=== PATIENT | female | born 1975 | race Caucasian/White ===

== ENCOUNTER 2016-07-12 11:07 | Emergency (ER) | payer OTHER ==
[~2016-07-12] VITALS: Ht 167.6 cm; Wt 132.5 kg
[~2016-07-12 11:07] MED LIST: FURO20TA3 PO; LACT20SO12 PO; PANT40TA3 PO; PROP10TA6 PO; [UNRECOGNIZED DRUG - CODE] PO
[2016-07-12 11:13] VITALS: Ht 167.6 cm; Wt 132.5 kg
[2016-07-12 12:33] LABS: HEMATOCRIT 24.6 % (37.0-47.0); HEMOGLOBIN 7.4 g/dl (12.0-16.0); MEAN CORPUSCULAR HEMOGLOBIN 20.2 pg (29.0-33.0); MEAN CORPUSCULAR HGB CONC 30.1 g/dl (32.0-37.0); MEAN CORPUSCULAR VOLUME 67.3 fl (82.0-101.0); MEAN PLATELET VOLUME 9.4 fl (7.4-10.4); PLATELET COUNT 139 10^3/UL (140-440); RED BLOOD COUNT 3.65 10^6/ul (4.20-5.40); RED CELL DISTRIBUTION WIDTH 19.7 % (11.5-14.5); UNCORRECTED WBC 3.4 10^3/ul (4.8-10.8); WHITE BLOOD COUNT 3.4 10^3/ul (4.8-10.8)
[2016-07-12 12:34] LABS: CONDITION 1; LH ANALYZER COMMENTS 1
[2016-07-12 12:47] LABS: ALBUMIN 4.4 g/dl (3.3-4.9); CHLORIDE 104 mmol/L (97-110)
[2016-07-12 12:48] LABS: POTASSIUM 4.7 mmol/L (3.5-5.1); SODIUM 143 mmol/L (135-144)
[2016-07-12 12:50] LABS: ALBUMIN/GLOBULIN RATIO 0.84; ANION GAP 19 (8-16); ASPARTATE AMINO TRANSFERASE 54 IU/L (15-46); BLOOD UREA NITROGEN 13 mg/dl (7-20); CARBON DIOXIDE 25 mmol/L (21-31); CREATININE 0.65 mg/dl (0.44-1.00); TOTAL PROTEIN 9.6 g/dl (6.1-8.1)
[2016-07-12 12:51] LABS: ALANINE AMINOTRANSFERASE 27 IU/L (13-69); ALKALINE PHOSPHATASE 128 IU/L (42-121); CALCIUM 10.2 mg/dl (8.4-10.2); GLUCOSE 86 mg/dl (70-220)
[2016-07-12 12:58] LABS: B-TYPE NATRIURETIC PEPTIDE 175 PG/ML (0-125)
[2016-07-12 13:05] LABS: INR 1.13; PROTIME 14.5 Sec (12.2-14.2); PT RATIO 1.1
[2016-07-12 13:06] LABS: PARTIAL THROMBOPLASTIN TIME 32.7 Sec (25.0-35.0)
[2016-07-12 13:08] LABS: EOSINOPHILS # 0.1 10^3/ul (0.0-0.5); MONOCYTE # 0.1 10^3/ul (0.3-0.9); NEUTROPHIL # 2.1 10^3/ul (1.6-7.5); OVALOCYTES 1+
--- NOTE | 2016-07-12 13:08 | RADRPT ---
PROCEDURE: XR Chest. CLINICAL INDICATION: Chest pain TECHNIQUE: Single portable view of the chest was obtained COMPARISON: 04/05/16 FINDINGS: The heart is enlarged. The lungs are clear. There is no pleural effusion or pneumothorax. RPTAT: AA IMPRESSION: Mild Cardiomegaly. .Jose De Jesus Topete MD, MD Date Time Electronically viewed and signed by .Jose De Jesus Topete MD, on 07/12/2016 13:08 .S/
[2016-07-12 13:09] LABS: TROPONIN-I < 0.010 ng/ml (0.00-0.12)
[2016-07-12] MEDS ORDERED: LIDOCAINE 1% (MPF) 5 ML VIAL ONE (13:57)
--- NOTE | 2016-07-12 14:16 | ERD ---
ER Documentation Chief Complaint Date/Time DATE: 07/12/16 TIME: 14:14 Chief Complaint Complains of SOB, Hx of Ascites HPI This a 41-year-old female with a history of ascites due to liver cirrhosis. She is complaining she is getting shortness of breath over the past week or 2 and sure ascites is getting worse. She said when her ascites gets bad she has a hard time breathing. She also has anemia and is wondering if her shortness of breath is because of this. She states she has a very difficult blood type to match and he can take over 24 hours at times to find blood for her. She has no chest pain no cough no fever no abdominal pain no melena ROS All systems reviewed and are negative except as per history of present illness. Medications Home Meds Active Scripts Propranolol Hcl* (Propranolol Hcl*) 10 Mg Tablet, 10 MG PO TID for 30 Days, TAB Prov:DILLAN JOHNSON NP 04/10/16 Furosemide* (Furosemide*) 20 Mg Tablet, 20 MG PO BID for 30 Days, #30 TAB Prov:DILLAN JOHNSON NP 04/10/16 Pantoprazole* (Protonix*) 40 Mg Tablet.dr, 40 MG PO BID for 30 Days, TAB Prov:DILLAN JOHNSON NP 04/10/16 Levothyroxine Sodium* (Synthroid*) 200 Mcg Tablet, 275 MCG PO BEFORE BREAKFAST, #30 TAB Prov:DILLAN JOHNSON NP 04/10/16 Lactulose* (Cephulac*) 20 Gm/30 Ml Soln, 20 GM PO Q8 for 30 Days Prov:DILLAN JOHNSON NP 04/10/16 Allergies Allergies: Coded Allergies: No Known Allergy (Unverified , 07/12/16) PMhx/Soc History of Surgery: Yes (Left ankle sx, Abdominal sx) Anesthesia Reaction: No Hx Neurological Disorder: No Hx Respiratory Disorders: No Hx Cardiac Disorders: Yes (Murmurs) Hx Psychiatric Problems: No Hx Miscellaneous Medical Probl: Yes (Autoimmune hepatitis, lupus, cirrhosis, symptomatic anemia) Hx Alcohol Use: No Hx Substance Use: No Hx Tobacco Use: No Smoking Status: Never smoker FmHx Family History: No coronary disease Physical Exam Vitals Vital Signs Date Time Temp Pulse Resp B/P Pulse Ox O2 Delivery O2 Flow Rate FiO2 07/12/16 11:13 98.2 73 20 137/62 94 Physical Exam Const: Well-developed, well-nourished Head: Atraumatic, normocephalic Eyes: Normal Conjunctiva, PERRLA, EOMI, normal sclera, no nystagmus ENT: Normal External Ears, Nose and Mouth, moist mucus membranes. Neck: Full range of motion. No meningismus, no lymphadenopathy. Resp: Clear to auscultation bilaterally, no wheezing, rhonchi, rales Cardio: Regular rate and rhythm, no murmurs, S1 S2 present Abd: Soft, non tender x 4, mild to moderate distention with ascites. Normal bowel sounds, no guarding or rebound, no pulsitile abdominal masses or bruits Skin: No petechiae or rashes, no ecchymosis , no maculopapular rash Back: No midline or flank tenderness Ext: No cyanosis, or edema, FROM x 4, normal inspection, neurovascularly intact x 4 Neur: Awake and alert, STR 5/5 x 4, sensation intact x 4, no focal findings, cerebellum intact Psych: Normal Mood and Affect Result Diagram: 07/12/16 1210 07/12/16 1210 Results 24 hrs Laboratory Tests Test 07/12/16 12:10 Activated Partial Thromboplast Time 32.7Sec Alanine Aminotransferase (ALT/SGPT) 27IU/L Albumin 4.4g/dl Albumin/Globulin Ratio 0.84 Alkaline Phosphatase 128IU/L Anion Gap 19 Aspartate Amino Transf (AST/SGOT) 54IU/L B-Type Natriuretic Peptide 175PG/ML Blood Morphology Comment Blood Urea Nitrogen 13mg/dl Calcium Level 10.2mg/dl Carbon Dioxide Level 25mmol/L Chloride Level 104mmol/L Creatinine 0.65mg/dl Direct Bilirubin 0.00mg/dl Eosinophils # 0.110^3/ul Eosinophils % 4.0% Globulin 5.20g/dl Glucose Level 86mg/dl Hematocrit 24.6% Hemoglobin 7.4g/dl INR International Normalized Ratio 1.13 Indirect Bilirubin 1.0mg/dl Lymphocytes # 1.010^3/ul Lymphocytes % 30.0% Mean Corpuscular Hemoglobin 20.2pg Mean Corpuscular Hemoglobin Concent 30.1g/dl Mean Corpuscular Volume 67.3fl Mean Platelet Volume 9.4fl Monocytes # 0.110^3/ul Monocytes % 3.0% Neutrophils # 2.110^3/ul Neutrophils % 63.0% Nucleated Red Blood Cells # 10^3/ul Ovalocytes 1+ Platelet Count 72404^3/UL Potassium Level 4.7mmol/L Prothrombin Time 14.5Sec Prothrombin Time Ratio 1.1 Red Blood Count 3.6510^6/ul Red Cell Distribution Width 19.7% Sodium Level 143mmol/L Total Bilirubin 1.0mg/dl Total Protein 9.6g/dl Troponin I < 0.010ng/ml White Blood Count 3.410^3/ul Current Medications Medications (Trade) Dose Ordered Sig/Kevin Route PRN Reason Start Time Stop Time Status Last Admin Dose Admin Lidocaine (Xylocaine 1% (Mpf)) 5 ml STK-MED ONCE .ROUTE 07/12/16 13:57 07/12/16 13:58 DC Procedures/MDM PROCEDURE: XR Chest. CLINICAL INDICATION: Chest pain TECHNIQUE: Single portable view of the chest was obtained COMPARISON: 04/05/16 FINDINGS: The heart is enlarged. The lungs are clear. There is no pleural effusion or pneumothorax. RPTAT: AA IMPRESSION: Mild Cardiomegaly. .Jose De Jesus Topete MD, MD Date Time Electronically viewed and signed by .Jose De Jesus Topete MD, MD on 07/12/2016 13: 08 .S/ CC: MANINDER WEEKS DO Patient underwent ultrasound-guided paracentesis with successful fluid removal. After procedure patient is saying that her breathing is back to normal. Told the patient her hemoglobin is 7.4 and needs to go her primary to have a type and cross because her blood type is hard to find a match so that is ready for her to get soon. She says she will do so Departure Diagnosis: Primary Impression: Ascites Ascites type: other type Qualified Code: R18.8 - Other ascites Additional Impression: Anemia Anemia type: unspecified type Qualified Code: D64.9 - Anemia, unspecified type Condition: Stable Patient Instructions: Anemia, Iron Deficiency (Adult), Ascites MANINDER WEEKS DO Jul 12, 2016 14:16
[2016-07-12 14:55] VITALS: BP 140/75; PULSE 77; RESP 18
--- NOTE | 2016-07-12 15:06 | RADRPT ---
PROCEDURE: Ultrasound guided paracentesis. CLINICAL INDICATION: Ascites and shortness of breath. COMPARISON: 04/07/2016. TECHNIQUE: The risks, benefits, and alternatives were explained to the patient, including but not limited to bl eeding, infection, pain, visceral or vascular damage, shock, and . The patient understood the risks and the alternatives and wished to proceed with the procedure. Informed written consent was o btained. A procedural time out was performed. The patient's name, date of , and procedure to b e performed were verified. Utilizing ultrasound guidance, optimal location for entry to the peritoneal cavity was ascertained. The overlying skin was prepped and draped in the usual sterile fashion. Approximately 10 ml of 1% Xylocaine was injected locally for pain control. Using ultrasound guidance, an 8 [place] catheter wa s introduced into the peritoneal cavity in the right lower quadrant without difficulty. FINDINGS: Initial images demonstrate ascites. Approximately 3.75 liters of serous fluid was aspirated and dis carded. The patient tolerated the procedure well without complication. IMPRESSION: 1. Successful ultrasound-guided paracentesis. RPTAT: QQ .Thomas Talavera MD, MD Date Time Electronically viewed and signed by .Thomas Talavera MD, on 07/12/2016 15:06 .R/
== END 2016-07-12 15:05 | disposition home or self-care (01) ==
LOC: E/R 11:07
DX: R18.8 Other ascites (principal); D64.9 Anemia, unspecified
CPT/HCPCS: 36415; 71010; 80053; 83880; 84484; 85025; 85610; 85730; Z7502; Z7610

== ENCOUNTER 2016-07-16 15:57 | Inpatient (IN) | payer OTHER ==
[~2016-07-16] VITALS: Ht 170.2 cm; Wt 131.0 kg
[2016-07-16] MEDS ORDERED: ACETAMINOPHEN 500 MG TAB PO STA (16:42)
[2016-07-16] MEDS ORDERED: ONDANSETRON 4 MG INJ IV STA (16:42)
[2016-07-16] MEDS ORDERED: SOD CHLORIDE 0.9% 1,000 ML IV STA ×2 (16:42→19:05)
[2016-07-16] MEDS ORDERED: morphine 4 MG/ML VIAL IV STA (16:42)
[2016-07-16] MEDS ORDERED: CEFOTAXIME 2 GM/50 ML (PMX) 50 ML IVPB ONE ×2 (17:00→17:06)
[2016-07-16 17:06] LABS: ADD UMIC YES; URINE BILIRUBIN (Dip) 1+ (NEGATIVE); URINE BLOOD (Dip) NEGATIVE (NEGATIVE); URINE COLOR YELLOW (YELLOW); URINE GLUCOSE (Dip) NEGATIVE (NEGATIVE); URINE KETONES (Dip) NEGATIVE (NEGATIVE); URINE LEUKOCYTE ESTERASE (Dip) TRACE (NEGATIVE); URINE NITRITE (Dip) NEGATIVE (NEGATIVE); URINE TOTAL PROTEIN (Dip) 1+ (NEGATIVE); URINE UROBILINOGEN (Dip) 1.0 E.U./dL (0.1-1.0)
--- NOTE | 2016-07-16 17:14 | RADRPT ---
PROCEDURE: XR Chest. CLINICAL INDICATION: Chest pain TECHNIQUE: Single portable view of the chest was obtained COMPARISON: 07/12/16 FINDINGS: The heart is enlarged. The lungs are clear. There is mild elevation of the right diaphragm. There is no pleural effusion or pneumothorax. RPTAT: AA IMPRESSION: Moderate Cardiomegaly. .Jose De Jesus Topete MD, MD Date Time Electronically viewed and signed by .Jose De Jesus Topete MD, on 07/16/2016 17:13 .S/
[2016-07-16 17:17] LABS: INR 1.18; PROTIME 15.1 Sec (12.2-14.2); PT RATIO 1.2
[2016-07-16 17:18] LABS: PARTIAL THROMBOPLASTIN TIME 23.7 Sec (25.0-35.0)
[2016-07-16 17:21] LABS: CHLORIDE 101 mmol/L (97-110)
[2016-07-16 17:22] LABS: ALBUMIN 4.6 g/dl (3.3-4.9); POTASSIUM 5.2 mmol/L (3.5-5.1); SODIUM 142 mmol/L (135-144)
[2016-07-16 17:24] LABS: BILIRUBIN,INDIRECT 1.5 mg/dl (0-1.1); BILIRUBIN,TOTAL 1.5 mg/dl (0.2-1.3); CREATININE 1.03 mg/dl (0.44-1.00)
[2016-07-16 17:25] LABS: ALANINE AMINOTRANSFERASE 32 IU/L (13-69); ALBUMIN/GLOBULIN RATIO 0.85; ALKALINE PHOSPHATASE 149 IU/L (42-121); ANION GAP 21 (8-16); ASPARTATE AMINO TRANSFERASE 60 IU/L (15-46); BLOOD UREA NITROGEN 18 mg/dl (7-20); CALCIUM 10.7 mg/dl (8.4-10.2); CARBON DIOXIDE 25 mmol/L (21-31); GLUCOSE 90 mg/dl (70-220)
[2016-07-16 17:29] LABS: HEMATOCRIT 25.7 % (37.0-47.0); HEMOGLOBIN 7.8 g/dl (12.0-16.0); MEAN CORPUSCULAR HEMOGLOBIN 20.1 pg (29.0-33.0); MEAN CORPUSCULAR HGB CONC 30.2 g/dl (32.0-37.0); MEAN CORPUSCULAR VOLUME 66.6 fl (82.0-101.0); MEAN PLATELET VOLUME 10.5 fl (7.4-10.4); PLATELET COUNT 142 10^3/UL (140-440); RED BLOOD COUNT 3.86 10^6/ul (4.20-5.40); UNCORRECTED WBC 10.6 10^3/ul (4.8-10.8); WHITE BLOOD COUNT 10.6 10^3/ul (4.8-10.8)
[2016-07-16 17:31] LABS: CONDITION 1; LH ANALYZER COMMENTS 1
--- NOTE | 2016-07-16 17:31 | ERA ---
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 The patient states that she had a paracentesis last Tuesday. Over the past several days the patient notes diffuse left-sided abdominal pain that is moderate to severe and cramping. She denies any associated diarrhea, nausea or vomiting. She has noted a fever today. She denies any dysuria urgency or frequency. No chest pain or cough. ROS All systems reviewed and are negative except as per history of present illness. Medications Home Meds Active Scripts Propranolol Hcl* (Propranolol Hcl*) 10 Mg Tablet, 10 MG PO TID for 30 Days, TAB Prov:DILLAN JOHNSON NP 04/10/16 Furosemide* (Furosemide*) 20 Mg Tablet, 20 MG PO BID for 30 Days, #30 TAB Prov:DILLAN JOHNSON NP 04/10/16 Pantoprazole* (Protonix*) 40 Mg Tablet.dr, 40 MG PO BID for 30 Days, TAB Prov:DILLAN JOHNSON NP 04/10/16 Levothyroxine Sodium* (Synthroid*) 200 Mcg Tablet, 275 MCG PO BEFORE BREAKFAST, #30 TAB Prov:DILLAN JOHNSON NP 04/10/16 Lactulose* (Cephulac*) 20 Gm/30 Ml Soln, 20 GM PO Q8 for 30 Days Prov:DILLAN JOHNSON NP 04/10/16 Allergies Allergies: Coded Allergies: No Known Allergy (Unverified , 07/16/16) PMhx/Soc History of Surgery: Yes (Left ankle sx, Abdominal sx) Anesthesia Reaction: No Hx Neurological Disorder: No Hx Respiratory Disorders: No Hx Cardiac Disorders: Yes (Murmurs) Hx Psychiatric Problems: No Hx Miscellaneous Medical Probl: Yes (Autoimmune hepatitis, lupus, cirrhosis, symptomatic anemia) Hx Alcohol Use: No Hx Substance Use: No Hx Tobacco Use: No FmHx Family History: No diabetes Physical Exam Vitals Vital Signs Date Time Temp Pulse Resp B/P Pulse Ox O2 Delivery O2 Flow Rate FiO2 07/16/16 22:40 98.3 75 20 111/61 97 Nasal Cannula 3.0 07/16/16 21:15 99.2 73 20 76/29 97 Nasal Cannula 3.0 07/16/16 20:32 Nasal Cannula 3 07/16/16 18:30 99.2 83 20 117/43 94 Nasal Cannula 3.0 07/16/16 18:15 100.0 78 103/39 92 Nasal Cannula 3.0 07/16/16 17:00 102.5 82 120/70 92 Room Air 07/16/16 16:04 102.9 98 20 144/63 99 Physical Exam General: Well developed, well nourished, no acute distress Head: Normocephalic, atraumatic. Eyes: Pupils equally reactive, EOM intact ENT: Moist mucous membranes Neck: Supple, no lymphadenopathy Respiratory: Lungs clear bilaterally, no distress Cardiovascular: RRR, no murmurs, rubs, or gallops Abdominal: Soft, protuberant with fluid wave, left-sided abdominal tenderness without rebound or guarding : Deferred MSK: No edema, no unilateral swelling, 5/5 strength Neurologic: Alert and oriented, moving all extremities, normal speech, no focal weakness, no cerebellar signs Skin: No rash Psych: Normal mood Result Diagram: 07/16/16 1640 07/16/16 1640 Results 24 hrs Laboratory Tests Test 07/16/16 16:40 07/16/16 17:13 07/16/16 21:30 Activated Partial Thromboplast Time 23.7Sec Alanine Aminotransferase (ALT/SGPT) 32IU/L Albumin 4.6g/dl Albumin/Globulin Ratio 0.85 Alkaline Phosphatase 149IU/L Anion Gap 21 Aspartate Amino Transf (AST/SGOT) 60IU/L Band Neutrophils % 14.0% Blood Morphology Comment Blood Urea Nitrogen 18mg/dl Calcium Level 10.7mg/dl Carbon Dioxide Level 25mmol/L Chloride Level 101mmol/L Creatinine 1.03mg/dl Direct Bilirubin 0.00mg/dl Eosinophils # 0.210^3/ul Eosinophils % 2.0% Globulin 5.40g/dl Glucose Level 90mg/dl Hematocrit 25.7% Hemoglobin 7.8g/dl INR International Normalized Ratio 1.18 Indirect Bilirubin 1.5mg/dl Lactic Acid Level 2.9mmol/L 0.8mmol/L Large Platelets OCCASIONAL Lymphocytes # 0.710^3/ul Lymphocytes % 7.0% Mean Corpuscular Hemoglobin 20.1pg Mean Corpuscular Hemoglobin Concent 30.2g/dl Mean Corpuscular Volume 66.6fl Mean Platelet Volume 10.5fl Monocytes # 0.510^3/ul Monocytes % 5.0% Neutrophils # 7.610^3/ul Neutrophils % 72.0% Nucleated Red Blood Cells % 1.0/100WBC Ovalocytes FEW Platelet Count 18172^3/UL Polychromasia OCCASIONAL Potassium Level 5.2mmol/L Prothrombin Time 15.1Sec Prothrombin Time Ratio 1.2 Red Blood Count 3.8610^6/ul Red Cell Distribution Width 20.0% Sodium Level 142mmol/L Total Bilirubin 1.5mg/dl Total Protein 10.0g/dl Troponin I < 0.012ng/ml Urine Bacteria FEW Urine Bilirubin 1+ Urine Clarity CLOUDY Urine Color YELLOW Urine Glucose NEGATIVE% Urine Hemoglobin NEGATIVE Urine Ictotest POSITIVE Urine Ketones NEGATIVE Urine Leukocyte Esterase TRACE Urine Microscopic RBC 0-2/HPF Urine Microscopic WBC 10-25/HPF Urine Nitrite NEGATIVE Urine Specific [place] 1.010 Urine Squamous Epithelial Cells MANY Urine Total Protein 1+ Urine Urobilinogen 1.0 E.U./dL Urine pH 6.5 White Blood Count 10.610^3/ul Body Fluid Appearance CLOUDY Body Fluid Color GREEN[place] YELLOW Body Fluid Lymphocytes (%) 6% Body Fluid Monocytes % 19% Body Fluid Neutrophils % 75% Body Fluid RBC 1+ Body Fluid Type ASCITES Body Fluid Volume 1100.0ml Body Fluid WBC 4762/cmm Current Medications Medications (Trade) Dose Ordered Sig/Kevin Route PRN Reason Start Time Stop Time Status Last Admin Dose Admin Sodium Chloride (NS) 1,000 ml @ 1,000 mls/hr Q1H STAT IV 07/16/16 16:42 07/16/16 17:41 DC 07/16/16 17:49 Morphine Sulfate (morphine) 4 mg ONCE STAT IV 07/16/16 16:42 07/16/16 16:46 DC 07/16/16 17:48 Ondansetron HCl 4 mg 4 mg ONCE STAT IV 07/16/16 16:42 07/16/16 16:46 DC 07/16/16 17:49 Cefotaxime Sodium/ Dextrose (Claforan 2gm/50 ml (Pmx)) 50 ml @ 100 mls/hr ONCE ONCE IVPB 07/16/16 17:00 07/16/16 17:29 Cancel Acetaminophen 1000 mg 1,000 mg ONCE STAT PO 07/16/16 16:42 07/16/16 16:46 DC 07/16/16 17:39 Cefotaxime Sodium/ Dextrose (Claforan 2gm/50 ml (Pmx)) 50 ml @ 100 mls/hr ONCE ONCE IVPB 07/16/16 17:06 07/16/16 17:29 DC 07/16/16 18:37 Lidocaine 5 ml 5 ml STK-MED ONCE .ROUTE 07/16/16 17:35 07/16/16 17:36 DC Sodium Chloride (NS) 1,000 ml @ 1,000 mls/hr Q1H STAT IV 07/16/16 19:05 07/16/16 20:04 DC 07/16/16 20:24 Sodium Chloride (NS) 2,030 ml BOLUS OVER 2 HOURS STAT IV* 07/16/16 19:06 07/16/16 19:08 DC 07/16/16 20:24 Ondansetron HCl (Zofran Inj) 4 mg ER BRIDGE PRN IV NAUSEA AND/OR VOMITING 07/16/16 20:00 07/17/16 19:59 Acetaminophen 650 mg 650 mg ER BRIDGE PRN PO MILD PAIN/FEVER 07/16/16 20:00 07/17/16 19:59 Albumin Human 50 ml @ 100 mls/hr ONCE ONCE IV 07/16/16 20:00 07/16/16 20:29 DC 07/16/16 20:26 Sodium Chloride 250 ml @ 0 mls/hr Q0M ONCE IV 07/16/16 19:52 07/16/16 19:54 DC Sodium Chloride (NS) 1,000 ml @ 75 mls/hr [id number] IV 07/16/16 20:30 IV Flush (NS 3 ml) 3 ml PER PROTOCOL IV 07/16/16 20:30 Lorazepam (Ativan) 0.5 mg Q6H PRN IV ANXIETY 07/16/16 20:30 Ondansetron HCl (Zofran Inj) 4 mg Q6H PRN IV NAUSEA AND/OR VOMITING 07/16/16 20:30 Nitroglycerin (Nitroglycerin (Sl Tab) 0.4 Mg) 1 tab Q5M PRN SL CHEST PAIN 07/16/16 20:30 Acetaminophen (Tylenol Supp) 650 mg Q6H PRN HI PAIN LEVEL 1-3 OR FEVER 07/16/16 20:30 Morphine Sulfate (morphine) 2 mg Q4H PRN IV PAIN LEVEL 7-10 07/16/16 20:30 Pantoprazole 40 mg 40 mg DAILY@06 IV 07/17/16 06:00 Ceftriaxone Sodium 50 ml @ 100 mls/hr Q24H IVPB 07/16/16 22:00 07/16/16 22:00 DC Cefepime HCl (Maxipime 1gm/50 ml (Pmx)) 50 ml @ 100 mls/hr Q12 IVPB 07/16/16 21:00 07/16/16 22:37 Vancomycin HCl VANCOMYCIN PER PHARMACY PER PROTOCOL XX 07/16/16 21:00 UNV Norepinephrine (Levophed) 250 ml @ 7.5 mls/hr ONCE STAT IV 07/16/16 22:02 07/18/16 07:21 07/16/16 22:36 Procedures/MDM EKG, MONITORS, & DIAGNOSTIC IMAGING: Ultrasound paracentesis: Radiology directed ultrasound-guided paracentesis both diagnostic and therapeutic Chest x-ray: I reviewed and interpreted a 1 view of the chest Mediastinum: No enlargement Cardiac silhouette: No cardiomegaly Airspace: Clear lung alston bilaterally without evidence of pneumothorax Bones: No evidence of fracture CT abdomen and pelvis: IMPRESSION: 1. Hepatomegaly and cirrhosis are noted, with signs of portal hypertension including massive splenomegaly, moderate gastroesophageal varices, and small to mild amount of ascites. 2. Coronary arterial and aortoiliac atherosclerotic calcifications are present. 3. Cholelithiasis is seen without evidence for cholecystitis. 4. Fat and fluid containing periumbilical ventral hernia is noted, without incarceration. 5. Sigmoid diverticulosis is noted, without diverticulitis. 6. Small nonobstructive renal calculi are seen bilaterally, without ureterolithiasis or obstructive uropathy. 7. No mass, lymphadenopathy or abscess is identified. RPTAT: PP PROCEDURE: Central Line Note: Consent: I had a discussion with the patient and family regarding the procedure and discussed risks, benefits, alternatives. They have given verbal informed consent and a document was signed and placed in the chart. Indication: Critically ill patient requiring specialized vascular access for fluid or pressor management Location: Right IJ Procedure: Sterile procedure was observed throughout insertion of the central line. The insertion site was prepped with sterile solution. Ultrasound-guided identification of the vein was performed. Insertion of a needle into the vein was obtained with return of dark, nonpulsatile blood. The wire was then threaded through the needle without complication. The wire was then identified within the vein using ultrasound. A small skin incision was made, the needle was removed intact, dilation of the vein was performed and insertion of a triple lumen catheter was completed. The catheter was then sutured to the skin. All 3 ports judit back and flushed without difficulty. A sterile dressing was applied. The patient tolerated the procedure well there were no complications. Emergency Bedside Ultrasound: The patient was verbally consented prior to procedure and understands the risks , benefits, and alternatives. The patient is agreeable to procedure and has given verbal consent. Indication: Central line Probe Type: Linear Findings: Dynamic ultrasound utilizing compressive technique with both linear and horizontal views, additional images showing wire within the venous system were obtained. The images were unable to be saved given this ultrasound does not have printer access A post-line chest x-ray was ordered as indicated. Chest x-ray: I reviewed and interpreted a 1 view of the chest Mediastinum: No enlargement Cardiac silhouette: No cardiomegaly Airspace: Clear lung alston bilaterally without evidence of pneumothorax Bones: No evidence of fracture Triple-lumen catheter in good position LAB INTERPRETATION: No significant leukocytosis, subtle elevation of potassium, ascites fluid is consistent with SBP Lactic acidosis that has improved, anemia MEDICAL DECISION MAKING: The patient presents with fever with recent paracentesis in the setting of cirrhosis. This raises the concern for spontaneous bacterial peritonitis or bacterial peritonitis secondary to procedure. Also consider pyelonephritis, diverticulitis or other acute intra-abdominal process. Laboratory testing as well as diagnostic imaging will be initiated. The patient will be given antipyretics and empiric antibiotics. Cefotaxime 2 g was provided after paracentesis and fluid collection. Blood cultures were taken prior to antibiotics. Because he would like to avoid aggressive volume overload in this cirrhotic patient the patient was started with 1 L of saline. She will be reevaluated for signs of severe sepsis. If the patient meets criteria than a full 30/kg bolus will be provided. ER COURSE: The patient's pain was improved. The patient now meets SIRS criteria with a source. The patient was given cefotaxime 2 g. The patient's blood pressure has steadily trended down after paracentesis. It is possible this is related to fluid shifts however with the patient's lactic acid elevation this is possibly consistent with severe sepsis or septic shock. The patient has been written for a total of 30 cc/kg bolus. This is over 4 L. She was also written for some albumin. The patient may benefit from a central line and had the conversation with the patient. At this time however we will attempt fluid resuscitation initially. The patient's blood pressure continued to be poor despite fluid resuscitation and albumin. The patient had received appropriate antibiotics. This is possibly related to a combination of severe sepsis, possible septic shock and fluid shifts secondary to large volume paracentesis. A triple-lumen catheter was placed and the patient was started on levo the patient also received a blood transfusion of 2 units packed red blood cells however the patient has significant antibodies and there will be a delay from a bank for administration of these units. The patient was consented and states understanding of risks, benefits, alternatives. The patient has been upgraded to the intensive care unit. I kept the patient and/or family informed of laboratory and diagnostic imaging results throughout the emergency room course. DISPOSITION PLAN: ICU CONSULTATION: Accepting care team and consultations: I discussed the current laboratory data, diagnostic imaging and emergency care provided. Admitting team: Dr. Weathers Admitting team indication: Insurance directed Sepsis Documentation: Patient's infectious symptoms have not stabilized and the patient is at risk of rapid decompensation. The patient will be admitted for careful hydration, antibiotic therapy, and infectious source control. SEVERE SEPSIS CRITERIA: Infectious source: Spontaneous bacterial peritonitis End organ damage indicated by: [Lactate > 2.0 mmol/L SEPSIS MANAGEMENT Time of recognition of severe sepsis/septic shock: 7:21 PM upon results of ascites fluid 3 HOUR BUNDLE Blood cultures x 2 before broad-spectrum antibiotics: Yes 30 ml/kg NS bolus pending completion Initial lactate 2.9 Repeat lactate less than 1 SEPTIC SHOCK ASSESSMENT: No lactic acid > 4.0 Patient eventually developed (SBP < 90 or 40 mmHg drop, MAP < 65) despite 30 mL/ kg IV fluid bolus VOLUME REASSESSMENT FOR SEPTIC SHOCK: Reevaluation Time: 10:00 PM Temperature of 98.3 heart rate is 75 respiratory rate of 20 blood pressure 111/ 61 and pulse ox 97 Heart Regular rate & rhythm Lungs No crackles Skin Warm & dry Cap Refill Less than 2 seconds Peripheral pulses Radially present PERSISTENT HYPOTENSION TREATMENT: Comfort care No Central line right IJ Vasopressor started levo I considered further perfusion assessment with CVP measurement, SCVO2, bedside ultrasound volume assessment, passive leg raise, trial of further fluid bolus. And proceeded with 30 ml/kg fluid bolus of NSS, broad spectrum antbiotics, and admission. CRITICAL CARE Critical care time 35 minutes Emergent fluid management while maintaining close respiratory support. Provision of immediate and broad-spectrum antibiotic therapy. Simultaneous assessment for possible sources in order to direct targeted therapy. Consideration for invasive and chemical support to prevent cardiopulmonary collapse. Critical care time is independent of procedures performed. Departure Diagnosis: Primary Impression: Cirrhosis Qualified Code: K74.60 - Cirrhosis of liver with ascites, unspecified hepatic cirrhosis type Additional Impressions: Severe sepsis Spontaneous bacterial peritonitis Septic shock Iron deficiency anemia Qualified Code: D50.9 - Iron deficiency anemia, unspecified iron deficiency anemia type Condition: SHARYN Lamar MD Jul 16, 2016 17:31
[2016-07-16] MEDS ORDERED: LIDOCAINE 1% (MPF) 5 ML VIAL ONE (17:35)
[2016-07-16 17:43] LABS: BACTERIA,URINE FEW; SQUAMOUS EPITHELIAL CELL,UR MANY; URINE RBCS 0-2 /HPF (0)
[2016-07-16 17:44] LABS: ICTOTEST POSITIVE (NEGATIVE)
[2016-07-16 17:51] LABS: TROPONIN-I < 0.012 ng/ml (0.00-0.12)
--- NOTE | 2016-07-16 18:03 | RADRPT ---
PROCEDURE: Ultrasound guided paracentesis. CLINICAL INDICATION: Old COMPARISON: 07/12/2016. TECHNIQUE: The risks, benefits, and alternatives were explained to the patient, including but not limited to bl eeding, infection, pain, visceral or vascular damage, shock, and . The patient understood the risks and the alternatives and wished to proceed with the procedure. Informed written consent was o btained. A procedural time out was performed. The patient's name, date of , and procedure to b e performed were verified. Utilizing ultrasound guidance, optimal location for entry to the peritoneal cavity was ascertained. The overlying skin was prepped and draped in the usual sterile fashion. Approximately 10 ml of 1% Xylocaine was injected locally for pain control. Using ultrasound guidance, an 8 Prydeinig catheter wa s introduced into the peritoneal cavity in the right lower quadrant without difficulty. FINDINGS: Initial images demonstrate ascites. Approximately 2.6 liters of serous fluid was aspirated and sent for laboratory analysis. The patient tolerated the procedure well without complication. IMPRESSION: 1. Successful ultrasound-guided paracentesis. RPTAT: QQ .Thomas Talavera MD, Date Time Electronically viewed and signed by .Thomas Talavera MD, on 07/16/2016 18:03 .R/
[2016-07-16] MEDS ORDERED: SODIUM CHLORIDE 0.9% 1L BAG IV* STA (19:06)
[2016-07-16 19:16] LABS: FLUID APPEARANCE CLOUDY; FLUID TYPE ASCITES
[2016-07-16 19:18] LABS: FLUID LYMPHOCYTES 6 %; FLUID MONOCYTES 19 %; FLUID NEUTROPHILS 75 %; FLUID RBC EST 1+; FLUID WBC'S 4762 /cmm
--- NOTE | 2016-07-16 19:42 | RADRPT ---
PROCEDURE: CT Abdomen and Pelvis without contrast. CLINICAL INDICATION: Fever and abdominal pain post paracentesis TECHNIQUE: CT of the abdomen and pelvis was performed on a multi-detector scanner without IV contr ast. Coronal and sagittal images were reformatted from the axial data set. One or more of the foll owing dose reduction techniques were used: automated exposure control, adjustment of the mA and/or kV according to patient size, use of iterative reconstruction technique. CTDI = 23.63, 23.12 mGy. D LP = 2174.69 mGy-cm. COMPARISON: None available FINDINGS: CT abdomen: There is mild bibasilar atelectasis. The heart size is normal. Small amount of pericardial fluid i s noted. Coronary arterial calcification is present. Hepatomegaly is noted (26 cm), without gross evidence of focal mass. Liver surface is nodular, suggesting cirrhosis. Cholelithiasis is noted, w ithout evidence for cholecystitis. Biliary tree and pancreas are grossly unremarkable. There is ma ssive splenomegaly, measuring 24 cm in maximal dimension. Adrenal glands are unremarkable. Small b ilateral nonobstructive renal calculi are noted, without ureterolithiasis or obstructive uropathy. The stomach is grossly unremarkable. Moderate gastroesophageal varices are noted. The aorta is of normal caliber. Aortic vascular calcifications are present. There is no retroperit nazario lymphadenopathy. The leandra hepatis region is clear. CT pelvis: No bowel obstruction, free intraperitoneal air or abscess is identified. Sigmoid diverticulosis is seen without diverticulitis. There is no appendicitis or colitis. Small to mild amount of ascites is present. Fat and fluid containing periumbilical ventral hernia is noted, without incarceration. Urinary bladder is grossly unremarkable. No pelvic mass or lymphadenopathy is identified. The surrounding osseous structures are unremarkable. No osteolytic or osteoblastic lesion is detect ed. IMPRESSION: 1. Hepatomegaly and cirrhosis are noted, with signs of portal hypertension including massive spleno megaly, moderate gastroesophageal varices, and small to mild amount of ascites. 2. Coronary arterial and aortoiliac atherosclerotic calcifications are present. 3. Cholelithiasis is seen without evidence for cholecystitis. 4. Fat and fluid containing periumbilical ventral hernia is noted, without incarceration. 5. Sigmoid diverticulosis is noted, without diverticulitis. 6. Small nonobstructive renal calculi are seen bilaterally, without ureterolithiasis or obstructive uropathy. 7. No mass, lymphadenopathy or abscess is identified. RPTAT: PP .Yfn Hardin MD, MD Date Time Electronically viewed and signed by .Ynf Hardin MD, MD on 07/16/2016 19:42 .R/
[2016-07-16] MEDS ORDERED: SOD CHLORIDE 0.9% 250 ML IV ONE (19:52)
[2016-07-16] MEDS ORDERED: ALBUMIN HUMAN 25% 50 ML IV ONE (20:00)
[2016-07-16] MEDS ORDERED: ONDANSETRON 4 MG INJ IV PRN (20:00)
[2016-07-16] MEDS ORDERED: ACETAMINOPHEN 325 MG TAB PO PRN (20:00)
[2016-07-16 20:11] LABS: EOSINOPHILS # 0.2 10^3/ul (0.0-0.5); LYMPHOCYTES # 0.7 10^3/ul (0.8-2.9); MONOCYTE # 0.5 10^3/ul (0.3-0.9); NEUTROPHIL # 7.6 10^3/ul (1.6-7.5)
[2016-07-16 20:13] LABS: OVALOCYTES FEW
[2016-07-16 20:14] LABS: POLYCHROMASIA OCCASIONAL
--- NOTE | 2016-07-16 20:20 | HP ---
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 1. Sepsis 2/2 SBP - will admit the patient to telemetry, continue with severe sepsis protocol - IVF, IV antibiotics, blood cultures, paracentesis culture, ID c/s 2. Anemia - chronic - ESLD induce/lupus - will transfuse PRBC's 3. Autoimmune hepatitis/cirrhosis - continue to hepatically dose medications, monitor for coagulopathy 4. Transaminitis with hyperbilirubinemia - 2/2 #3 5. Hypercalcemia - chronic - continue with IVF - check TSH/PTH 6. Hypothyroidism - check TSH, continue with synthroid 7. Lupus - monitor for flares 8. GI ppx - protonix IV 9. DVT ppx - hold 2/2 to active bleeding answered all of her questions. as per clinical course. 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 The patient states that the abdominal pain is diffuse in nature. she had a paracentesis completed on 07/12/2016. Since then she had worsening diffuse pain. Complains of elevated fevers, 102.6 F, shortness of breath, mild chest discomfort, headache, nausea with 2 episodes of NBNB vomitus. She came here to [facility] ER for further evaluation and treatment. Denies any loss of consciousness, sick contacts, urinary symptoms, or trauma. ED course: patient had a repeat paracentesis, IVF and IV antibiotics initiated. ROS 14 point review of systems completed, please refer to HPI for any positive findings PMH/Family/Social Past Medical History Lupus, autoimmune hepatitis, Recurrent anemia requiring multiple transfusions, carcinoid tumor s/p removal X 2 Medical History: hypothyroid Past Surgical History Exp lap to remove Carcinoid tumor, surgery ankle Past Surgical Hx: other Family History Significant Family History: other Social History Alcohol Use: none Smoking Status: Never smoker Drug Use: none Exam/Review of Systems Vital Signs Vitals Vital Signs Date Time Temp Pulse Resp B/P Pulse Ox O2 Delivery O2 Flow Rate FiO2 07/16/16 18:30 99.2 83 20 117/43 94 Nasal Cannula 3.0 Exam Exam Gen Gabrielle: mild to moderate distress 2/2 to abdominal pain, AAOx4, morbidly obese female HEENT: NC/AT, PERRLA, EOMI, no pharyngeal erythema, no tonsillar exudates, no lymphadenopathy, no JVD, no carotid bruits NECK: supple, no thyromegaly THORAX: symmetrical, no obvious deformities CV: S1S2, RRR, no M/G/R Lungs: CTAB no W/C/R/R Abd: soft, TTP diffusely/ND, +BS, no rebound, no guarding, neg HSM EXT: trace bilateral lower extremity edema, no ecchymosis, no clubbing, FROM Neuro: CN II-XII grossly intact, no focal deficits Psych: good mentation, alert and oriented, good mood and affect Skin: C/D/I Labs Result Diagram: 07/16/16 1640 07/16/16 1640 Medications Medications Current Medications Albumin Human (Albumin Human 25%) 50 ml @ 100 mls/hr ONCE ONCE IV ; Start at 20:00; Stop 07/16/16 at 20:[address] abd/pelvis IMPRESSION: 1. Hepatomegaly and cirrhosis are noted, with signs of portal hypertension including massive splenomegaly, moderate gastroesophageal varices, and small to mild amount of ascites. 2. Coronary arterial and aortoiliac atherosclerotic calcifications are present. 3. Cholelithiasis is seen without evidence for cholecystitis. 4. Fat and fluid containing periumbilical ventral hernia is noted, without incarceration. 5. Sigmoid diverticulosis is noted, without diverticulitis. 6. Small nonobstructive renal calculi are seen bilaterally, without ureterolithiasis or obstructive uropathy. 7. No mass, lymphadenopathy or abscess is identified. CXR IMPRESSION: Moderate Cardiomegaly. US guided paracentesis FINDINGS: Initial images demonstrate ascites. Approximately 2.6 liters of serous fluid was aspirated and sent for laboratory analysis. The patient tolerated the procedure well without complication. IMPRESSION: 1. Successful ultrasound-guided paracentesis. LORENA CARDONA MD Jul 16, 2016 20:19
[2016-07-16] MEDS ORDERED: ACETAMINOPHEN 650 MG SUPP PR PRN (20:30)
[2016-07-16] MEDS ORDERED: NACL 0.9% 3 ML SYG IV SCH (20:30)
[2016-07-16] MEDS ORDERED: LORAZEPAM 2 MG INJ IV PRN (20:30)
[2016-07-16] MEDS ORDERED: NITROGLYCERIN (SL) 0.4 MG TAB SL PRN (20:30)
[2016-07-16] MEDS ORDERED: VANCOMYCIN IV PER PHARMACY XX SCH (21:00)
[2016-07-16] MEDS ORDERED: CEFTRIAXONE 1 GM/50 ML (PMX) 50 ML IVPB SCH (22:00)
[2016-07-16] MEDS ORDERED: NORepinephrine 8MG/250 ML (PMX 250 ML IV STA (22:02)
--- NOTE | 2016-07-16 22:21 | RADRPT ---
PROCEDURE: XR Chest. CLINICAL INDICATION: Shortness of breath. TECHNIQUE: AP Portable chest. COMPARISON: Examination performed earlier the same day. FINDINGS: There is moderate to marked cardiomegaly. There are new perihilar opacities within the left upper c hest and right lower chest. The osseous structures are unremarkable. A right internal jugular centra l venous catheter is seen with tip in the superior vena cava. IMPRESSION: New mild perihilar opacities likely due to pulmonary edema or atelectasis. RPTAT: HIKT .Matthew Stevens MD, MD Date Time Electronically viewed and signed by .Matthew Stevens MD, MD on 07/16/2016 22:20 .T/
[2016-07-16] MEDS: CEFEPIME 1GM/50 ML (PMX) 50 ML IVPB SCH (22:37)
[2016-07-16 22:40] VITALS: TEMP 98.3
[2016-07-16 23:42] VITALS: Ht 170.2 cm; Wt 131.0 kg
[2016-07-16 23:45] VITALS: BP 112/57
[2016-07-17] VITALS (49 sets, daily range): BP systolic 97–161; BP diastolic 46–85; PULSE 66–81; RESP 15–30
[2016-07-17] MEDS ORDERED: VANCOMYCIN 2 GM in SOD CHLORIDE 0.9% 500 ML IVPB ONE ×2
[2016-07-17] MEDS: SOD CHLORIDE 0.9% 1,000 ML IV SCH ×3 (00:06→20:13)
[2016-07-17] MEDS: morphine 2 MG INJ IV PRN ×2 (00:51→19:53)
[2016-07-17 06:07] LABS: POTASSIUM 4.6 mmol/L (3.5-5.1)
[2016-07-17 06:09] LABS: CHOL/HDL RATIO 10.2 RATIO; MAGNESIUM 1.8 mg/dl (1.7-2.5)
[2016-07-17 06:10] LABS: CREATININE 0.93 mg/dl (0.44-1.00)
[2016-07-17 06:26] LABS: BASOPHILS % 0.4 % (0.0-2.0); EOSINOPHILS # 0.1 10^3/ul (0.0-0.5); EOSINOPHILS % 0.7 % (0.0-7.0); HEMATOCRIT 21.2 % (37.0-47.0); LYMPHOCYTES # 1.1 10^3/ul (0.8-2.9); LYMPHOCYTES % 12.4 % (15.0-51.0); MEAN CORPUSCULAR HEMOGLOBIN 20.9 pg (29.0-33.0); MEAN CORPUSCULAR HGB CONC 30.8 g/dl (32.0-37.0); MEAN CORPUSCULAR VOLUME 67.8 fl (82.0-101.0); MEAN PLATELET VOLUME 9.9 fl (7.4-10.4); MONOCYTE # 0.8 10^3/ul (0.3-0.9); MONOCYTES % 9.2 % (0.0-11.0); NEUTROPHIL # 6.7 10^3/ul (1.6-7.5); NEUTROPHILS % 77.3 % (39.0-77.0); PLATELET COUNT 130 10^3/UL (140-440); RED BLOOD COUNT 3.13 10^6/ul (4.20-5.40); RED CELL DISTRIBUTION WIDTH 19.6 % (11.5-14.5); UNCORRECTED WBC 8.7 10^3/ul (4.8-10.8); WHITE BLOOD COUNT 8.7 10^3/ul (4.8-10.8)
[2016-07-17 06:40] LABS: THYROID STIMULATING HORMONE 6.06 MIU/L (0.465-4.680)
[2016-07-17] MEDS: PANTOPRAZOLE 40 MG INJ IV SCH (06:47)
[2016-07-17 06:52] LABS: CONDITION 1; LH ANALYZER COMMENTS 1
[2016-07-17 06:55] LABS: HEMOGLOBIN 6.5 g/dl (12.0-16.0)
[2016-07-17] MEDS: LEVOTHYROXINE 125 MCG TAB PO SCH (08:20)
[2016-07-17] MEDS: LEVOTHYROXINE 150 MCG TAB PO SCH (08:20)
[2016-07-17] MEDS ORDERED: SOD CHLORIDE 0.9% 250 ML IV* ONE (09:26)
[2016-07-17] MEDS: CEFEPIME 1GM/50 ML (PMX) 50 ML IVPB SCH ×2 (10:52→21:23)
--- NOTE | 2016-07-17 11:01 | CONS ---
DATE OF ADMISSION: 07/16/2016 DATE OF CONSULTATION: 07/17/2016 TYPE OF CONSULTATION: Infectious Disease. REASON FOR CONSULTATION: Antibiotic management. HISTORY OF PRESENT ILLNESS: Kami Hollingsworth is a 41-year-old unfortunate female with numer ous problems who comes in with abdominal pain, worsening over the last 5 days. Her past problems i nclude: 1. Systemic lupus erythematosus (SLE). 2. Autoimmune hepatitis leading to cirrhosis. 3. Hypothyroidism. 4. Anemia of chronic disease. 5. Multiple blood transfusions. Acutely, she presents with abdominal pain, worsening over the last 5 days. It is diffuse in nature. She had a paracentesis completed on 07/12/2016 and had worsening diffuse pain. Her temperature wa s 102.6. She is short of breath. She had some mild chest pain, nausea with 2 episodes of nonbiliou s, nonbloody vomitus. She came to the emergency room. She had a repeat paracentesis. On admissio n, her white count was 10.6, H and H was 7.8 and 25.7, platelet count of 142,000. Today, her white count is 8.7, hemoglobin is still 6.5 lower and 21.2, platelet count 130,000. Her BUN and creatini ne are 18/0.93. Urine shows trace leukocyte esterase, 10 to 25 white cells per high-power field. H er ascites shows 4762 white cells, greenish yellow with 75% polys, 6 lymphs consistent with spontane ous bacterial peritonitis. Patient was started on vancomycin and cefepime. Her chest x-ray showed moderate cardiomegaly. ACT scan of the abdomen and pelvis showed hepatomegaly and cirrhosis with si gns of portal hypertension including massive splenomegaly, mild gastroesophageal varices and small t o mild amount of ascites. Coronary artery and aortoiliac atherosclerotic calcifications are present . Cholelithiasis without cholecystitis, fat and fluid containing periumbilical ventral hernia witho ut incarceration, diverticulosis, small nonobstructing renal calculi are present without ureterolith iasis or obstructive uropathy. A chest x-ray shows new mild perihilar opacities, either pulmonary e chelita or atelectasis. PAST MEDICAL HISTORY: Operations as outlined. FAMILY HISTORY: Noncontributory. SOCIAL HISTORY: She does not smoke, drink or abuse drugs. ALLERGIES: NONE TO PENICILLIN, SULFA OR FOODS. PAST SURGICAL HISTORY: She had an exploratory laparotomy to remove a carcinoid tumor and she had diaz rgery on her ankle. SOCIAL HISTORY: She does not smoke, drink or abuse drugs. ALLERGIES: NONE TO PENICILLIN, SULFA OR FOODS. MEDICATIONS: Per chart. REVIEW OF SYSTEMS: As per HPI. PHYSICAL EXAMINATION: GENERAL: The patient is a morbidly obese female who is alert, responsive, in no acute distress. VITAL SIGNS: Stable. She is afebrile. Her temperature is 99.2. SKIN: Without generalized rash. HEENT: Within normal limits. NECK: Supple. LYMPH NODES: None palpable. CHEST: Decreased breath sounds at the bases. HEART: Without murmur or gallop. ABDOMEN: Soft but diffusely tender to palpation. Bowel sounds are active, without hepatosplenomega ly or masses palpable. EXTREMITIES: Without cyanosis, clubbing, or edema. RECTAL AND GENITAL: Deferred. NEUROLOGIC: No focal neurological abnormality. IMPRESSION AND PLAN: The patient has spontaneous bacterial peritonitis. She is on vancomycin and c efepime. We will await the results. I will dictate my findings to the hospitalist. Dictated By: BHARTI MARTINEZ MD, JD/MARIO Conf#: [id number] DID#: [id number]
--- NOTE | 2016-07-17 11:15 | PN ---
DATE: 07/17/2016 SUBJECTIVE: The patient remains stable following admission to intensive care unit. She continues l ow dose vasopressors, pending transfusion of packed red blood cells. She is sitting up in chair, aw tari, alert, oriented without evidence of respiratory distress. PHYSICAL EXAMINATION: VITAL SIGNS: Temperature 98, pulse 71, blood pressure 115/55, O2 saturation 99% on 4 L nasal cannul a. NECK: Supple. No JVD or lymphadenopathy. CARDIAC: S1, S2, no added sounds or murmurs. CHEST: Diminished air entry bilaterally. ABDOMEN: Obese, soft, nontender. No guarding or rebound. EXTREMITIES: No cyanosis, clubbing, edema. NEUROLOGIC: Grossly intact. No focal deficits. LABORATORY DATA: White count 8.7, hemoglobin 6.5, platelets of 130, BUN 18, creatinine 0.93. INR 1 .18. Urinalysis was unremarkable. Ascitic fluid showed an elevated white cell count, predominantly neutrophils. IMPRESSION AND PLAN: 1. Autoimmune hepatitis with subsequent cirrhosis and recurrent ascites. 2. Likely bacterial peritonitis following recent paracentesis. 3. Anemia of chronic disease, but no evidence of active GI bleed at present following paracentesis. 4. Portal hypertension secondary to above. 5. Morbid obesity. 6. Septic shock, likely secondary to combination of bacterial peritonitis and hypovolemic shock fro m low hemoglobin RECOMMENDATIONS: 1. Continue broad-spectrum antibiotic coverage. 2. Transfusion of packed red blood cells. 3. Monitor hemoglobin and hematocrit. 4. DVT and GI prophylaxis. 5. Obtain all notes. 6. Ensure the patient has adequate followup. Currently, she states she has no primary care physici an and our rheumatologists are following her case. Dictated By: TERRI HICKMAN/MARIO Conf#: [id number] DID#: [id number]
[2016-07-17] MEDS: VANCOMYCIN 1.5 GM in SOD CHLORIDE 0.9% 250 ML IVPB SCH ×2 (12:16→23:13)
[2016-07-17] MEDS ORDERED: ACETAMINOPHEN 325 MG TAB PO PRN ×2 (18:00)
[2016-07-17 18:24] LABS: HEMATOCRIT 24.6 % (37.0-47.0); HEMOGLOBIN 7.4 g/dl (12.0-16.0)
[2016-07-17] MEDS: ONDANSETRON 4 MG INJ IV PRN (20:13)
[2016-07-18] MEDS ORDERED: traMADol 50 MG TAB PO PRN (01:00)
[2016-07-18] MEDS: LEVOTHYROXINE 125 MCG TAB PO SCH (06:11)
[2016-07-18] MEDS: LEVOTHYROXINE 150 MCG TAB PO SCH (06:11)
[2016-07-18] MEDS: PANTOPRAZOLE 40 MG INJ IV SCH (06:11)
[2016-07-18] MEDS: ONDANSETRON 4 MG INJ IV PRN ×2 (06:12→20:29)
[2016-07-18] MEDS: morphine 2 MG INJ IV PRN ×2 (06:22→20:28)
[2016-07-18 07:47] VITALS: BP 114/54; RESP 18
[2016-07-18] MEDS: CEFEPIME 1GM/50 ML (PMX) 50 ML IVPB SCH ×2 (09:42→20:28)
--- NOTE | 2016-07-18 11:24 | CONS ---
Date/Time of Note Date/Time of Note DATE: 07/18/16 TIME: 11:24 Assessment/Plan Assessment/Plan Chief Complaint/Hosp Course ID PROGRESS NOTE CURRENT ABX DAY #2 => Vanco IV + Cefepime 24H INTERVAL SUMMARY * Feeling better, OOB-Chair, no fevers, VSS, NAD * BCx 07/16/16 (+)GPC 1/2 bottles from ED = pending final ID * BLOOD CULTURE Preliminary BCULT GRAM BOTTLE 1 Gram positive cocci in clusters 1 of 2 bottles . seen on gram stain of the broth [place]: 07/16/16-1640 Rcvd: 07/16/16-1700 Source: CATHETER U Sp Descrip: Microbiology URINE CULTURE Final Organism 1 ENTEROCOCCUS SPECIES COLONY COUNT >100,000 CFU/ml ENT SPS M.I.C. RX --------- --- AMPICILLIN <=2 S CIPROFLOXACIN >=8 R LEVOFLOXACIN >=8 R NITROFURANTOIN <=16 S PENICILLIN-G 4 S VANCOMYCIN 1 S PHYSICAL EXAMINATION: GENERAL: 53 yo F A/A/O, obese, VSS, NAD SKIN: Without generalized rash HEENT: Unremarkable NECK: Full ROM CHEST: Decreased breath sounds at the bases. HEART: Pulse RRR ABDOMEN: Distended, hepatomegaly EXTREMITIES: Warm w/BLEXT edema ID ASSESSMENT 41 yo F w/PMHx obesity, lupus, autoimmune cirrhosis w/ascites/esophageal varices , portal HTN admit with: 1. Sepsis w/fevers >102.9, hypotension on admission, HR 99, 14% Bandemia due to #1 #2 * 07/16/16 BCx (+)1/2 bottles GPC ? true sepsis vs skin contaminant ? = pending final ID 2. Enterococcal UTI 3. Presumptive spontaneous bacterial peritonitis * s/p Para 07/12/16 w/progressive sxs of ABD/back pain, fevers * s/p Para 07/16/16 w/trans-exudative greenish-yellow fluid 4. 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 Hx of GIB 2n2 esophageal varices ABX ALLERGIES: KNDR CURRENT ABX: Vanco IV #2 + Cefepime #2 ID RECOMMENDATIONS 1. Continue current ABX = Vanco for Enterococcal coverage + Cefepime for PSAR coverage 2. Needs IV ABX for (+)BCx 1/ bottles GPC -> unless consistent with skin contaminant BLOOD CULTURE Preliminary BCULT GRAM BOTTLE 1 Gram positive cocci in clusters 1 of 2 bottles . seen on gram stain of the broth 2. When improves she can DC home on: * Amoxicillin 500mg po TID to complete 7 days for Enterococcal coverage * Cipro 750mg po BID to complete 7 days for SBP w/greenish fluid (suspicious for PSAR). . Problems: Consultation Date/Type/Reason Admit Date/Time Jul 16, 2016 at 19:32 Initial Consult Date Exam/Review of Systems Vital Signs Vitals Vital Signs Date Time Temp Pulse Resp B/P Pulse Ox O2 Delivery O2 Flow Rate FiO2 07/18/16 07:47 98.2 66 18 114/54 93 07/17/16 22:11 Nasal Cannula 2.0 Intake and Output 07/17/16 07/17/16 07/18/16 15:00 23:00 07:00 Intake Total 2319.993 ml 1235.007 ml 1975 ml Output Total 800 ml 400 ml 1150 ml Balance 1519.993 ml 835.007 ml 825 ml Results Result Diagram: 07/17/16 1815 07/17/16 0504 Results 24 hrs Laboratory Tests Test 07/17/16 18:15 Hematocrit 24.6 L Hemoglobin 7.4 L Medications Medications Current Medications Sodium Chloride (NS) 1,000 ml @ 75 mls/hr [id number] IV Last administered on 07/17 20:13; Admin Dose 75 MLS/HR; Start 07/16/16 at 20:30 Lorazepam (Ativan) 0.5 mg Q6H PRN IV ANXIETY; Start 07/16/16 at 20:30 Ondansetron HCl (Zofran Inj) 4 mg Q6H PRN IV NAUSEA AND/OR VOMITING Last administered on 07/18/16 06:12; Admin Dose 4 MG; Start 07/16/16 at 20:30 Nitroglycerin (Nitroglycerin (Sl Tab) 0.4 Mg) 1 tab Q5M PRN SL CHEST PAIN; Start 07/16/16 at 20:30 Morphine Sulfate (morphine) 2 mg Q4H PRN IV PAIN LEVEL 7-10 Last administered on 07/18/16 06:22; Admin Dose 2 MG; Start 07/16/16 at 20:30 Pantoprazole 40 mg 40 mg DAILY@06 IV Last administered on 07/18/16 06:11; Admin Dose 40 MG; Start 07/17/16 at 06:00 Cefepime HCl 50 ml @ 100 mls/hr Q12 IVPB Last administered on 07/18/16 09:42 ; Admin Dose 100 MLS/HR; Start 07/16/16 at 21:00 Vancomycin HCl/ Sodium Chloride (Vancocin/NS) 250 ml @ 83.333 mls/ hr Q12H IVPB Last administered on 07/17/16 23:13; Admin Dose 83.333 MLS/HR; Start at 12:00 Levothyroxine Sodium (Synthroid) 150 mcg DAILY@06 PO Last administered on 06:11; Admin Dose 150 MCG; Start 07/17/16 at 06:00 Levothyroxine Sodium (Synthroid) 125 mcg DAILY@06 PO Last administered on 06:11; Admin Dose 125 MCG; Start 07/17/16 at 06:00 Acetaminophen (Tylenol Tab) 650 mg Q6H PRN PO PAIN AND OR ELEVATED TEMP Last administered on 07/18/16 00:34; Admin Dose 650 MG; Start 07/17/16 at 18:00 Tramadol HCl (Ultram) 50 mg Q6H PRN PO MODERATE PAIN LEVEL 4-6 Last administered on 07/18/16 03:16; Admin Dose 50 MG; Start 07/18/16 at 01:00 SADAF NUNEZ NP Jul 18, 2016 11:24
[2016-07-18 11:52] LABS: BASOPHILS % 0.1 % (0.0-2.0); EOSINOPHILS # 0.1 10^3/ul (0.0-0.5); HEMATOCRIT 27.8 % (37.0-47.0); HEMOGLOBIN 8.4 g/dl (12.0-16.0); LYMPHOCYTES # 0.4 10^3/ul (0.8-2.9); LYMPHOCYTES % 8.4 % (15.0-51.0); MEAN CORPUSCULAR HEMOGLOBIN 21.5 pg (29.0-33.0); MEAN CORPUSCULAR HGB CONC 30.2 g/dl (32.0-37.0); MEAN CORPUSCULAR VOLUME 71.1 fl (82.0-101.0); MEAN PLATELET VOLUME 9.6 fl (7.4-10.4); MONOCYTE # 0.7 10^3/ul (0.3-0.9); MONOCYTES % 12.7 % (0.0-11.0); NEUTROPHILS % 76.8 % (39.0-77.0); PLATELET COUNT 121 10^3/UL (140-440); POTASSIUM 4.6 mmol/L (3.5-5.1); RED BLOOD COUNT 3.91 10^6/ul (4.20-5.40); RED CELL DISTRIBUTION WIDTH 21.1 % (11.5-14.5); UNCORRECTED WBC 5.2 10^3/ul (4.8-10.8); WHITE BLOOD COUNT 5.2 10^3/ul (4.8-10.8)
[2016-07-18 11:54] LABS: CONDITION 1; LH ANALYZER COMMENTS 1
[2016-07-18 11:55] LABS: CREATININE 0.69 mg/dl (0.44-1.00); PHOSPHORUS 2.7 mg/dl (2.5-4.9)
[2016-07-18 11:56] LABS: CALCIUM 9.9 mg/dl (8.4-10.2); MAGNESIUM 2.2 mg/dl (1.7-2.5)
[2016-07-18] MEDS ORDERED: PROCHLORPERAZINE 10 MG INJ IV PRN (12:00)
[2016-07-18 12:11] LABS: IRON 361 ug/dl (35-150)
[2016-07-18 12:21] LABS: TOTAL IRON BINDING CAPACITY 454 ug/dl (241-421)
[2016-07-18] MEDS: LACTULOSE 30ML CUP PO SCH ×2 (13:32→22:38)
[2016-07-18] MEDS: VANCOMYCIN 1.5 GM in SOD CHLORIDE 0.9% 250 ML IVPB SCH (13:32)
[2016-07-18] MEDS: PROPRANOLOL 20 MG TAB PO SCH ×2 (13:59→22:40)
--- NOTE | 2016-07-18 14:31 | PN ---
DATE: 07/18/2016 SUBJECTIVE DATA: Complains of headache. Had a few episodes of vomiting today. OBJECTIVE DATA: VITAL SIGNS: Temperature 98.2, pulse rate 66, respiratory rate 18, blood pressure 114/54, oxygen saturation 93% on room air. GENERAL: This is a morbidly obese 41-year-old female lying in bed in no apparent distress. HEENT: Cushingoid features. Normocephalic and atraumatic. Eyes: Anicteric sclerae. Conjunctivae clear. ENT: Nasal septum is midline. Oral mucosa is moist. NECK: Short and obese. RESPIRATORY: Bilaterally diminished breath sounds. No use of accessory muscles of respiration. No adventitious breath sounds. CARDIAC: S1, S2, heard. Grade II/ systolic ejection murmur. ABDOMEN: Soft and nontender. Ascites. Bowel sounds positive in all 4 quadrants. GENITOURINARY: Deferred. EXTREMITIES: No cyanosis, no clubbing. Bilateral lower extremity 2+ pitting edema. Peripheral pulses palpable. NEUROLOGIC: Cranial nerves II through XII grossly intact. The patient is awake , alert and oriented. SKIN: Normal skin turgor. No skin rashes. LABORATORY AND DIAGNOSTIC DATA: WBC 5.3, hemoglobin 8.4, hematocrit 27.8, platelet count 121. Sodium 145, potassium 4.6, chloride 106, carbon dioxide 27 , anion gap 17, BUN 90, creatinine 0.69, glucose 122, calcium 9.9, phosphorus 2.7, magnesium 2.2. ASSESSMENT AND PLAN: 1. Sepsis secondary to underlying urinary tract infection. Possible spontaneous bacterial peritonitis as per the fluid analysis. WBC on ascitic fluid is 4762. 2. Microcytic, hypochromic anemia. Status post 4 units of PRBC transfusion. Stool for occult blood pending. The patient also has a history of iron deficiency. Will obtain an iron panel. If there is evidence of iron deficiency , the patient will be started on iron supplements. 3. Autoimmune hepatitis with liver cirrhosis. The patient will be started on rifaximin, Lactulose and diuretics. 4. Hypothyroidism with myxedema. Continue Synthroid. 5. History of systemic lupus erythematosus. Outpatient followup with rheumatology. 6. Thrombocytopenia, most probably secondary to underlying liver cirrhosis. We will monitor the platelet count closely. We will monitor the patient for any bleeding. 7. Fluid, electrolytes and nutrition. Continue low cholesterol diet. 8. DVT prophylaxis with bilateral sequential compression devices. 9. Gastrointestinal prophylaxis. Proton pump inhibitors. DISPOSITION/PLAN: Continue current management, add Lactulose, rifaximin, propranolol and Lasix to the patient's drug regimen.The patient is unstable for discharge home.Continue antibiotics as per infectious diseases. Case discussed with Dr. Garcia. DILLAN GARCIA MD, AM/MARIO Conf#: [id number] DID#: [id number] MTDD
[2016-07-18] MEDS: FUROSEMIDE 20 MG INJ IV SCH (17:30)
[2016-07-18 20:26] VITALS: BP 106/50; RESP 16
[2016-07-18] MEDS: RIFAXIMIN 550 MG TAB PO SCH (22:38)
[2016-07-19] MEDS: VANCOMYCIN 1.5 GM in SOD CHLORIDE 0.9% 250 ML IVPB SCH ×2 (00:36→12:30)
[2016-07-19] MEDS: ONDANSETRON 4 MG INJ IV PRN (02:04)
[2016-07-19] MEDS: morphine 2 MG INJ IV PRN (02:04)
[2016-07-19] MEDS: LACTULOSE 30ML CUP PO SCH ×2 (05:46→14:00)
[2016-07-19] MEDS: LEVOTHYROXINE 125 MCG TAB PO SCH (05:46)
[2016-07-19] MEDS: LEVOTHYROXINE 150 MCG TAB PO SCH (05:46)
[2016-07-19] MEDS: FUROSEMIDE 20 MG INJ IV SCH (05:48)
[2016-07-19] MEDS ORDERED: PANTOPRAZOLE (EC) 40 MG TAB PO SCH (06:00)
[2016-07-19 06:03] LABS: ALBUMIN 3.7 g/dl (3.3-4.9)
[2016-07-19 06:04] LABS: POTASSIUM 4.7 mmol/L (3.5-5.1)
[2016-07-19 06:06] LABS: CREATININE 0.94 mg/dl (0.44-1.00)
[2016-07-19 06:07] LABS: ALBUMIN/GLOBULIN RATIO 0.82; BILIRUBIN,DIRECT 0.2 mg/dl (0.00-0.20); BILIRUBIN,INDIRECT 2.9 mg/dl (0-1.1); BILIRUBIN,TOTAL 3.1 mg/dl (0.2-1.3); CALCIUM 9.8 mg/dl (8.4-10.2); TOTAL PROTEIN 8.2 g/dl (6.1-8.1)
[2016-07-19 06:45] LABS: BASOPHILS % 0.2 % (0.0-2.0); EOSINOPHILS # 0.1 10^3/ul (0.0-0.5); EOSINOPHILS % 1.7 % (0.0-7.0); HEMATOCRIT 24.5 % (37.0-47.0); HEMOGLOBIN 7.6 g/dl (12.0-16.0); LYMPHOCYTES # 0.5 10^3/ul (0.8-2.9); LYMPHOCYTES % 8.3 % (15.0-51.0); MEAN CORPUSCULAR HEMOGLOBIN 21.6 pg (29.0-33.0); MEAN CORPUSCULAR HGB CONC 30.9 g/dl (32.0-37.0); MEAN CORPUSCULAR VOLUME 70.1 fl (82.0-101.0); MEAN PLATELET VOLUME 10.4 fl (7.4-10.4); MONOCYTE # 0.9 10^3/ul (0.3-0.9); MONOCYTES % 13.2 % (0.0-11.0); NEUTROPHILS % 76.6 % (39.0-77.0); PLATELET COUNT 118 10^3/UL (140-440); RED BLOOD COUNT 3.49 10^6/ul (4.20-5.40); RED CELL DISTRIBUTION WIDTH 20.8 % (11.5-14.5); UNCORRECTED WBC 6.5 10^3/ul (4.8-10.8); WHITE BLOOD COUNT 6.5 10^3/ul (4.8-10.8)
[2016-07-19 06:55] LABS: CONDITION 1; LH ANALYZER COMMENTS 1; NUCLEATED RED BLOOD CELLS # 0.1 10^3/ul (0.0-0.0); SUSPECT 1
[2016-07-19 07:45] VITALS: BP 94/44; RESP 18
[2016-07-19 08:07] LABS: INR 1.2; PROTIME 15.3 Sec (12.2-14.2); PT RATIO 1.2
[2016-07-19 08:08] LABS: PARTIAL THROMBOPLASTIN TIME 34.7 Sec (25.0-35.0)
[2016-07-19] MEDS: PROPRANOLOL 20 MG TAB PO SCH ×2 (09:00→13:00)
[2016-07-19] MEDS: RIFAXIMIN 550 MG TAB PO SCH (09:54)
[2016-07-19] MEDS: CEFEPIME 1GM/50 ML (PMX) 50 ML IVPB SCH (09:54)
--- NOTE | 2016-07-19 15:54 | PDOCDIS ---
Discharge Instructions CONDITION Patient Condition: Good HOME CARE INSTRUCTIONS: Diet Instructions: Modified Fat ACTIVITY: Activity Restrictions: No Restrictions FOLLOW UP/APPOINTMENTS Appointments F/U WITH YOUR PCP IN 1-2 WEEKS JERRI HARRIS Jul 19, 2016 15:54
[2016-07-19] MEDS ORDERED: CIPR750T3 PO (15:56)
[2016-07-19] MEDS ORDERED: AMO500 PO (15:56)
--- NOTE | 2016-07-19 16:34 | CONS ---
Date/Time of Note Date/Time of Note DATE: 07/19/16 TIME: 16:30 Assessment/Plan Assessment/Plan Chief Complaint/Hosp Course ID PROGRESS NOTE CURRENT ABX DAY #3 => Vanco IV + Cefepime 24H INTERVAL SUMMARY * DC planning in process -- Today is the first day she looks well to me, yesterday slept all day felt ill now Feeling better, OOB-Chair, no fevers, VSS, NAD * BCx 07/16/16 (+)GPC 1/2 bottles from ED =CoNS = skin contaminant likely * Thora micro (-); nevertheless (+)purulent trans-exudative greenish fluid drained concern for PSAR peritonitis [place]: 07/16/16-1640 Rcvd: 07/16/16-1700 Source: CATHETER U Sp Descrip: Microbiology URINE CULTURE Final Organism 1 ENTEROCOCCUS SPECIES COLONY COUNT >100,000 CFU/ml ENT SPS M.I.C. RX --------- --- AMPICILLIN <=2 S CIPROFLOXACIN >=8 R LEVOFLOXACIN >=8 R NITROFURANTOIN <=16 S PENICILLIN-G 4 S VANCOMYCIN 1 S PHYSICAL EXAMINATION: GENERAL: 53 yo F A/A/O, obese, VSS, NAD SKIN: Without generalized rash HEENT: Unremarkable NECK: Full ROM CHEST: Decreased breath sounds at the bases. HEART: Pulse RRR ABDOMEN: Distended, hepatomegaly EXTREMITIES: Warm w/BLEXT edema ID ASSESSMENT 41 yo F w/PMHx obesity, lupus, autoimmune cirrhosis w/ascites/esophageal varices , portal HTN admit with: 1. Sepsis w/fevers >102.9, hypotension on admission, HR 99, 14% Bandemia due to #1 #2 * 07/16/16 BCx (+)1/2 bottles GPC ? true sepsis vs skin contaminant ? = pending final ID 2. Enterococcal UTI 3. Presumptive spontaneous bacterial peritonitis * s/p Para 07/12/16 w/progressive sxs of ABD/back pain, fevers * s/p Para 07/16/16 w/trans-exudative greenish-yellow fluid 4. 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 Hx of GIB 2n2 esophageal varices ABX ALLERGIES: KNDR CURRENT ABX: Vanco IV #2 + Cefepime #2 ID RECOMMENDATIONS 1. Continue current ABX = Vanco for Enterococcal coverage + Cefepime for PSAR coverage 2. DC IV ABX -> BCx consistent with skin contaminant MAY DC HOME TODAY ON: * Amoxicillin 500mg po TID to complete 7 days for Enterococcal coverage * Cipro 750mg po BID to complete 7 days for SBP w/greenish fluid (suspicious for PSAR). * . . Problems: Consultation Date/Type/Reason Admit Date/Time Jul 16, 2016 at 19:32 Exam/Review of Systems Vital Signs Vitals Vital Signs Date Time Temp Pulse Resp B/P Pulse Ox O2 Delivery O2 Flow Rate FiO2 07/19/16 08:00 Nasal Cannula 2.0 07/19/16 07:45 98.0 64 18 94/44 95 Intake and Output 07/18/16 07/18/16 07/19/16 15:00 23:00 07:00 Intake Total 50 ml 300 ml 650 ml Output Total 700 ml 450 ml Balance 50 ml -400 ml 200 ml Results Result Diagram: 07/19/16 0455 07/19/16 0455 Results 24 hrs Laboratory Tests Test 07/19/16 04:55 07/19/16 06:39 07/19/16 11:28 Alanine Aminotransferase (ALT/SGPT) 32 Albumin 3.7 Albumin/Globulin Ratio 0.82 Alkaline Phosphatase 127 H Ammonia 77 H Anion Gap 16 Aspartate Amino Transf (AST/SGOT) 60 H Basophils # 0.0 Basophils % 0.2 Blood Morphology Comment Blood Urea Nitrogen 28 H Calcium Level 9.8 Carbon Dioxide Level 27 Chloride Level 106 Creatinine 0.94 Direct Bilirubin 0.20 Eosinophils # 0.1 Eosinophils % 1.7 Free Thyroxine 1.14 Globulin 4.50 H Glucose Level 109 Hematocrit 24.5 L Hemoglobin 7.6 L Indirect Bilirubin 2.9 H Lymphocytes # 0.5 L Lymphocytes % 8.3 L Mean Corpuscular Hemoglobin 21.6 L Mean Corpuscular Hemoglobin Concent 30.9 L Mean Corpuscular Volume 70.1 L Mean Platelet Volume 10.4 Monocytes # 0.9 Monocytes % 13.2 H Neutrophils # 5.0 Neutrophils % 76.6 Nucleated Red Blood Cells # 0.1 H Nucleated Red Blood Cells % 2.0 H Platelet Count 118 L Potassium Level 4.7 Red Blood Count 3.49 L Red Cell Distribution Width 20.8 H Sodium Level 144 Thyroid Stimulating Hormone (TSH) 4.640 Total Bilirubin 3.1 H Total Protein 8.2 H White Blood Count 6.5 # Activated Partial Thromboplast Time 34.7 INR International Normalized Ratio 1.20 Prothrombin Time 15.3 H Prothrombin Time Ratio 1.2 Stool Occult Blood NEGATIVE Medications Medications Current Medications Lorazepam (Ativan) 0.5 mg Q6H PRN IV ANXIETY; Start 07/16/16 at 20:30 Ondansetron HCl (Zofran Inj) 4 mg Q6H PRN IV NAUSEA AND/OR VOMITING Last administered on 07/19/16 02:04; Admin Dose 4 MG; Start 07/16/16 at 20:30 Nitroglycerin (Nitroglycerin (Sl Tab) 0.4 Mg) 1 tab Q5M PRN SL CHEST PAIN; Start 07/16/16 at 20:30 Morphine Sulfate 2 mg 2 mg Q4H PRN IV PAIN LEVEL 7-10 Last administered on 07/19 02:04; Admin Dose 2 MG; Start 07/16/16 at 20:30 Cefepime HCl 50 ml @ 100 mls/hr Q12 IVPB Last administered on 07/19/16 09:54 ; Admin Dose 100 MLS/HR; Start 07/16/16 at 21:00 Vancomycin HCl/ Sodium Chloride (Vancocin/NS) 250 ml @ 83.333 mls/ hr Q12H IVPB Last administered on 07/19/16 12:30; Admin Dose 83.333 MLS/HR; Start at 12:00 Levothyroxine Sodium (Synthroid) 150 mcg DAILY@06 PO Last administered on 05:46; Admin Dose 150 MCG; Start 07/17/16 at 06:00 Levothyroxine Sodium (Synthroid) 125 mcg DAILY@06 PO Last administered on 05:46; Admin Dose 125 MCG; Start 07/17/16 at 06:00 Acetaminophen (Tylenol Tab) 650 mg Q6H PRN PO PAIN AND OR ELEVATED TEMP Last administered on 07/18/16 00:34; Admin Dose 650 MG; Start 07/17/16 at 18:00 Tramadol HCl (Ultram) 50 mg Q6H PRN PO MODERATE PAIN LEVEL 4-6 Last administered on 07/18/16 03:16; Admin Dose 50 MG; Start 07/18/16 at 01:00 Rifaximin (Xifaxan) 550 mg BID PO Last administered on 07/19/16 09:54; Admin Dose 550 MG; Start 07/18/16 at 21:00 Lactulose (Enulose) 20 gm Q8 PO Last administered on 07/19/16 14:00; Admin Dose 20 GM; Start 07/18/16 at 14:00 Propranolol HCl (Inderal) 20 mg TID PO Last administered on 07/18/16 22:40; Admin Dose 20 MG; Start 07/18/16 at 13:00 Prochlorperazine (Compazine Inj) 5 mg Q4H PRN IV NAUSEA AND/OR VOMITING; Start 07/18/16 at 12:00 Pantoprazole (Protonix Tab) 40 mg DAILY@06 PO Last administered on 07/19/16 05 :47; Admin Dose 40 MG; Start 07/19/16 at 06:00 SADAF NUNEZ NP Jul 19, 2016 16:34
--- NOTE | 2016-07-20 09:32 | DS ---
DATE OF ADMISSION: 07/16/2016 DATE OF DISCHARGE: 07/19/2016 DISCHARGE DIAGNOSES: 1. Sepsis secondary to a UTI and possible SBP, discharge with p.o. antibiotics. The patient is sta tus post IV antibiotics in house. Urine culture did show enterococcus species. 2. Autoimmune hepatitis with liver cirrhosis. Continue patient's home lactulose, diuretics and rif aximin. 3. 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 4. Thrombocytopenia secondary to liver disease, stable. 5. History of SLE outpatient followup dermatology. 6. Hypothyroidism. Continue home Synthroid. HOSPITAL COURSE: The patient is a 41-year-old female with a history of lupus, autoimmune hepatitis leading to cirrhosis, hypothyroidism and anemia. The patient presented with abdominal pain. The ritchie stanley was admitted with sepsis, felt to be secondary to SBP as well as a UTI. The patient's urine c ultures grew back enterococcus species. The patient did have coagulase-negative staph in the blood within 1 of the blood cultures. Patient did have a paracentesis and the fluid was greenish in appea annabel with a high WBC count. Of note, cultures of the ascitic fluid was negative. It was still fel t that patient likely had SBP. The patient's sepsis did improve and was felt to be stable for disch arge. On the day of discharge, the patient's vitals, labs, physical exam were felt to be stable. H er main complaints improved and she had no acute complaints and questions were answered. CONDITION ON DISCHARGE: Stable. DISPOSITION: To home. MEDICATIONS: The patient is to continue her usual home medications. She was also given a prescript ion for amoxicillin 500 mg p.o. q. 8 hours for 7 days and Cipro 750 mg p.o. b.i.d. for 7 days. FOLLOWUP: The patient is to follow up with PCP in 1 to 2 weeks. Greater than 30 minutes was spent coordinating discharge of patient. Dictated By: JERRI BARRY/MARIO Conf#: [id number] DID#: [id number]
== END 2016-07-19 17:55 | disposition home or self-care (01) | DRG 871 ==
LOC: E/R 15:57 → ICU 19:32 → MS2 07-17 18:50
PROVIDERS: ADMIT Student in an Organized Health Care Education/Training Program; ATTEND Student in an Organized Health Care Education/Training Program
PROC: 05HM33Z Insertion of Infusion Device into Right Internal Jugular Vein, Percutaneous Approach (ICD-10-PCS; principal; 2016-07-16)
PROC: 0W9G3ZX Drainage of Peritoneal Cavity, Percutaneous Approach, Diagnostic (ICD-10-PCS; 2016-07-16)
PROC: B543ZZA Ultrasonography of Right Jugular Veins, Guidance (ICD-10-PCS; 2016-07-16)
PROC: 30233N1 Transfusion of Nonautologous Red Blood Cells into Peripheral Vein, Percutaneous Approach (ICD-10-PCS; 2016-07-17)
DX: A41.9 Sepsis, unspecified organism (principal); K65.2 Spontaneous bacterial peritonitis; R65.21 Severe sepsis with septic shock; I85.00 Esophageal varices without bleeding; R18.8 Other ascites; D69.59 Other secondary thrombocytopenia; K76.6 Portal hypertension; N39.0 Urinary tract infection, site not specified; Z68.42 Body mass index [BMI] 45.0-49.9, adult; K74.69 Other cirrhosis of liver; M32.9 Systemic lupus erythematosus, unspecified; B95.2 Enterococcus as the cause of diseases classified elsewhere; K75.4 Autoimmune hepatitis; E03.9 Hypothyroidism, unspecified; D50.9 Iron deficiency anemia, unspecified; R16.1 Splenomegaly, not elsewhere classified; E80.6 Other disorders of bilirubin metabolism; E83.52 Hypercalcemia; E66.01 Morbid (severe) obesity due to excess calories; I86.4 Gastric varices; D63.8 Anemia in other chronic diseases classified elsewhere
CPT/HCPCS: 36415; 36430; 71010; 74176; 76937; 80048; 80053; 80061; 80202; 81001; 81003; 82140; 82270; 82728; 83036; 83540; 83605; 83735; 84100; 84439; 84443; 84484; 85014; 85018; 85025; 85610; 85730; 86850; 86870; 86900; 86901; 86920; 87040; 87070; 87075; 87081; 87086; 87102; 87116; 89050; 93005; 96374; 96375; J1940; C9113; J0692; J0698; J2270; J2405; J3370; J7030; J7040; J7050; P9016; P9047

== ENCOUNTER 2016-07-22 15:53 | Outpatient (CLI) | payer OTHER ==
[~2016-07-22] VITALS: Ht 170.2 cm; Wt 131.8 kg
[~2016-07-22 15:53] MED LIST changes: +AMO500 PO; +CIPR750T3 PO
[2016-07-22 16:03] VITALS: Ht 170.2 cm; Wt 131.8 kg
[2016-07-22 16:04] VITALS: BP 150/74; PULSE 71; RESP 18
--- NOTE | 2016-07-22 16:23 | PN ---
Date/Time of Note Date/Time of Note DATE: 07/22/16 TIME: 15:53 Outpatient Progress Note Chief Complaint Abdominal pain/anemia/cirrhosis/gallstones/hypercalcemia hypothyroidism/lupus HPI Abdominal pain/patient was recently admitted with abdominal pain, patient abdominal pain much improved, no fever or chill, patient still has abdominal distention, patient morbidly obese, Anemia/no hematemesis melena, still feels weakness and tiredness, Cirrhosis/patient has cirrhosis of liver, no jaundice, no fever or chill, no itching, Gallstone/no nausea vomiting, no pruritus, no jaundice, no fever or chill, Hypercalcemia/no leg cramps, no confusion, Hypothyroidism/no puffiness of eyes,, no constipation, on medication, patient morbidly obese, Lupus/history of lupus, slight joint discomfort, no rash, Review of Systems Const: No Fever, no chills, no Wt. loss, no Fatigue, normal appetite, no diaphoresis. Eyes: No pain, no discharge, no redness, no visual change, no foreign body. ENT: No pain, no bleeding, no congestion, no sore throat, no dysphagia, no discharge or rhinitis. Lymph: No adenopathy, no tender nodes, no lymphedema. Resp: No SOB, no cough, no sputum, no wheezing, no chest pain. CV: No chest pain, no palpitaions, no GUILLEN, no PND, no edema. GI: Normal appetite, abdominal pain morbidly obese,, no nausea, no vomiting, no diarrhea, no blood, no constipation. : No frequency, no urgency, no dysuria, no hematuria, no flank pain, no discharge, no bleeding. Musc: No bone/joint pain, no back pain, no neck pain, no knee pain, no restricted ROM. Skin: No rash, no skin lesions, no erythema, no laceration, no bruising, no pruritus. Neuro: No GR, no dizziness, no syncope, no seizure, no focal-weakness. Endo: No polyuria, no polydypsia, no dry-skin, no temp-intolerance. Psych: No hallucinations, no depression, no anxiety, no suicidal ideation. Ext: No edema, no pain, no ulcer, no weakness. Physical Exam General Appearance: A A 41 year-old female who appears well-developed, well- nourished, in no acute distress. HEENT: Head normocephalic, atraumatic. Pupils equal, round, reactive to light and accommodate. Sclerae are no jaundice. Nasal turbinates pink without erythema or nasal discharge. Mucous membranes pink and moist without lesions. Oropharynx clear without any exudate or discharge. NECK: Supple. Trachea midline, No thyromegaly, No cervical lymphadenopathy, No mass, No carotid bruits, No JVD, Carotid pulses 2+ bilaterally. PULMONARY: Clear to auscultaion bilaterally, No retractions, Chest expansion symmetric bilaterally, no rales, no ronchi, no dulness on percussion. CARDIAC: Normal SI and S2, Regular rate and rythm, no murmur, gallop, or rub. GASTROINTESTINAL: Abdomen is soft, very minimal abdominal discomfort,, Non Rigid , No distention, Positive bowel sounds x4 quadrants, Liver normal. SKIN: Warm, dry, no rash, no bruise, no echmosis. EXTREMITIES: Bilateral lower extremities normal, no edema, no phlabitus, pulse palpable, no contracture. MUSCULOSKELETAL: Spine Normal, Non-tender, Normal range of motion, No swelling, no deformity, no clubbing, or cyanosis, the patient has no edema to bilateral lower extremities, dorsalis pedis pulses palpable bilaterally. NEUROLOGIC: The patient is awake, alert, oriented, responding to yes/no questions appropriately, moving all extremities, cranial nerve intact, normal strenght, normal power, normal coordination, normal gait. 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,/ankle surgery Social Hx No smoking or drinking no drugs, Family Hx Noncontributory, Patient History: Cardiac disorder 33 FATHER, Onset:50's - 60 GRANDMOTHER PATERNAL GRANDFATHER MATERNAL Confusion GRANDMOTHER PATERNAL Endocrine and metabolic disease 33 FATHER 32 MOTHER G8 SIBLING, Onset:30's - 40 Assessment/Plan Impression Abdominal discomfort improving/anemia/cirrhosis/gallstones/hypercalcemia/ hypothyroidism/lupus/cardiomegaly/sigmoid diverticulosis/small nonobstructive renal calculi bilateral without ureterolithiasis, no obstructive uropathy,/ coronary artery calcification, Plan Continue all medication, patient has medication, patient abdominal pain slightly better, patient feels slightly sometime neck discomfort, at the site of IV, no tenderness, will monitor closely, discussed with the patient, Patient advised to lose significant weight, patient advised to increase activity , reduce calorie, Patient advised to follow with the primary care physician, encouraged to follow regularly, CBC CMP and amylase and lipase, and slight patient advised to follow with housekeeping assistant for lupus, and autoimmune disease, as a cardiomegaly, patient advised to follow with the cardiology, I will check if the lipid panel was done in the hospital, patient because of coronary calcification she should be on Lipitor, and aspirin, discussed with the patient, to follow with the cardiology, Medications Home Meds Active Scripts Ciprofloxacin Hcl* (Ciprofloxacin Hcl*) 750 Mg Tablet, 750 MG PO BID for 7 Days , TAB Prov:JERRI HARRIS 07/19/16 Amoxicillin* (Amoxicillin*) 500 Mg Cap, 500 MG PO Q8 for 7 Days, CAP Prov:JERRI HARRIS 07/19/16 Propranolol Hcl* (Propranolol Hcl*) 10 Mg Tablet, 10 MG PO TID for 30 Days, TAB Prov:DILLAN JOHNSON NP 04/10/16 Furosemide* (Furosemide*) 20 Mg Tablet, 20 MG PO BID for 30 Days, #30 TAB Prov:DILLAN JOHNSON NP 04/10/16 Pantoprazole* (Protonix*) 40 Mg Tablet.dr, 40 MG PO BID for 30 Days, TAB Prov:DILLAN JOHNSON NP 04/10/16 Levothyroxine Sodium* (Synthroid*) 200 Mcg Tablet, 275 MCG PO BEFORE BREAKFAST, #30 TAB Prov:DILLAN JOHNSON NP 04/10/16 Lactulose* (Cephulac*) 20 Gm/30 Ml Soln, 20 GM PO Q8 for 30 Days Prov:DILLAN JOHNSON NP 04/10/16 FAVIAN WINTER MD Jul 22, 2016 16:03
== END 2016-07-22 16:47 | disposition home or self-care (01) ==
LOC: DCC 15:53
PROVIDERS: ATTEND Internal Medicine
DX: R10.9 Unspecified abdominal pain (principal); D64.9 Anemia, unspecified; K74.60 Unspecified cirrhosis of liver; K80.80 Other cholelithiasis without obstruction; E83.52 Hypercalcemia; E03.9 Hypothyroidism, unspecified; M32.9 Systemic lupus erythematosus, unspecified; I51.7 Cardiomegaly; K57.30 Diverticulosis of large intestine without perforation or abscess without bleeding; N20.0 Calculus of kidney; I25.10 Atherosclerotic heart disease of native coronary artery without angina pectoris
CPT/HCPCS: G0463

== ENCOUNTER 2016-10-07 13:20 | Inpatient (IN) | payer OTHER ==
[~2016-10-07] VITALS: Ht 170.2 cm; Wt 127.3 kg
[~2016-10-07 13:20] MED LIST changes: +SYN2 PO; -[UNRECOGNIZED DRUG - CODE] PO
[2016-10-07] MEDS ORDERED: PROP10TA6 PO (15:00)
[2016-10-07] MEDS ORDERED: FER325 PO (15:02)
[2016-10-07 15:33] LABS: ADD SCAN DIFF NO
[2016-10-07 15:34] LABS: ABNORMAL IP MESSAGE 1; BASOPHILS % 0.3 % (0.0-2.0); EOSINOPHILS # 0.1 10^3/ul (0.0-0.5); EOSINOPHILS % 3.8 % (0.0-7.0); HEMATOCRIT 27.8 % (37.0-47.0); HEMOGLOBIN 7.4 g/dl (12.0-16.0); LYMPHOCYTES # 0.7 10^3/ul (0.8-2.9); LYMPHOCYTES % 23.1 % (15.0-51.0); MEAN CORPUSCULAR HEMOGLOBIN 20.2 pg (29.0-33.0); MEAN CORPUSCULAR HGB CONC 26.6 g/dl (32.0-37.0); MEAN CORPUSCULAR VOLUME 75.7 fl (82.0-101.0); MEAN PLATELET VOLUME 10.4 fl (7.4-10.4); MONOCYTE # 0.4 10^3/ul (0.3-0.9); MONOCYTES % 11.2 % (0.0-11.0); NEUTROPHIL # 1.9 10^3/ul (1.6-7.5); NEUTROPHILS % 60.6 % (39.0-77.0); PLATELET COUNT 137 10^3/UL (140-415); RED BLOOD COUNT 3.67 10^6/ul (4.20-5.40); RED CELL DISTRIBUTION WIDTH 17.1 % (11.5-14.5); WHITE BLOOD COUNT 3.1 10^3/ul (4.8-10.8)
[2016-10-07 15:44] LABS: INR 1.15; PROTIME 14.7 Sec (12.2-14.2); PT RATIO 1.1
[2016-10-07 15:45] LABS: PARTIAL THROMBOPLASTIN TIME 34.3 Sec (25.0-35.0)
[2016-10-07 15:46] LABS: ALBUMIN 4.3 g/dl (3.3-4.9); ALBUMIN/GLOBULIN RATIO 0.95; BILIRUBIN,INDIRECT 0.9 mg/dl (0-1.1); BILIRUBIN,TOTAL 0.9 mg/dl (0.2-1.3); CALCIUM 10.1 mg/dl (8.4-10.2); CREATININE 0.66 mg/dl (0.44-1.00); TOTAL PROTEIN 8.8 g/dl (6.1-8.1)
[2016-10-07 15:58] LABS: ADD UMIC NO; URINE BILIRUBIN (Dip) NEGATIVE (NEGATIVE); URINE BLOOD (Dip) NEGATIVE (NEGATIVE); URINE COLOR LT. YELLOW (YELLOW); URINE GLUCOSE (Dip) NEGATIVE (NEGATIVE); URINE KETONES (Dip) NEGATIVE (NEGATIVE); URINE LEUKOCYTE ESTERASE (Dip) NEGATIVE (NEGATIVE); URINE NITRITE (Dip) NEGATIVE (NEGATIVE); URINE TOTAL PROTEIN (Dip) NEGATIVE (NEGATIVE); URINE UROBILINOGEN (Dip) 1.0 E.U./dL (0.1-1.0)
[2016-10-07] MEDS ORDERED: SOD CHLORIDE 0.9% 250 ML IV ONE (16:13)
[2016-10-07] MEDS ORDERED: LIDOCAINE 1% (MPF) 5 ML VIAL ONE (16:31)
--- NOTE | 2016-10-07 17:34 | RADRPT ---
PROCEDURE: Ultrasound guided paracentesis. CLINICAL INDICATION: Ascites and shortness of breath. COMPARISON: 07/16/2016. TECHNIQUE: The risks, benefits, and alternatives were explained to the patient and/or the patient's family, inc luding but not limited to bleeding, infection, pain, visceral or vascular damage, shock, and . The patient and/or the patient's family understood the risks and the alternatives and wished to pro ceed with the procedure. Informed written consent was obtained. A procedural time out was performed . The patient's name, date of , and procedure to be performed were verified. Utilizing ultrasound guidance, optimal location for entry to the peritoneal cavity was ascertained. The overlying skin was prepped and draped in the usual sterile fashion. Approximately 10 ml of 1% Xylocaine was injected locally for pain control. Using ultrasound guidance, an 8 [place] catheter wa s introduced into the peritoneal cavity in the right upper quadrant without difficulty. FINDINGS: Initial images demonstrate ascites. Approximately 5.3 liters of serous fluid was aspirated and disc arded. The patient tolerated the procedure well without complication. IMPRESSION: 1. Successful ultrasound-guided paracentesis. RPTAT: QQ .Thomas Talavera MD, Date Time Electronically viewed and signed by .Thomas Talavera MD, on 10/07/2016 17:33 .R/
--- NOTE | 2016-10-07 17:50 | ERA ---
ER Documentation Chief Complaint Date/Time DATE: 10/07/16 TIME: 17:47 Chief Complaint POSSIBLE NEED FOR PARACENTESIS HPI Patient is a 41-year-old female with lupus, cirrhosis, and anemia who presents saying that she is short of breath. She also says "I need a paracentesis". She said her last paracentesis was 1.5 months ago. She has had shortness of breath for 1 week as well as abdominal pain. The symptoms are getting worse. She has shortness of breath with minimal exertion. She denies bleeding. She has been admitted to the panel team in the past upon review of old medical records. ROS All systems reviewed and are negative except as per history of present illness. Medications Home Meds Active Scripts Furosemide* (Furosemide*) 20 Mg Tablet, 20 MG PO BID for 30 Days, #30 TAB Prov:DILLAN JOHNSON NP 04/10/16 Levothyroxine Sodium* (Synthroid*) 200 Mcg Tablet, 275 MCG PO BEFORE BREAKFAST, #30 TAB Prov:DILLAN JOHNSON NP 04/10/16 Reported Medications Ferrous Sulfate* (Ferrous Sulfate*) 325 Mg Tabec, 325 MG PO BID, TAB 10/07/16 Propranolol Hcl* (Propranolol Hcl*) 10 Mg Tablet, 10 MG PO BID, TAB 10/07/16 Discontinued Scripts Ciprofloxacin Hcl* (Ciprofloxacin Hcl*) 750 Mg Tablet, 750 MG PO BID for 7 Days , TAB Prov:JERRI HARRIS 07/19/16 Amoxicillin* (Amoxicillin*) 500 Mg Cap, 500 MG PO Q8 for 7 Days, CAP Prov:JERRI HARRIS 07/19/16 Propranolol Hcl* (Propranolol Hcl*) 10 Mg Tablet, 10 MG PO TID for 30 Days, TAB Prov:DILLAN JOHNSON NP 04/10/16 Pantoprazole* (Protonix*) 40 Mg Tablet.dr, 40 MG PO BID for 30 Days, TAB Prov:DILLAN JOHNSON NP 04/10/16 Lactulose* (Cephulac*) 20 Gm/30 Ml Soln, 20 GM PO Q8 for 30 Days Prov:DILLAN JOHNSON NP 04/10/16 Allergies Allergies: Coded Allergies: No Known Allergy (Unverified , 10/07/16) PMhx/Soc History of Surgery: Yes (LEFT ANKLE; EX LAP, APPENDECTOMY) Anesthesia Reaction: No Hx Neurological Disorder: No Hx Respiratory Disorders: No Hx Cardiac Disorders: Yes (MURMUR; ANEMIA) Hx Psychiatric Problems: No Hx Miscellaneous Medical Probl: No (LUPUS, HYPERTHYROID, AUTOIMMUNE HEP/ CERROHSIS) Hx Alcohol Use: No Hx Substance Use: No Hx Tobacco Use: No Smoking Status: Never smoker FmHx Family History: diabetes Physical Exam Vitals Vital Signs Date Time Temp Pulse Resp B/P Pulse Ox O2 Delivery O2 Flow Rate FiO2 10/07/16 15:59 98.2 66 20 117/56 96 Room Air 10/07/16 13:22 98.0 85 22 136/63 99 Physical Exam Const: Mild distress Head: Atraumatic Eyes: Pale conjunctiva ENT: Normal External Ears, Nose and Mouth. Neck: Full range of motion..~ No meningismus. Resp: Clear to auscultation bilaterally Cardio: Regular rate and rhythm, no murmurs Abd: Soft, distended abdomen with positive fluid wave Skin: Pale Back: No midline or flank tenderness Ext: No cyanosis, or edema Neur: Awake and alert Psych: Normal Mood and Affect Result Diagram: 10/07/16 1520 10/07/16 1520 Results 24 hrs Laboratory Tests Test 10/07/16 15:20 White Blood Count 3.110^3/ul Red Blood Count 3.6710^6/ul Hemoglobin 7.4g/dl Hematocrit 27.8% Mean Corpuscular Volume 75.7fl Mean Corpuscular Hemoglobin 20.2pg Mean Corpuscular Hemoglobin Concent 26.6g/dl Red Cell Distribution Width 17.1% Platelet Count 13150^3/UL Mean Platelet Volume 10.4fl Neutrophils % 60.6% Lymphocytes % 23.1% Monocytes % 11.2% Eosinophils % 3.8% Basophils % 0.3% Nucleated Red Blood Cells % 0.0/100WBC Neutrophils # 1.910^3/ul Lymphocytes # 0.710^3/ul Monocytes # 0.410^3/ul Eosinophils # 0.110^3/ul Basophils # 0.010^3/ul Nucleated Red Blood Cells # 0.010^3/ul Prothrombin Time 14.7Sec Prothrombin Time Ratio 1.1 INR International Normalized Ratio 1.15 Activated Partial Thromboplast Time 34.3Sec Urine Color LT. YELLOW Urine Clarity CLEAR Urine pH 6.0 Urine Specific Mobile 1.015 Urine Ketones NEGATIVE Urine Nitrite NEGATIVE Urine Bilirubin NEGATIVE Urine Urobilinogen 1.0 E.U./dL Urine Leukocyte Esterase NEGATIVE Urine Hemoglobin NEGATIVE Urine Glucose NEGATIVE% Urine Total Protein NEGATIVE Sodium Level 139mmol/L Potassium Level 4.0mmol/L Chloride Level 105mmol/L Carbon Dioxide Level 27mmol/L Anion Gap 11 Blood Urea Nitrogen 12mg/dl Creatinine 0.66mg/dl Glucose Level 86mg/dl Calcium Level 10.1mg/dl Total Bilirubin 0.9mg/dl Direct Bilirubin 0.00mg/dl Indirect Bilirubin 0.9mg/dl Aspartate Amino Transf (AST/SGOT) 47IU/L Alanine Aminotransferase (ALT/SGPT) 27IU/L Alkaline Phosphatase 129IU/L Total Protein 8.8g/dl Albumin 4.3g/dl Globulin 4.50g/dl Albumin/Globulin Ratio 0.95 Lipase 69U/L Current Medications Medications (Trade) Dose Ordered Sig/Kevin Route PRN Reason Start Time Stop Time Status Last Admin Dose Admin Sodium Chloride (NS) 250 ml @ 0 mls/hr Q0M ONCE IV 10/07/16 16:13 10/07/16 16:30 DC 10/07/16 16:13 Lidocaine (Xylocaine 1% (Mpf)) 5 ml STK-MED ONCE .ROUTE 10/07/16 16:31 10/07/16 16:32 DC 10/07/16 16:36 Ondansetron HCl (Zofran Inj) 4 mg BRIDGE ORDER PRN IV NAUSEA AND/OR VOMITING 10/07/16 18:00 10/08/16 17:59 Acetaminophen (Tylenol Tab) 650 mg ER BRIDGE PRN PO MILD PAIN/FEVER 10/07/16 18:00 10/08/16 17:59 Procedures/MDM Ultrasound-guided paracentesis done by radiology. Patient is a 41-year-old female who presents with what appears to be acute symptomatic anemia. Her hemoglobin is 7.4 and she will be transfused 2 units of packed red blood cells. I believe her anemia is likely related to her cirrhosis. This is also why she has ascites. I doubt spontaneous bacterial peritonitis. The patient will be admitted to the panel team as she has been admitted to the panel team in the past and melena gave authorization to admit. The patient will will be admitted to a medical surgical bed. Critical Care: Time: 35 minutes excluding all billable procedures. Treatments/Evaluations: Close monitoring and treatment of unstable vital signs, cardiorespiratory, and neurologic status, while maintaining tight balance of fluid, respiratory, and cardiac interventions. Departure Diagnosis: Primary Impression: Shortness of breath Additional Impressions: Symptomatic anemia Ascites Qualified Code: R18.8 - Other ascites Condition: KIMBERLY Presley MD Oct 07, 2016 17:50
[2016-10-07] MEDS ORDERED: ONDANSETRON 4 MG INJ IV PRN ×2 (18:00→18:30)
[2016-10-07] MEDS ORDERED: ACETAMINOPHEN 325 MG TAB PO PRN ×2 (18:00→18:30)
[2016-10-07] MEDS ORDERED: NACL 0.9% 3 ML SYG IV SCH (18:30)
[2016-10-07] MEDS ORDERED: MAGNESIUM HYDROXIDE 30ML CUP PO PRN (18:30)
[2016-10-07] MEDS ORDERED: HYDROCODONE/APAP (5/325) TAB PO PRN (18:30)
[2016-10-07 19:14] LABS: IRON 33 ug/dl (35-150)
--- NOTE | 2016-10-07 19:20 | HP ---
DATE OF ADMISSION: 10/07/2016 TIME OF EVALUATION: 1815 hours. REASON FOR ADMISSION: Dyspnea, Ascites. HISTORY OF PRESENT ILLNESS: This is a 41-year-old female with past medical history of autoimmune liver cirrhosis, hypothyroidism, lupus, and iron deficiency anemia, who came to the emergency room with chief complaint of shortness of breath, as well as increasing abdominal distention. The patient has a known history of autoimmune liver cirrhosis and requires frequent paracenteses. The patient verbalized that her last paracentesis was approximately 1-1/2 months ago. The patient verbalized that she was having shortness of breath for the past 1 week. The patient denied any cough. She denied any chest pain. She denied any abdominal pain, nausea, vomiting, diarrhea, hematochezia, or melena. She denied any dysuria or hematuria. The patient denied any fevers or chills. In the emergency room, the patient was noticed to have a hemoglobin and hematocrit of 7.4 and 27.8 respectively, with a platelet count of 137. The patient underwent a paracentesis in the emergency room with drainage of 5.3 liters of serous fluid. The patient needs a blood transfusion for her underlying anemia. Hence, the patient will be admitted to inpatient setting since the patient's blood has some antibodies that require further evaluation and may prolong her stay in the ER. PAST MEDICAL HISTORY: Lupus, hypothyroidism, autoimmune hepatitis, anemia, cirrhosis. PAST SURGICAL HISTORY: Exploratory laparotomy, left ankle surgery, appendectomy. HOME MEDICATIONS: 1. Ferrous sulfate 325 mg p.o. b.i.d. 2. Propranolol 10 mg p.o. b.i.d. 3. Lasix 20 mg p.o. b.i.d. 4. Synthroid 275 mcg p.o. before breakfast. ALLERGIES: NO KNOWN DRUG ALLERGIES. SOCIAL HISTORY: The patient lives at home. Denies any history of tobacco, alcohol, or illicit drug use. REVIEW OF SYSTEMS: A 12-point review of systems was negative other than what is mentioned in the history of present illness. PHYSICAL EXAMINATION: VITAL SIGNS: Temperature 98.2, pulse is 66, respiratory rate 20, blood pressure 117/56, oxygen saturation 96% on room air. GENERAL: This is a morbidly-obese female lying in bed, in no apparent distress. HEENT: Head normocephalic and atraumatic. Eyes: Anicteric sclerae. Conjunctivae clear. ENT: Nasal septum is midline. Sethi face. NECK: Short and obese. I am unable to visualize any neck veins. RESPIRATORY: Bilaterally diminished breath sounds. No adventitious breath sounds heard. No use of accessory muscles of respiration. CARDIAC: Regular rate and rhythm with a grade II/ systolic ejection murmur heard at the left sternal border. ABDOMEN: Ascites. Soft. Nontender. Bowel sounds hypoactive in all 4 quadrants. GENITOURINARY: Deferred. EXTREMITIES: No cyanosis, no clubbing. Bilateral lower extremity 1-2+ pitting edema. Peripheral pulses palpable. NEUROLOGIC: The patient is awake, alert, and oriented. Cranial nerves are grossly intact. LABORATORY AND DIAGNOSTIC DATA: WBC 3.1, hemoglobin 7.5, hematocrit 27.8, platelet count 137. Sodium 139, potassium 4, chloride 105, carbon dioxide 20, anion gap 11, BUN 12, creatinine 0.66, glucose 86, calcium 10.1. AST 47, ALT 27 , alkaline phosphatase 129, lipase 69. PT 14.7, INR 1.15, PTT 34.3. Urinalysis: Urine nitrite negative, leukocyte esterase negative, and glucose negative. Ultrasound-guided paracentesis with drainage of 5.3 liters of serous fluid. IMPRESSION: This is a 41-year-old female with past medical history of hypothyroidism, autoimmune hepatitis with underlying cirrhosis, lupus, hypothyroidism, and anemia, who came to the emergency room with chief complaint of dyspnea, and was found to have evidence of anemia, who will be admitted here for further treatment and evaluation. ASSESSMENT AND PLAN: 1. Microcytic hypochromic anemia, symptomatic. Most probably secondary to underlying iron deficiency and underlying liver cirrhosis. The patient will be transfused with 2 units of PRBCs. The patient will be continued on iron supplements. The patient's iron panel will be rechecked. 2. Autoimmune liver cirrhosis with underlying ascites. The patient is status post paracentesis. The patient will be continued on propranolol and Lasix. 3. Hypothyroidism. The patient will be continued on Synthroid. The patient's thyroid function panel will be obtained. 4. Iron deficiency. The patient will be maintained on iron supplements. An iron panel will be obtained. 5. History of lupus. Currently stable. Outpatient followup recommended. Plan. The patient will be admitted to inpatient medical/surgical floor. The patient will be started on a regular diet. The patient will be started on DVT prophylaxis and gastrointestinal prophylaxis. The patient will remain a FULL CODE. Activities will be as tolerated. The rest of the patient's management will be based on the clinical course and the results of diagnostic studies. Based on the patient's clinical presentation, she most probably requires at least 1 midnight's stay for further management and evaluation of her clinical presentation. The case and management of this patient was fully discussed with Dr. Garcia. DILLAN GARCIA MD, AM/MARIO Conf#: [id number] DID#: [id number] MTDD
[2016-10-07 19:24] LABS: TOTAL IRON BINDING CAPACITY 481 ug/dl (241-421)
[2016-10-07 19:46] LABS: THYROID STIMULATING HORMONE 7.83 MIU/L (0.465-4.680)
[2016-10-07 19:50] LABS: FERRITIN 6.7 ng/ml (6.2-137.0)
[2016-10-07] MEDS: FAMOTIDINE 20 MG INJ IV SCH (20:43)
[2016-10-07] MEDS: FUROSEMIDE 20 MG TAB PO SCH (20:49)
[2016-10-07] MEDS: FERROUS SULFATE (EC) 325 MG TAB PO SCH (20:50)
[2016-10-07] MEDS: PROPRANOLOL 10 MG TAB PO SCH (20:52)
[2016-10-07] MEDS ORDERED: DIPHENHYDRAMINE 50 MG CAP PO ONE (22:30)
[2016-10-08 00:33] VITALS: RESP 18; TEMP 98.6
[2016-10-08 02:51] VITALS: Ht 170.2 cm; Wt 127.3 kg
[2016-10-08] MEDS ORDERED: LEVOTHYROXINE 137 MCG TAB PO SCH (07:00)
[2016-10-08] MEDS: FERROUS SULFATE (EC) 325 MG TAB PO SCH (08:40)
[2016-10-08] MEDS: FAMOTIDINE 20 MG INJ IV SCH (08:40)
[2016-10-08] MEDS: FUROSEMIDE 20 MG TAB PO SCH (08:41)
[2016-10-08 08:47] VITALS: BP 139/64; PULSE 60
[2016-10-08] MEDS: PROPRANOLOL 10 MG TAB PO SCH (10:00)
[2016-10-08 10:35] LABS: ADD SCAN DIFF NO
[2016-10-08 10:49] LABS: ABNORMAL IP MESSAGE 1; BASOPHILS % 0.6 % (0.0-2.0); EOSINOPHILS # 0.1 10^3/ul (0.0-0.5); EOSINOPHILS % 3.4 % (0.0-7.0); HEMATOCRIT 32.2 % (37.0-47.0); HEMOGLOBIN 8.7 g/dl (12.0-16.0); LYMPHOCYTES # 0.5 10^3/ul (0.8-2.9); LYMPHOCYTES % 13.5 % (15.0-51.0); MEAN CORPUSCULAR HEMOGLOBIN 20.8 pg (29.0-33.0); MEAN CORPUSCULAR VOLUME 76.8 fl (82.0-101.0); MEAN PLATELET VOLUME 11.2 fl (7.4-10.4); MONOCYTE # 0.4 10^3/ul (0.3-0.9); MONOCYTES % 12.1 % (0.0-11.0); NEUTROPHIL # 2.5 10^3/ul (1.6-7.5); PLATELET COUNT 132 10^3/UL (140-415); RED BLOOD COUNT 4.19 10^6/ul (4.20-5.40); RED CELL DISTRIBUTION WIDTH 17.8 % (11.5-14.5); WHITE BLOOD COUNT 3.6 10^3/ul (4.8-10.8)
[2016-10-08 10:53] LABS: ALBUMIN 4.5 g/dl (3.3-4.9)
[2016-10-08 10:56] LABS: ALBUMIN/GLOBULIN RATIO 0.93; BILIRUBIN,INDIRECT 3.2 mg/dl (0-1.1); BILIRUBIN,TOTAL 3.2 mg/dl (0.2-1.3); CREATININE 0.73 mg/dl (0.44-1.00); TOTAL PROTEIN 9.3 g/dl (6.1-8.1)
[2016-10-08 10:57] LABS: CALCIUM 10.3 mg/dl (8.4-10.2)
[2016-10-08 10:58] LABS: CHOL/HDL RATIO 11.9 RATIO; PHOSPHORUS 3.8 mg/dl (2.5-4.9)
[2016-10-08 11:37] LABS: INR 1.21; PROTIME 15.4 Sec (12.2-14.2); PT RATIO 1.2
[2016-10-08 11:38] LABS: PARTIAL THROMBOPLASTIN TIME 35.6 Sec (25.0-35.0)
--- NOTE | 2016-10-08 12:32 | PDOCDIS ---
Discharge Instructions DIAGNOSIS Discharge Diagnosis: Ascites. Anemia. CONDITION Patient Condition: Stable HOME CARE INSTRUCTIONS: Diet Instructions: Low Fat /Cholesterol FOLLOW UP/APPOINTMENTS Appointments Rasta Simmons MD Specialty: Internal Medicine Office Address: [address] [place], [place] [id number] Office OTHER ORDERS: Other Orders: 1. Take a regular, preferably low-cholesterol diet. 2. Resume home medications. 3. Resume activities as tolerated. 4. Follow-up with your primary care physician as scheduled. If you do not have a primary care physician, please call Dr. Rasta Simmons's office. DILLAN JOHNSON NP Oct 08, 2016 12:32
[2016-10-08] MEDS ORDERED: LACT20SO2 PO (14:47)
--- NOTE | 2016-10-09 08:49 | DS ---
DATE OF ADMISSION: 10/07/2016 DATE OF DISCHARGE: 10/08/2016 FINAL DIAGNOSES: 1. Microcytic hypochromic anemia. Symptomatic. Status post blood transfusion. 2. Autoimmune liver cirrhosis with underlying ascites. Status post paracentesis. 3. Hypothyroidism. 4. Iron deficiency. 5. History of lupus. 6. Morbid obesity. 7. Dyslipidemia. HOSPITAL COURSE: This is a 41-year-old female with past medical history of autoimmune liver cirrhosis, hypothyroidism, lupus, and iron deficiency anemia who came to the emergency room with chief complaint of shortness of breath as well as increasing abdominal distention. The patient has known history of autoimmune liver cirrhosis and she gets frequent paracentesis. The patient verbalized that her last paracentesis was approximately 1-1/2 months ago. The patient verbalized that she was having shortness of breath for 1 week. The patient denied any cough, chest pain, abdominal pain, nausea, vomiting, diarrhea , hematochezia, or melena. In the emergency room, the patient was noticed to have anemia with a hemoglobin and hematocrit of 7.4 and 27.8 respectively. Provided the patient's history of present illness and the diagnostic findings, a clinical decision was made to admit the patient to inpatient setting to have her further evaluated. The patient was admitted to medical/surgical floor. Paracentesis was ordered. The patient underwent an ultrasound-guided paracentesis by interventional radiology that drained out 5.3 liters of serous fluid. The patient had no evidence of any spontaneous bacterial peritonitis. The patient received 2 units of PRBC with improvement in the patient's H&H. The patient has underlying autoimmune liver cirrhosis. The patient was maintained on her routine medications including Propranolol, Lasix and lactulose. The patient was maintained on iron supplements for underlying iron deficiency. The patient's repeat iron panel showed evidence of iron deficiency. The patient has history of lupus. The patient is currently stable. The patient has underlying hypothyroidism. She was maintained on Synthroid for the same. The patient's thyroid panel showed satisfactory TSH and free T4. The patient had a stable hospital course. The patient is stable to be discharged home. DISCHARGE DISPOSITION/PLAN: The patient will be discharged home today. The patient was instructed to take a regular, preferably low-cholesterol diet. She was to resume her home medications. The patient was instructed to resume activities as tolerated. The patient was instructed to follow up with her primary care physician as scheduled and if she does not have a primary care physician to please call Dr. Rasta Simmons's office. The patient verbalized understanding of her discharge instructions. CONDITION AT DISCHARGE: Stable. DISCHARGE MEDICATIONS: 1. Ferrous sulfate 325 mg p.o. b.i.d. 2. Lasix 20 mg p.o. b.i.d. 3. Synthroid 275 mcg p.o. before breakfast. 4. Propranolol 10 mg p.o. b.i.d. 5. Lactulose 20 mg p.o. q.8h. PERTINENT LABORATORY AND DIAGNOSTIC DATA: 1. Paracentesis with successful drainage of 5.3 liters of serous fluid. 2. Latest CBC: WBC 3.6, hemoglobin 8.7, hematocrit 32.2, platelet count 132. 3. Latest BMP: Sodium 143, potassium 4.0, chloride 100, carbon dioxide 25, anion gap 19, BUN 14, creatinine 0.6, glucose 106, calcium 10.3, phosphorus 3.8 , magnesium 2.0. 4. Hemoglobin A1c 5.0. 5. Ammonia 32. 6. Fasting lipid panel: Triglycerides 273, total cholesterol 160, LDL 98, HDL 14. 7. Iron panel. Iron 33, TIBC 481, iron saturation 7, ferritin 6.7. The case and management of this patient was fully discussed with Dr. Garcia. Approximately 35 minutes was spent on coordinating the discharge on this patient. DILLAN GARCIA MD, AM/MARIO Conf#: [id number] DID#: [id number] MTDD
== END 2016-10-08 14:00 | disposition home or self-care (01) | DRG 433 ==
LOC: E/R 13:20 → PP2 17:41
PROVIDERS: ADMIT Family Medicine; ATTEND Family Medicine
PROC: 0W9G3ZZ Drainage of Peritoneal Cavity, Percutaneous Approach (ICD-10-PCS; principal; 2016-10-07)
PROC: 30233N1 Transfusion of Nonautologous Red Blood Cells into Peripheral Vein, Percutaneous Approach (ICD-10-PCS; 2016-10-07)
DX: K74.69 Other cirrhosis of liver (principal); R18.8 Other ascites; M32.9 Systemic lupus erythematosus, unspecified; Z68.41 Body mass index [BMI] 40.0-44.9, adult; E66.01 Morbid (severe) obesity due to excess calories; D50.9 Iron deficiency anemia, unspecified; E03.9 Hypothyroidism, unspecified; E78.5 Hyperlipidemia, unspecified
CPT/HCPCS: 36415; 36430; 80053; 80061; 81003; 82140; 82728; 83036; 83540; 83690; 83735; 84100; 84439; 84443; 85025; 85610; 85730; 86850; 86870; 86900; 86901; 86920; 96374; J7040; P9016

== ENCOUNTER 2016-12-13 14:21 | Inpatient (IN) | payer OTHER ==
[~2016-12-13] VITALS: Ht 167.6 cm; Wt 131.0 kg
[~2016-12-13 14:21] MED LIST changes: -AMO500 PO; -CIPR750T3 PO; +FER325 PO; -LACT20SO12 PO; +LACT20SO2 PO; -PANT40TA3 PO
[2016-12-13 15:55] LABS: ADD SCAN DIFF NO
[2016-12-13 15:58] LABS: ABNORMAL IP MESSAGE 1; HEMATOCRIT 29.1 % (37.0-47.0); HEMOGLOBIN 7.7 g/dl (12.0-16.0); MEAN CORPUSCULAR HEMOGLOBIN 19.9 pg (29.0-33.0); MEAN CORPUSCULAR HGB CONC 26.5 g/dl (32.0-37.0); MEAN CORPUSCULAR VOLUME 75.2 fl (82.0-101.0); MEAN PLATELET VOLUME 10.9 fl (7.4-10.4); PLATELET COUNT 136 10^3/UL (140-415); RED BLOOD COUNT 3.87 10^6/ul (4.20-5.40); RED CELL DISTRIBUTION WIDTH 18.8 % (11.5-14.5); WHITE BLOOD COUNT 2.8 10^3/ul (4.8-10.8)
[2016-12-13 16:16] LABS: INR 1.14; PROTIME 14.6 Sec (12.2-14.2); PT RATIO 1.1
[2016-12-13 16:17] LABS: PARTIAL THROMBOPLASTIN TIME 34.9 Sec (25.0-35.0)
[2016-12-13 16:18] LABS: ALBUMIN 4.9 g/dl (3.3-4.9); ALBUMIN/GLOBULIN RATIO 1.16; BILIRUBIN,INDIRECT 0.7 mg/dl (0-1.1); BILIRUBIN,TOTAL 0.7 mg/dl (0.2-1.3); CALCIUM 10.8 mg/dl (8.4-10.2); CREATININE 0.84 mg/dl (0.44-1.00); POTASSIUM 4.2 mmol/L (3.5-5.1); TOTAL PROTEIN 9.1 g/dl (6.1-8.1)
[2016-12-13 16:29] LABS: EOSINOPHILS # 0.1 10^3/ul (0.0-0.5); LYMPHOCYTES # 0.8 10^3/ul (0.8-2.9); MONOCYTE # 0.2 10^3/ul (0.3-0.9); NEUTROPHIL # 1.7 10^3/ul (1.6-7.5)
[2016-12-13 16:30] LABS: HYPOCHROMASIA 1+; MICROCYTOSIS 1+
[2016-12-13] MEDS ORDERED: LIDOCAINE 1% (MPF) 5 ML VIAL ONE (17:51)
[2016-12-13] MEDS ORDERED: SOD CHLORIDE 0.9% 250 ML IV ONE (18:10)
--- NOTE | 2016-12-13 18:30 | RADRPT ---
PROCEDURE: Ultrasound guided paracentesis. CLINICAL INDICATION: Ascites and shortness of breath. COMPARISON: 10/07/2016. TECHNIQUE: The risks, benefits, and alternatives were explained to the patient and/or the patient's family, inc luding but not limited to bleeding, infection, pain, visceral or vascular damage, shock, and . The patient and/or the patient's family understood the risks and the alternatives and wished to pro ceed with the procedure. Informed written consent was obtained. A procedural time out was performed . The patient's name, date of , and procedure to be performed were verified. Utilizing ultrasound guidance, optimal location for entry to the peritoneal cavity was ascertained. The overlying skin was prepped and draped in the usual sterile fashion. Approximately 10 ml of 1% Xylocaine was injected locally for pain control. Using ultrasound guidance, an 8 Mal[place]ian catheter wa s introduced into the peritoneal cavity in the right lower quadrant without difficulty. FINDINGS: Initial images demonstrate ascites. Approximately 7.8 liters of serous fluid was aspirated and disc arded. The patient tolerated the procedure well without complication. IMPRESSION: 1. Successful ultrasound-guided paracentesis. RPTAT: QQ .Thomas Talavera MD, Date Time Electronically viewed and signed by .Thomas Talavera MD, on 12/13/2016 18:30 .R/
[2016-12-13 18:56] VITALS: PULSE 70
[2016-12-13] MEDS ORDERED: PANT40TA4 PO (19:51)
[2016-12-13] MEDS ORDERED: ONDANSETRON 4 MG INJ IV PRN ×2 (20:30→23:00)
[2016-12-13] MEDS ORDERED: ACETAMINOPHEN 325 MG TAB PO PRN (20:30)
--- NOTE | 2016-12-13 21:37 | ERA ---
ER Documentation Chief Complaint Date/Time DATE: 12/13/16 TIME: 21:35 Chief Complaint here for paracenthesis, hx cirrhosis HPI This 41-year-old female comes emergency for increasing intra-abdominal ascites. States that she is little more tired than usual and has some generalized weakness but denies fevers chills or significant abdominal pain. She has an appointment to see a jawbone puller next month but has not had anything arrange for clinic follow-up for paracentesis yet. Denies any blood in her stool or dark bowel movements. She has no nausea or vomiting. ROS All systems reviewed and are negative except as per history of present illness. Medications Home Meds Active Scripts Furosemide* (Furosemide*) 20 Mg Tablet, 20 MG PO BID for 30 Days, #30 TAB Prov:DILLAN JOHNSON MANUSCRIPT READER 04/10/16 Levothyroxine Sodium* (Synthroid*) 200 Mcg Tablet, 275 MCG PO BEFORE BREAKFAST, #30 TAB Prov:DILLAN JOHNSON MANUSCRIPT READER 04/10/16 Reported Medications Pantoprazole* (Pantoprazole*) 40 Mg Tablet.dr, 40 MG PO DAILY, TAB 12/13/16 Propranolol Hcl* (Propranolol Hcl*) 10 Mg Tablet, 10 MG PO BID, TAB 10/07/16 Discontinued Reported Medications Ferrous Sulfate* (Ferrous Sulfate*) 325 Mg Tabec, 325 MG PO BID, TAB 10/07/16 Discontinued Scripts Lactulose* (Lactulose*) 20 Gm/30 Ml Solution, 20 GM PO TID for 30 Days, ML Prov:DILLAN JOHNSON MANUSCRIPT READER 10/08/16 Allergies Allergies: Coded Allergies: No Known Allergy (Unverified , 12/13/16) PMhx/Soc History of Surgery: Yes (left ankle repair;explore lap;appendectomy) Anesthesia Reaction: No Hx Neurological Disorder: No Hx Respiratory Disorders: No Hx Cardiac Disorders: Yes (heart murmur) Hx Psychiatric Problems: No Hx Miscellaneous Medical Probl: Yes (chronic anemia, hypothiroidism, lupus, liver chirrosis.) Hx Alcohol Use: No Hx Substance Use: No Hx Tobacco Use: No Smoking Status: Never smoker Physical Exam Vitals Vital Signs Date Time Temp Pulse Resp B/P Pulse Ox O2 Delivery O2 Flow Rate FiO2 12/13/16 18:56 70 16 113/53 97 Room Air 12/13/16 14:27 98.1 78 18 183/75 99 Physical Exam Const: [] Head: Atraumatic Eyes: Normal Conjunctiva ENT: Normal External Ears, Nose and Mouth. Neck: Full range of motion..~ No meningismus. Resp: Clear to auscultation bilaterally Cardio: Regular rate and rhythm, no murmurs Abd: Soft, non tender, non distended. Normal bowel sounds Skin: No petechiae or rashes Back: No midline or flank tenderness Ext: No cyanosis, or edema Neur: Awake and alert Psych: Normal Mood and Affect Result Diagram: 12/13/16 1545 12/13/16 1545 Results 24 hrs Laboratory Tests Test 12/13/16 15:45 White Blood Count 2.810^3/ul Red Blood Count 3.8710^6/ul Hemoglobin 7.7g/dl Hematocrit 29.1% Mean Corpuscular Volume 75.2fl Mean Corpuscular Hemoglobin 19.9pg Mean Corpuscular Hemoglobin Concent 26.5g/dl Red Cell Distribution Width 18.8% Platelet Count 32245^3/UL Mean Platelet Volume 10.9fl Neutrophils % 62.0% Lymphocytes % 29.0% Monocytes % 6.0% Eosinophils % 3.0% Neutrophils # 1.710^3/ul Lymphocytes # 0.810^3/ul Monocytes # 0.210^3/ul Eosinophils # 0.110^3/ul Hypochromasia 1+ Microcytosis 1+ Prothrombin Time 14.6Sec Prothrombin Time Ratio 1.1 INR International Normalized Ratio 1.14 Activated Partial Thromboplast Time 34.9Sec Sodium Level 144mmol/L Potassium Level 4.2mmol/L Chloride Level 108mmol/L Carbon Dioxide Level 27mmol/L Anion Gap 13 Blood Urea Nitrogen 12mg/dl Creatinine 0.84mg/dl Glucose Level 99mg/dl Calcium Level 10.8mg/dl Total Bilirubin 0.7mg/dl Direct Bilirubin 0.00mg/dl Indirect Bilirubin 0.7mg/dl Aspartate Amino Transf (AST/SGOT) 46IU/L Alanine Aminotransferase (ALT/SGPT) 37IU/L Alkaline Phosphatase 108IU/L Total Protein 9.1g/dl Albumin 4.9g/dl Globulin 4.20g/dl Albumin/Globulin Ratio 1.16 Current Medications Medications (Trade) Dose Ordered Sig/Kevin Route PRN Reason Start Time Stop Time Status Last Admin Dose Admin Lidocaine 5 ml 5 ml STK-MED ONCE .ROUTE 12/13/16 17:51 12/13/16 17:52 DC Sodium Chloride (NS) 250 ml @ 0 mls/hr Q0M ONCE IV 12/13/16 18:10 12/13/16 18:11 DC Procedures/MDM Symptomatic anemia and ascites and patient with chronic liver failure. Very low suspicion for spontaneous bacterial peritonitis. Hemoglobin of 7.7 without fluid hydration. Previously had hemoglobin of 7.4 the patient was transfused. She states that she continuously goes low until she is transfused. Because she is symptomatic she would like to be transfused before he gets worse. I agree with this plan of action so I would not want her oxygen carrying capacity decrease further. She is transfused 2 units of packed red blood cells beginning in the emergency room. She is going to be admitted to Dr. Polanco for monitoring and further management. Ultrasound-guided paracentesis note: Significant intra-abdominal ascites with cirrhosis. Departure Diagnosis: Primary Impression: Symptomatic anemia Additional Impression: Ascites Condition: Stable KAMALA COELLO DO Dec 13, 2016 21:37
[2016-12-13 21:45] VITALS: Ht 167.6 cm; Wt 131.0 kg
[2016-12-13] MEDS ORDERED: DOCUSATE SODIUM 100 MG CAP PO PRN (23:00)
[2016-12-13] MEDS ORDERED: BISACODYL (EC) 5 MG TAB PO PRN (23:00)
[2016-12-13] MEDS ORDERED: NACL 0.9% 3 ML SYG IV SCH (23:00)
[2016-12-14 00:35] VITALS: BP 123/59; RESP 18
[2016-12-14] MEDS: PROPRANOLOL 10 MG TAB PO SCH ×2 (00:36→08:33)
[2016-12-14] MEDS: FAMOTIDINE 20 MG TAB PO SCH ×2 (00:36→08:45)
--- NOTE | 2016-12-14 00:57 | HP ---
Date/Time of Note Date/Time of Note DATE: 12/14/16 TIME: 00:57 Assessment/Plan VTE Prophylaxis VTE Prophylaxis Intervention: SCD's Assessment/Plan Chief Complaint/Hosp Course This is a 41-year-old female being admitted to the telemetry floor for: 1. Symptomatic anemia: Most probably secondary to underlying iron deficiency and underlying liver cirrhosis. Patient will be typed and crossed the patient will be transfused with 2 units of PRBCs. Check iron levels, patient currently not on iron supplements. 2. Autoimmune liver cirrhosis with underlying ascites. The patient is status post paracentesis of approximately 7.8 liters. The patient will be continued on propranolol and Lasix. 3. Hypothyroidism. The patient will be continued on Synthroid. Check TSH 4. Iron deficiency. Will check iron levels. 5. History of lupus. Currently stable. Outpatient followup recommended. 6. DVT and GI prophylaxis: SCDs, Protonix Problems: HPI/ROS Admit Date/Time Admit Date/Time Dec 13, 2016 at 20:11 Hx of Present Illness Chief complaint: Abdominal distention and shortness of breath This 41-year-old female comes emergency for increasing intra-abdominal ascites. States that she is little more tired than usual and has some generalized weakness but denies fevers chills or significant abdominal pain. She has an appointment to see a fast food crew member next month but has not had anything arranged for clinic follow-up for paracentesis yet. Denies any blood in her stool or dark bowel movements. She has no nausea or vomiting. She has been to the ER previously for therapeutic paracentesis. Last time she was here she had 5.3 L approximately drained. She also previously had a blood transfusion secondary to her anemia. She did receive a paracentesis today in the ED which resulted in extraction of 7.8 L of fluid. Allergies: NKDA Medications: See SEP ROS Const: As per HPI Eyes : No pain discharge or redness or change in visual acuity ENT: No pain, sore throat, congestion, congestion, dysphagia or discharge Respiratory: As per HPI Cardiovascular: No chest pain, palpitation, PND, or edema GI : As per HPI Genitourinary: No dysuria, hematuria, flank pain , discharge or CVA tenderness Musculoskeletal: No joint pain, back pain, neck pain, restricted range of motion in neck or joints Skin: No rash, bruising or hives Neuro: No headache, dizziness, syncope, seizure, focal weakness Endocrine: No polyuria, polydipsia, temperature intolerance Psych: No hallucination, depression, anxiety or suicidal ideation PMH/Family/Social Past Medical History Lupus, hypothyroidism, autoimmune hepatitis, anemia, cirrhosis. Past Surgical History Exploratory laparotomy, left ankle surgery, appendectomy. Past Surgical Hx: other Family History Significant Family History: cancer (liver ca: grandpa, aunt: breast ca, mom: ovarian cancer) Social History Alcohol Use: none Smoking Status: Never smoker Drug Use: none Exam/Review of Systems Vital Signs Vitals Vital Signs Date Time Temp Pulse Resp B/P Pulse Ox O2 Delivery O2 Flow Rate FiO2 12/14/16 00:35 98.2 68 18 123/59 96 12/13/16 18:56 Room Air Exam Exam General: Patient is well-developed well-nourished The patient is alert oriented -3 lying comfortably in bed. HEENT: Atraumatic, normocephalic. The pupils are equal, round and reactive. Extraocular motor are intact Neck: Supple with full range of motion. No rigidity or meningismus Chest: Nontender Lungs: Clear to auscultation bilaterally no crackles rales or wheezing Heart: Normal S1-S2, Regular rhythm and rate. No murmur, S3, or S4 Abdomen: Soft, nontender, no distinct fluid wave noted, right dressing clean dry and intact over the paracentesis site. Extremities: Normal to inspection, no edema no cyanosis Neurologic: Normal mental status, speech normal, cranial nerves II through XII are intact, motor and sensory are intact, no focal weakness Additional Comments PROCEDURE: Ultrasound guided paracentesis. CLINICAL INDICATION: Ascites and shortness of breath. COMPARISON: 10/07/2016. TECHNIQUE: The risks, benefits, and alternatives were explained to the patient and/or the patient's family, including but not limited to bleeding, infection, pain, visceral or vascular damage, shock, and . The patient and/or the patient' s family understood the risks and the alternatives and wished to proceed with the procedure. Informed written consent was obtained. A procedural time out was performed. The patient's name, date of , and procedure to be performed were verified. Utilizing ultrasound guidance, optimal location for entry to the peritoneal cavity was ascertained. The overlying skin was prepped and draped in the usual sterile fashion. Approximately 10 ml of 1% Xylocaine was injected locally for pain control. Using ultrasound guidance, an 8 [place]bourgish catheter was introduced into the peritoneal cavity in the right lower quadrant without difficulty. FINDINGS: Initial images demonstrate ascites. Approximately 7.8 liters of serous fluid was aspirated and discarded. The patient tolerated the procedure well without complication. IMPRESSION: 1. Successful ultrasound-guided paracentesis. Labs Result Diagram: 12/13/16 1545 12/13/16 1545 Medications Medications Current Medications Acetaminophen (Tylenol Tab) 650 mg Q4H PRN PO PAIN; Start 12/13/16 at 22:30 Diphenhydramine HCl (Benadryl) 50 mg Q6H PRN PO ITCHING; Start 12/13/16 at 22: 30 Ondansetron HCl (Zofran Inj) 4 mg Q6H PRN IV NAUSEA AND/OR VOMITING; Start 06/19 at 23:00 Docusate Sodium (Colace) 100 mg Q12H PRN PO CONSTIPATION; Start 12/13/16 at 23: 00 Bisacodyl (Dulcolax) 5 mg DAILY PRN PO CONSTIPATION; Start 12/13/16 at 23:00 Famotidine (Pepcid) 20 mg Q12 PO Last administered on 12/14/16 00:36; Admin Dose 20 MG; Start 12/13/16 at 23:00 Pantoprazole (Protonix Tab) 40 mg DAILY@06 PO ; Start 12/14/16 at 06:00 Propranolol HCl (Inderal) 10 mg BID PO Last administered on 12/14/16 00:36; Admin Dose 10 MG; Start 12/13/16 at 23:00 Lactulose (Enulose) 20 gm BID PO ; Start 12/14/16 at 09:00; Status JOHN NDIAYE Dec 14, 2016 00:57
[2016-12-14] MEDS ORDERED: LACT20SO2 PO (00:58)
[2016-12-14] MEDS: DIPHENHYDRAMINE 50 MG CAP PO PRN ×2 (02:32→08:45)
[2016-12-14] MEDS: ACETAMINOPHEN 325 MG TAB PO PRN ×2 (02:32→08:19)
[2016-12-14] MEDS ORDERED: PANTOPRAZOLE (EC) 40 MG TAB PO SCH (06:00)
[2016-12-14] MEDS ORDERED: FUROSEMIDE 20 MG TAB PO SCH (06:00)
[2016-12-14] MEDS ORDERED: LEVOTHYROXINE 100 MCG TAB PO SCH ×2 (07:00→07:30)
[2016-12-14] MEDS ORDERED: LEVOTHYROXINE 75 MCG TAB PO SCH (07:30)
[2016-12-14 08:19] VITALS: BP 97/51; RESP 18
[2016-12-14] MEDS ORDERED: LACTULOSE 30ML CUP PO SCH ×3 (09:00)
--- NOTE | 2016-12-14 12:43 | PDOCDIS ---
Discharge Instructions DIAGNOSIS Discharge Diagnosis: Anemia. Ascites. CONDITION Patient Condition: Stable HOME CARE INSTRUCTIONS: Special Diet: low NA OTHER ORDERS: Other Orders: 1. Take a regular and low-sodium, preferably a low-cholesterol diet. 2. Resume home medications. 3. Resume activities as tolerated. 4. Follow-up with your primary care physician as scheduled. If you do not have a primary care physician, please call Dr. Rasta Simmons's office. DILLAN JOHNSON NP Dec 14, 2016 12:43
[2016-12-14] MEDS ORDERED: FER325 PO (12:44)
[2016-12-14 14:24] LABS: ADD SCAN DIFF NO
[2016-12-14 14:29] LABS: ABNORMAL IP MESSAGE 1; BASOPHILS % 0.9 % (0.0-2.0); EOSINOPHILS # 0.1 10^3/ul (0.0-0.5); EOSINOPHILS % 4.1 % (0.0-7.0); HEMATOCRIT 35.3 % (37.0-47.0); HEMOGLOBIN 9.5 g/dl (12.0-16.0); LYMPHOCYTES # 0.5 10^3/ul (0.8-2.9); LYMPHOCYTES % 14.5 % (15.0-51.0); MEAN CORPUSCULAR HEMOGLOBIN 20.6 pg (29.0-33.0); MEAN CORPUSCULAR HGB CONC 26.9 g/dl (32.0-37.0); MEAN CORPUSCULAR VOLUME 76.6 fl (82.0-101.0); MEAN PLATELET VOLUME 10.2 fl (7.4-10.4); MONOCYTE # 0.4 10^3/ul (0.3-0.9); MONOCYTES % 11.5 % (0.0-11.0); NEUTROPHIL # 2.3 10^3/ul (1.6-7.5); NEUTROPHILS % 68.4 % (39.0-77.0); PLATELET COUNT 153 10^3/UL (140-415); RED BLOOD COUNT 4.61 10^6/ul (4.20-5.40); RED CELL DISTRIBUTION WIDTH 19.2 % (11.5-14.5); WHITE BLOOD COUNT 3.4 10^3/ul (4.8-10.8)
[2016-12-14 14:47] LABS: IRON 102 ug/dl (35-150)
[2016-12-14 14:49] LABS: ALBUMIN 4.8 g/dl (3.3-4.9); ALBUMIN/GLOBULIN RATIO 1.04; CALCIUM 10.9 mg/dl (8.4-10.2); CREATININE 0.85 mg/dl (0.44-1.00); POTASSIUM 4.5 mmol/L (3.5-5.1); TOTAL PROTEIN 9.4 g/dl (6.1-8.1)
[2016-12-14 14:57] LABS: TOTAL IRON BINDING CAPACITY 437 ug/dl (241-421)
--- NOTE | 2016-12-14 16:43 | DS ---
DATE OF ADMISSION: 12/13/2016 DATE OF DISCHARGE: 12/14/2016 FINAL DIAGNOSES: 1. Microcytic hypochromic anemia, symptomatic. Status post blood transfusion. 2. Autoimmune liver cirrhosis with underlying ascites. Status post paracentesis. 3. Hypothyroidism. 4. Iron deficiency. 5. History of lupus. 6. Morbid obesity. 7. Dyslipidemia. HOSPITAL COURSE: This is a 41-year-old female with multiple comorbidities who came to the emergency room with chief complaint of abdominal distention and shortness of breath. The patient verbalized malaise. The patient denied any chills or significant abdominal pain. She had an appointment to see blueprinting machine operator next month, but has not had a clinic follow up for paracentesis. There was no reported melena or hematochezia. There was no reported nausea or vomiting. The patient underwent a paracentesis in the emergency room with drainage of 7.8 liters of fluid. The patient was noticed to have anemia. Provided the patient's history of present illness and her comorbidities, a clinical decision was made to admit the patient to inpatient setting to have her further evaluated. The patient was admitted to inpatient medical/surgical floor. The patient was provided with 2 units of PRBCs with improvement in the patient's H and H. The patient also had an ultrasound-guided paracentesis for her underlying ascites secondary to autoimmune liver cirrhosis. The patient was maintained on Synthroid for her hypothyroidism. The patient has underlying iron deficiency. The patient was maintained on iron supplements. The patient has underlying history of lupus. The patient remained stable. The patient has underlying morbid obesity. The patient was advised on weight reduction. She also has underlying dyslipidemia. Hence, the patient was given a low cholesterol diet. The patient's symptoms improved. The patient denied any more shortness breath or abdominal distention. The patient is medically stable to be discharged home. DISCHARGE DISPOSITION AND PLAN: The patient will be discharged home today. The patient was instructed to resume her home medications. The patient was instructed in activity as tolerated. The patient was instructed to follow up with her primary care physician in 1 week. If she does not have a primary care physician to please call Dr. Rasta Simmons's office. The patient verbalized understanding of her discharge instructions. CONDITION AT DISCHARGE: Stable. DISCHARGE MEDICATIONS: 1. Ferrous sulfate 325 mg p.o. b.i.d. 2. Lasix 20 mg p.o. daily. 3. Lactulose 20 grams p.o. b.i.d. 5. Synthroid 125 mcg p.o. before breakfast. 6. Pantoprazole 40 mg p.o. daily. PERTINENT LABORATORY AND DIAGNOSTIC DATA: 1. The patient will get a paracentesis on 12/13/2016. Successful ultrasound- guided paracentesis with drainage of 7.8 liters of serous fluid. 2. Latest CBC: WBC 3.4, hemoglobin 9.5, hematocrit 35.3, platelet count 153. 3. Latest BMP: Sodium 141, potassium 4.5, chloride 106, carbon dioxide 25, anion gap 16, BUN 12, creatinine 0.7, glucose 90, calcium 10.9, magnesium 20.0, iron 102, TIBC 435, iron saturation 23. 4. Free TSH 20.6. The case and management of this patient was fully discussed with Dr. Perez. Approximately 35 minutes was spent on coordinating discharge on this patient. DILLAN PEREZ MD, AM/MARIO Conf#: [id number] DID#: [id number] MTDD
== END 2016-12-14 18:28 | disposition home or self-care (01) | DRG 433 ==
LOC: E/R 14:21 → PP2 20:11
PROVIDERS: ADMIT Family Medicine; ATTEND Family Medicine
PROC: 0W9G3ZZ Drainage of Peritoneal Cavity, Percutaneous Approach (ICD-10-PCS; principal; 2016-12-13)
PROC: 30233N1 Transfusion of Nonautologous Red Blood Cells into Peripheral Vein, Percutaneous Approach (ICD-10-PCS; 2016-12-14)
DX: K74.69 Other cirrhosis of liver (principal); Z68.42 Body mass index [BMI] 45.0-49.9, adult; M32.9 Systemic lupus erythematosus, unspecified; E03.9 Hypothyroidism, unspecified; D50.9 Iron deficiency anemia, unspecified; E66.01 Morbid (severe) obesity due to excess calories; E78.5 Hyperlipidemia, unspecified
CPT/HCPCS: 36415; 36430; 80053; 82728; 83540; 83735; 84443; 84466; 85025; 85610; 85730; 86850; 86870; 86900; 86901; 86920; J7040; P9016

== ENCOUNTER 2017-02-08 12:46 | Emergency (ER) | payer OTHER ==
[~2017-02-08] VITALS: Ht 162.6 cm; Wt 138.5 kg
[~2017-02-08 12:46] MED LIST changes: +PANT40TA4 PO
[2017-02-08 12:47] VITALS: Ht 162.6 cm; Wt 138.5 kg
[2017-02-08] MEDS ORDERED: FURO20TA3 PO (14:10)
[2017-02-08] MEDS ORDERED: LEVO200T6 PO (14:10)
--- NOTE | 2017-02-08 14:25 | ERA ---
ER Documentation Chief Complaint Date/Time DATE: 02/08/17 TIME: 14:19 Chief Complaint CP with sob x last night HPI This is a 41-year-old female with a past medical history of hypothyroidism, lupus, autoimmune hepatitis and cirrhosis with ascites requiring frequent paracenteses who is now presenting with chest discomfort with deep inspiration, shortness of breath and feeling of significant fullness in her abdomen with distention. The patient's last paracentesis was 1.5 months ago. She says that she gets paracenteses every 1-2 months. She feels that her symptoms are related to her abdominal distention. Patient denies feeling sick recently. She has had no fever or chills. She does endorse some mild generalized headache. She has had no vision changes. She does not feel lightheaded or dizzy. She has not been diaphoretic. She has not had any constant chest pains. She does not feel like someone is sitting on her chest. She denies any significant abdominal pain, but she does feel significantly distended. She has had normal bowel movements urination. She has not noticed any black or bloody or tarry stools. ROS All systems reviewed and are negative except as per history of present illness. Medications Home Meds Active Scripts Oxycodone Hcl* (IR) (Oxycodone Hcl*) 5 Mg Capsule, 5 MG PO Q6 Y for PAIN, #3 TAB 0 Refills Prov:AZ CHOUDHURY MD 02/08/17 Ferrous Sulfate* (Ferrous Sulfate*) 325 Mg Tabec, 325 MG PO BID for 30 Days, TAB Prov:DILLAN JOHNSON NP 12/14/16 Reported Medications Furosemide* (Furosemide*) 20 Mg Tablet, 20 MG PO BID, #30 TAB 02/08/17 Levothyroxine Sodium* (Levothyroxine Sodium*) 200 Mcg Tablet, 275 MCG PO BEFORE BREAKFAST, #30 TAB 02/08/17 Lactulose* (Lactulose*) 20 Gm/30 Ml Solution, 20 GM PO BID, ML 12/14/16 Pantoprazole* (Pantoprazole*) 40 Mg Tablet.dr, 40 MG PO DAILY, TAB 12/13/16 Propranolol Hcl* (Propranolol Hcl*) 10 Mg Tablet, 10 MG PO BID, TAB 10/07/16 Discontinued Scripts Furosemide* (Furosemide*) 20 Mg Tablet, 20 MG PO BID for 30 Days, #30 TAB Prov:DILLAN JOHNSON EX ASSISTANT/PROGRAM DIRECTOR 04/10/16 Levothyroxine Sodium* (Synthroid*) 200 Mcg Tablet, 275 MCG PO BEFORE BREAKFAST, #30 TAB Prov:DILLAN JOHNSON EX ASSISTANT/PROGRAM DIRECTOR 04/10/16 Allergies Allergies: Coded Allergies: No Known Allergy (Unverified , 02/08/17) PMhx/Soc History of Surgery: Yes (left ankle with plate and screw,appendectomy,explor lap) Anesthesia Reaction: No Hx Neurological Disorder: No Hx Respiratory Disorders: No Hx Cardiac Disorders: Yes (heart murmur) Hx Psychiatric Problems: No Hx Miscellaneous Medical Probl: Yes (chr anemia, lupus, AUTOIMMUNE HEPATITIS, CIRRHOSIS, HYPOTHYROIDISM) Hx Alcohol Use: No Hx Substance Use: No Hx Tobacco Use: No Smoking Status: Never smoker FmHx Family History: coronary disease (Father), diabetes (Mother) Physical Exam Vitals Vital Signs Date Time Temp Pulse Resp B/P Pulse Ox O2 Delivery O2 Flow Rate FiO2 02/08/17 16:05 62 14 114/52 100 Room Air 02/08/17 12:47 97.5 83 20 142/65 94 Physical Exam Const: [] Head: Atraumatic Eyes: Normal Conjunctiva ENT: Normal External Ears, Nose and Mouth. Neck: Full range of motion..~ No meningismus. Resp: Clear to auscultation bilaterally Cardio: Regular rate and rhythm, no murmurs Abd: Soft, non tender, non distended. Normal bowel sounds Skin: No petechiae or rashes Back: No midline or flank tenderness Ext: No cyanosis, or edema Neur: Awake and alert Psych: Normal Mood and Affect Result Diagram: 02/08/17 1408 02/08/17 1408 Results 24 hrs Laboratory Tests Test 02/08/17 14:08 02/08/17 17:00 White Blood Count 3.610^3/ul Red Blood Count 4.0710^6/ul Hemoglobin 8.0g/dl Hematocrit 30.5% Mean Corpuscular Volume 74.9fl Mean Corpuscular Hemoglobin 19.7pg Mean Corpuscular Hemoglobin Concent 26.2g/dl Red Cell Distribution Width 18.6% Platelet Count 17359^3/UL Mean Platelet Volume 10.6fl Neutrophils % 63.9% Lymphocytes % 20.4% Monocytes % 10.9% Eosinophils % 3.4% Basophils % 1.1% Nucleated Red Blood Cells % 0.0/100WBC Neutrophils # 2.310^3/ul Lymphocytes # 0.710^3/ul Monocytes # 0.410^3/ul Eosinophils # 0.110^3/ul Basophils # 0.010^3/ul Nucleated Red Blood Cells # 0.010^3/ul Prothrombin Time 15.0Sec Prothrombin Time Ratio 1.2 INR International Normalized Ratio 1.17 Activated Partial Thromboplast Time 39.3Sec Sodium Level 146mmol/L Potassium Level 4.1mmol/L Chloride Level 103mmol/L Carbon Dioxide Level 28mmol/L Anion Gap 19 Blood Urea Nitrogen 12mg/dl Creatinine 0.88mg/dl Glucose Level 87mg/dl Calcium Level 10.3mg/dl Total Bilirubin 1.1mg/dl Direct Bilirubin 0.00mg/dl Indirect Bilirubin 1.1mg/dl Aspartate Amino Transf (AST/SGOT) 37IU/L Alanine Aminotransferase (ALT/SGPT) 30IU/L Alkaline Phosphatase 125IU/L Troponin I < 0.012ng/ml Total Protein 9.2g/dl Albumin 4.4g/dl Globulin 4.80g/dl Albumin/Globulin Ratio 0.91 Lipase 65U/L Urine Color YELLOW Urine Clarity SLIGHTLY CLOUDY Urine pH 5.0 Urine Specific [place] 1.017 Urine Ketones NEGATIVEmg/dL Urine Nitrite NEGATIVEmg/dL Urine Bilirubin NEGATIVEmg/dL Urine Urobilinogen 1+mg/dL Urine Leukocyte Esterase TRACELeu/ul Urine Microscopic RBC 0/HPF Urine Microscopic WBC 10/HPF Urine Squamous Epithelial Cells FEW/HPF Urine Mucus FEW/HPF Urine Hemoglobin NEGATIVEmg/dL Urine Glucose NEGATIVEmg/dL Urine Total Protein NEGATIVEmg/dl Current Medications Medications (Trade) Dose Ordered Sig/Kevin Route PRN Reason Start Time Stop Time Status Last Admin Dose Admin Albumin Human (Albumin Human 25%) 50 ml @ 100 mls/hr ONCE ONCE IV 02/08/17 15:30 02/08/17 15:59 DC 02/08/17 17:05 Lidocaine (Xylocaine 1% (Mpf)) 5 ml STK-MED ONCE .ROUTE 02/08/17 16:01 02/08/17 16:02 DC Procedures/MDM The patient's presenting with abdominal ascites. She has a known history of cirrhosis and requires paracenteses approximately every 1-2 months. Her last paracentesis was 1-1/2 months ago. She does require frequent admissions related to her symptoms and blood work, including shortness of breath related to her abdominal ascites and symptomatic anemia for her last 2 admissions. The patient does appear to require paracentesis today. A cardiac and abdominal workup will be performed as the patient is also describing chest pain with deep breaths. I do suspect that her chest discomfort is associated with her ascites , but a cardiac workup will still be performed. Patient's blood work was obtained and reviewed. She was anemic with hemoglobin of 8.0, but she does not have findings consistent with the symptomatic anemia. She has chronic anemia which is likely associated with anemia of chronic disease. This may be followed up as an outpatient. The patient does not have a leukocytosis or left shift. Her CMP was unremarkable. EKG read by me: Rate/Rhythm: Regular rate and rhythm at a rate of 80 bpm. Intervals: Normal [place]: Normal Poor R-wave progression with nonspecific repolarization abnormalities, Q waves in leads III and aVF concerning for a possible old inferior infarct Impression: No evidence of ischemia or arrhythmia The patient's previous EKG from July of this year was similar to today. Patient's troponin was also negative. The patient has chest discomfort only on deep breaths, and I believe this to be related to his significant abdominal distention. My suspicion for an acute coronary syndrome is low. The patient was ordered a paracentesis at this time. 10 L were taken off. She was given albumin in the emergency department. The patient felt well after the paracentesis. Her chest discomfort and shortness of breath resolved after the procedure. She was ambulatory without any signs of orthostasis. At this time, the patient was stable for discharge. She will follow-up with her primary care physician as well as her home health attendant. She is given precautions with which to return to the emergency department. Departure Diagnosis: Primary Impression: Ascites of liver Additional Impressions: Abdominal distension Shortness of breath Condition: Stable AZ CHOUDHURY MD Feb 08, 2017 14:25
[2017-02-08 14:30] LABS: ABNORMAL IP MESSAGE 1; BASOPHILS % 1.1 % (0.0-2.0); EOSINOPHILS # 0.1 10^3/ul (0.0-0.5); EOSINOPHILS % 3.4 % (0.0-7.0); HEMATOCRIT 30.5 % (37.0-47.0); LYMPHOCYTES # 0.7 10^3/ul (0.8-2.9); LYMPHOCYTES % 20.4 % (15.0-51.0); MEAN CORPUSCULAR HEMOGLOBIN 19.7 pg (29.0-33.0); MEAN CORPUSCULAR HGB CONC 26.2 g/dl (32.0-37.0); MEAN CORPUSCULAR VOLUME 74.9 fl (82.0-101.0); MEAN PLATELET VOLUME 10.6 fl (7.4-10.4); MONOCYTE # 0.4 10^3/ul (0.3-0.9); MONOCYTES % 10.9 % (0.0-11.0); NEUTROPHIL # 2.3 10^3/ul (1.6-7.5); NEUTROPHILS % 63.9 % (39.0-77.0); PLATELET COUNT 140 10^3/UL (140-415); RED BLOOD COUNT 4.07 10^6/ul (4.20-5.40); RED CELL DISTRIBUTION WIDTH 18.6 % (11.5-14.5); WHITE BLOOD COUNT 3.6 10^3/ul (4.8-10.8)
[2017-02-08 14:35] LABS: POSITIVE DIFF @See below
[2017-02-08 14:55] LABS: INR 1.17; PARTIAL THROMBOPLASTIN TIME 39.3 Sec (25.0-35.0); PT RATIO 1.2
[2017-02-08 15:05] LABS: ALANINE AMINOTRANSFERASE 30 IU/L (13-69); ALBUMIN 4.4 g/dl (3.3-4.9); ALBUMIN/GLOBULIN RATIO 0.91; ALKALINE PHOSPHATASE 125 IU/L (42-121); ANION GAP 19 (8-16); ASPARTATE AMINO TRANSFERASE 37 IU/L (15-46); BILIRUBIN,INDIRECT 1.1 mg/dl (0-1.1); BILIRUBIN,TOTAL 1.1 mg/dl (0.2-1.3); BLOOD UREA NITROGEN 12 mg/dl (7-20); CALCIUM 10.3 mg/dl (8.4-10.2); CARBON DIOXIDE 28 mmol/L (21-31); CHLORIDE 103 mmol/L (97-110); CREATININE 0.88 mg/dl (0.44-1.00); GLUCOSE 87 mg/dl (70-220); POTASSIUM 4.1 mmol/L (3.5-5.1); SODIUM 146 mmol/L (135-144); TOTAL PROTEIN 9.2 g/dl (6.1-8.1)
[2017-02-08 15:21] LABS: TROPONIN-I < 0.012 ng/ml (0.00-0.12)
[2017-02-08] MEDS ORDERED: ALBUMIN HUMAN 25% 50 ML IV ONE (15:30)
[2017-02-08] MEDS ORDERED: LIDOCAINE 1% (MPF) 5 ML VIAL ONE (16:01)
[2017-02-08 16:05] VITALS: BP 114/52; PULSE 62; RESP 14
--- NOTE | 2017-02-08 16:07 | RADRPT ---
PROCEDURE: Ultrasound guided paracentesis. CLINICAL INDICATION: Ascites and shortness of breath. COMPARISON: 12/13/2016. TECHNIQUE: The risks, benefits, and alternatives were explained to the patient and/or the patient's family, inc luding but not limited to bleeding, infection, pain, visceral or vascular damage, shock, and . The patient and/or the patient's family understood the risks and the alternatives and wished to pro ceed with the procedure. Informed written consent was obtained. A procedural time out was performed . The patient's name, date of , and procedure to be performed were verified. Utilizing ultrasound guidance, optimal location for entry to the peritoneal cavity was ascertained. The overlying skin was prepped and draped in the usual sterile fashion. Approximately 10 ml of 1% Xylocaine was injected locally for pain control. Using ultrasound guidance, an 8 Stateless catheter wa s introduced into the peritoneal cavity in the right lower quadrant without difficulty. FINDINGS: Initial images demonstrate ascites. Approximately 10.0 liters of serous fluid was aspirated and dis carded. The patient tolerated the procedure well without complication. IMPRESSION: 1. Successful ultrasound-guided paracentesis. RPTAT: QQ .Thomas Talavera MD, Date Time Electronically viewed and signed by .Thomas Talavera MD, on 02/08/2017 16:07 .R/
[2017-02-08] MEDS ORDERED: OXYC5CAP17 PO (17:33)
[2017-02-08 17:39] LABS: ADD UMIC YES; UR ASCORBIC ACID NEGATIVE (NEGATIVE); UR BILIRUBIN (Dip) NEGATIVE (NEGATIVE); UR BLOOD (Dip) NEGATIVE (NEGATIVE); UR CLARITY SLIGHTLY CLOUDY (CLEAR); UR COLOR YELLOW (YELLOW); UR GLUCOSE (Dip) NEGATIVE (NEGATIVE); UR KETONES (Dip) NEGATIVE (NEGATIVE); UR LEUKOCYTE ESTERASE (Dip) TRACE Leu/ul (NEGATIVE); UR MUCUS FEW /HPF (NONE SEEN); UR NITRITE (Dip) NEGATIVE (NEGATIVE); UR RBC 0 /HPF (0-5); UR SPECIFIC GRAVITY (Dip) 1.017 (1.003-1.030); UR SQUAMOUS EPITHELIAL CELL FEW /HPF (FEW); UR TOTAL PROTEIN (Dip) NEGATIVE (NEGATIVE); UR UROBILINOGEN (Dip) 1+ mg/dL (NEGATIVE)
== END 2017-02-08 17:58 | disposition home or self-care (01) ==
LOC: E/R 12:46
DX: K70.31 Alcoholic cirrhosis of liver with ascites (principal); R06.02 Shortness of breath; R14.0 Abdominal distension (gaseous); E03.9 Hypothyroidism, unspecified
CPT/HCPCS: 36415; 80053; 81001; 83690; 84484; 85025; 85610; 85730; 86850; 86870; 86900; 86901; 93005; P9047; Z7502; Z7610

== ENCOUNTER 2017-04-08 08:56 | Emergency (ER) | payer OTHER ==
[~2017-04-08] VITALS: Wt 141.0 kg
[~2017-04-08 08:56] MED LIST changes: +LEVO200T6 PO; +OXYC5CAP17 PO; -SYN2 PO
[2017-04-08 10:00] LABS: INR 1.23; PROTIME 15.6 Sec (12.2-14.2); PT RATIO 1.2
[2017-04-08 10:01] LABS: PARTIAL THROMBOPLASTIN TIME 37.8 Sec (25.0-35.0)
[2017-04-08] MEDS ORDERED: LIDOCAINE 1% (MPF) 5 ML VIAL ONE (12:15)
--- NOTE | 2017-04-08 12:57 | ERD ---
ER Documentation Chief Complaint Date/Time DATE: 04/08/17 TIME: 12:56 Chief Complaint PT HERE FOR PARACENTESIS HPI 41-year-old female presents for paracentesis. She has ascites from autoimmune hepatitis and gets her abdomen drained about once a month. She has an appointment for a delivery table operator next month we will set up outpatient clinic paracenteses. She has no fevers chills or abdominal pain other than stretching generalized pain from her ascites. She has no other complaints that she would like a refill for her Synthroid. ROS All systems reviewed and are negative except as per history of present illness. Medications Home Meds Active Scripts Oxycodone Hcl* (IR) (Oxycodone Hcl*) 5 Mg Capsule, 5 MG PO Q6 Y for PAIN, #3 TAB 0 Refills Prov:AZ CHOUDHURY MD 02/08/17 Ferrous Sulfate* (Ferrous Sulfate*) 325 Mg Tabec, 325 MG PO BID for 30 Days, TAB Prov:DILLAN JOHNSON NP 12/14/16 Reported Medications Furosemide* (Furosemide*) 20 Mg Tablet, 20 MG PO BID, #30 TAB 02/08/17 Levothyroxine Sodium* (Levothyroxine Sodium*) 200 Mcg Tablet, 275 MCG PO BEFORE BREAKFAST, #30 TAB 02/08/17 Lactulose* (Lactulose*) 20 Gm/30 Ml Solution, 20 GM PO BID, ML 12/14/16 Pantoprazole* (Pantoprazole*) 40 Mg Tablet.dr, 40 MG PO DAILY, TAB 12/13/16 Propranolol Hcl* (Propranolol Hcl*) 10 Mg Tablet, 10 MG PO BID, TAB 10/07/16 Allergies Allergies: Coded Allergies: No Known Allergy (Unverified , 02/08/17) PMhx/Soc History of Surgery: Yes (left ankle with plate and screw,appendectomy,explor lap) Anesthesia Reaction: No Hx Neurological Disorder: No Hx Respiratory Disorders: No Hx Cardiac Disorders: Yes (heart murmur) Hx Psychiatric Problems: No Hx Miscellaneous Medical Probl: Yes (chr anemia, lupus, AUTOIMMUNE HEPATITIS, CIRRHOSIS, HYPOTHYROIDISM) Hx Alcohol Use: No Hx Substance Use: No Hx Tobacco Use: No Physical Exam Vitals Vital Signs Date Time Temp Pulse Resp B/P Pulse Ox O2 Delivery O2 Flow Rate FiO2 04/08/17 08:58 98.7 72 19 170/79 95 Physical Exam Const: [] No distress Head: Atraumatic Eyes: Normal Conjunctiva ENT: Normal External Ears, Nose and Mouth. Neck: Full range of motion..~ No meningismus. Resp: Clear to auscultation bilaterally Cardio: Regular rate and rhythm, no murmurs Abd: Soft, non tender, moderate to severe distention with dull to percussion and positive fluid wave,. Normal bowel sounds Skin: No petechiae or rashes Back: No midline or flank tenderness Ext: No cyanosis, or edema Neur: Awake and alert oriented 3, no focal deficits Psych: Normal Mood and Affect Results 24 hrs Laboratory Tests Test 04/08/17 09:28 Prothrombin Time 15.6Sec Prothrombin Time Ratio 1.2 INR International Normalized Ratio 1.23 Activated Partial Thromboplast Time 37.8Sec Current Medications Medications (Trade) Dose Ordered Sig/Kevin Route PRN Reason Start Time Stop Time Status Last Admin Dose Admin Lidocaine (Xylocaine 1% (Mpf)) 5 ml STK-MED ONCE .ROUTE 04/08/17 12:15 04/08/17 12:16 DC 04/08/17 12:21 Departure Diagnosis: Primary Impression: Ascites Additional Impression: Autoimmune hepatitis KAMALA COELLO DO Apr 08, 2017 12:57
[2017-04-08 13:39] VITALS: BP 132/77; PULSE 76; RESP 20; TEMP 98.3
--- NOTE | 2017-04-08 13:41 | RADRPT ---
PROCEDURE: Ultrasound guided paracentesis. CLINICAL INDICATION: Ascites and shortness of breath. COMPARISON: 02/08/2017. TECHNIQUE: The risks, benefits, and alternatives were explained to the patient and/or the patient's family, inc luding but not limited to bleeding, infection, pain, visceral or vascular damage, shock, and . The patient and/or the patient's family understood the risks and the alternatives and wished to pro ceed with the procedure. Informed written consent was obtained. A procedural time out was performed . The patient's name, date of , and procedure to be performed were verified. Utilizing ultrasound guidance, optimal location for entry to the peritoneal cavity was ascertained. The overlying skin was prepped and draped in the usual sterile fashion. Approximately 10 ml of 1% Xylocaine was injected locally for pain control. Using ultrasound guidance, an 8 [place] catheter wa s introduced into the peritoneal cavity in the left lower quadrant without difficulty. FINDINGS: Initial images demonstrate ascites. Approximately 10.0 liters of serous fluid was aspirated and dis carded. The patient tolerated the procedure well without complication. IMPRESSION: 1. Successful ultrasound-guided paracentesis. RPTAT: QQ .Thomas Talavera MD, Date Time Electronically viewed and signed by .Thomas Talavera MD, on 04/08/2017 13:41 .R/
== END 2017-04-08 13:40 | disposition home or self-care (01) ==
LOC: E/R 08:56
DX: R18.8 Other ascites (principal); R40.2252 Coma scale, best verbal response, oriented, at arrival to emergency department; K75.4 Autoimmune hepatitis; E03.9 Hypothyroidism, unspecified; R40.2142 Coma scale, eyes open, spontaneous, at arrival to emergency department; R40.2362 Coma scale, best motor response, obeys commands, at arrival to emergency department
CPT/HCPCS: 36415; 85049; 85610; 85730; Z7502; Z7610

== ENCOUNTER 2017-04-27 12:12 | Emergency (ER) | payer OTHER ==
[~2017-04-27] VITALS: Ht 167.6 cm; Wt 140.0 kg
[2017-04-27 12:13] VITALS: Ht 167.6 cm; Wt 140.0 kg
[2017-04-27] MEDS ORDERED: KETOROLAC 15 MG INJ IV STA (16:35)
[2017-04-27] MEDS ORDERED: LIDOCAINE 1% (MPF) 5 ML VIAL ONE (17:31)
--- NOTE | 2017-04-27 17:34 | RADRPT ---
PROCEDURE: Ultrasound guided paracentesis. CLINICAL INDICATION: Ascites and shortness of breath. COMPARISON: 04/08/2017. TECHNIQUE: The risks, benefits, and alternatives were explained to the patient and/or the patient's family, inc luding but not limited to bleeding, infection, pain, visceral or vascular damage, shock, and . The patient and/or the patient's family understood the risks and the alternatives and wished to pro ceed with the procedure. Informed written consent was obtained. A procedural time out was performed . The patient's name, date of , and procedure to be performed were verified. Utilizing ultrasound guidance, optimal location for entry to the peritoneal cavity was ascertained. The overlying skin was prepped and draped in the usual sterile fashion. Approximately 10 ml of 1% Xylocaine was injected locally for pain control. Using ultrasound guidance, an 8 [place] catheter wa s introduced into the peritoneal cavity in the the lower quadrant with difficulty due to thick abdom inal wall soft tissues. FINDINGS: Initial images demonstrate ascites. Approximately 0.200 liters of serous fluid was aspirated and di scarded. The patient tolerated the procedure well without complication. A small amount of free fluid remains in the abdomen following the paracentesis. IMPRESSION: 1. Ultrasound -guided paracentesis. 2. A small amount of free fluid remains in the abdomen following the paracentesis. RPTAT: QQ .Thomas Talavera MD, Date Time Electronically viewed and signed by .Thomas Talavera MD, on 04/27/2017 17:33 .R/
[2017-04-27] MEDS ORDERED: KETOROLAC 30 MG INJ IM STA (17:52)
[2017-04-27 18:15] VITALS: BP 122/70; PULSE 88; RESP 18; TEMP 98
--- NOTE | 2017-04-27 23:54 | ERD ---
ER Documentation Chief Complaint Chief Complaint LT SIDE ABD PAIN WITH FLUID RETENTION, DIZZINESS, SOB HPI 41-year-old woman has complaints of abdominal pain and ascites, she usually undergoes paracentesis about once per month and last time was about 3 weeks ago. She states she also has an abdominal hernia for the last 10 years which has been hurting her. Also states she has a history of anemia and previous transfusions with recent complaints of dizziness but no loss of consciousness or near syncopal episodes. She denies dysuria, no fevers or chills, no chest pain or shortness of breath, no headache or blurry vision ROS All systems reviewed and are negative except as per history of present illness. Medications Home Meds Active Scripts Oxycodone Hcl* (IR) (Oxycodone Hcl*) 5 Mg Capsule, 5 MG PO Q6 Y for PAIN, #3 TAB 0 Refills Prov:AZ CHOUDHURY MD 02/08/17 Ferrous Sulfate* (Ferrous Sulfate*) 325 Mg Tabec, 325 MG PO BID for 30 Days, TAB Prov:DILLAN JOHNSON NP 12/14/16 Reported Medications Furosemide* (Furosemide*) 20 Mg Tablet, 20 MG PO BID, #30 TAB 02/08/17 Levothyroxine Sodium* (Levothyroxine Sodium*) 200 Mcg Tablet, 275 MCG PO BEFORE BREAKFAST, #30 TAB 02/08/17 Lactulose* (Lactulose*) 20 Gm/30 Ml Solution, 20 GM PO BID, ML 12/14/16 Pantoprazole* (Pantoprazole*) 40 Mg Tablet.dr, 40 MG PO DAILY, TAB 12/13/16 Propranolol Hcl* (Propranolol Hcl*) 10 Mg Tablet, 10 MG PO BID, TAB 10/07/16 Allergies Allergies: Coded Allergies: No Known Allergy (Unverified , 02/08/17) PMhx/Soc Obesity, anemia, gastritis, abdominal hernia, cirrhosis, hypothyroidism, ascites , hypertension History of Surgery: Yes (left ankle with plate and screw,appendectomy,explor lap) Anesthesia Reaction: No Hx Neurological Disorder: No Hx Respiratory Disorders: No Hx Cardiac Disorders: Yes (heart murmur) Hx Psychiatric Problems: No Hx Miscellaneous Medical Probl: Yes (chr anemia, lupus, AUTOIMMUNE HEPATITIS, CIRRHOSIS, HYPOTHYROIDISM) Hx Alcohol Use: No Hx Substance Use: No Hx Tobacco Use: No Smoking Status: Never smoker FmHx Family History: No diabetes Physical Exam Vitals Vital Signs Date Time Temp Pulse Resp B/P Pulse Ox O2 Delivery O2 Flow Rate FiO2 04/27/17 18:15 98.0 88 18 122/70 95 Room Air 04/27/17 16:30 98.3 82 18 138/68 94 Room Air 04/27/17 12:13 98.3 72 20 140/65 93 Physical Exam GENERAL: Well-developed, well-nourished, well-hydrated, in no apparent distress , looks nontoxic in appearance HEENT: Moist mucous membranes, pink conjunctiva, no cervical spine tenderness or step-off deformities, no goiter, no jaundice or icterus, extraocular movements intact without pain. No submandibular induration, and no pharyngeal erythema NEURO: Alert and oriented 3, cranial nerves II through XII intact bilaterally, pupils equal round reactive to light, no focal deficits or facial asymmetry, sensation intact distally Strength 5/5 in upper and lower extremities bilaterally CARDIAC: Regular rate and rhythm, no murmurs rubs or gallops LUNGS: Clear bilaterally no wheezing crackles or stridor ABDOMEN: Grossly distended abdomen, protuberant, soft, no rigidity or rebound, no skin ecchymosis noted SKIN: Warm and dry to touch, no abrasions, contusions, or hematomas, no lacerations, no ecchymosis, no target lesions, and without ulcers EXTREMITIES: No clubbing cyanosis or edema, calves are bilaterally symmetrical, no Homans sign, no popliteal cord sign. Distal pulses equal and bilateral PSYCH: Normal affect without agitation or irritability Results 24 hrs Current Medications Medications (Trade) Dose Ordered Sig/Kevin Route PRN Reason Start Time Stop Time Status Last Admin Dose Admin Ketorolac Tromethamine (Toradol) 15 mg ONCE STAT IV 04/27/17 16:35 04/27/17 16:36 DC Lidocaine (Xylocaine 1% (Mpf)) 5 ml STK-MED ONCE .ROUTE 04/27/17 17:31 04/27/17 17:32 DC Ketorolac Tromethamine (Toradol) 30 mg ONCE STAT IM 04/27/17 17:52 04/27/17 17:53 DC Procedures/MDM Patient underwent paracentesis but only 200 mL's of fluid was removed. Her abdominal examination is unremarkable and she has had hernia and hernia pain for over 10 years. She has not yet spoken or been evaluated by a surgeon so I recommended outpatient surgical consultation. For complaints of pain I administered Toradol 15 mg IM 1. The patient has pink mucous membranes and has normal vital signs and I recommended she follow-up with her PMD for regular CBC checks to rule out severe anemia. Differential diagnoses considered, included but not limited to acute coronary syndrome, pulmonary embolism, aortic dissection, abdominal aortic aneurysm, sepsis, stroke, meningitis, encephalitis, pneumonia, appendicitis, cholecystitis , bowel obstruction, pyelonephritis, nephrolithiasis, cystitis, as well as metabolic, hematologic, and electrolyte abnormalities. As well as abscess, cellulitis, fractures, and dislocations. Patient feels much better at this time, and vital signs are normal, symptoms have improved. I did give strict instructions to return to the ED if symptoms continue or worsen, patient will otherwise follow-up with primary care physician. Patient understood instructions and agreed to plan. Disclaimer: Inadvertent spelling and grammatical errors are likely due to EHR/ dictation software use and do not reflect on the overall quality of patient care. Also, please note that the electronic time recorded on this note does not necessarily reflect the actual time of the patient encounter. Departure Diagnosis: Primary Impression: Ascites Ascites type: due to alcoholic cirrhosis Qualified Code: K70.31 - Ascites due to alcoholic cirrhosis Additional Impressions: Anemia Anemia type: unspecified type Qualified Code: D64.9 - Anemia, unspecified type Abdominal hernia Hernia type: unspecified Obstruction and gangrene presence: without obstruction or gangrene Recurrence: recurrent Qualified Code: K45.8 - Recurrent abdominal hernia without obstruction or gangrene, unspecified hernia type Condition: Good Patient Instructions: Ascites, Hernia (Inguinal, Ventral, Umbilical) Referrals: JOSH JAIME MD, KAMBIZ M.D. RENNER, ANDREW I MD ZOHRABIAN, DAVID MD Apr 27, 2017 23:54
== END 2017-04-27 19:08 | disposition home or self-care (01) ==
LOC: E/R 12:12
DX: K70.31 Alcoholic cirrhosis of liver with ascites (principal); D64.9 Anemia, unspecified; K45.8 Other specified abdominal hernia without obstruction or gangrene; E66.9 Obesity, unspecified; I10 Essential (primary) hypertension; E03.9 Hypothyroidism, unspecified; Z68.42 Body mass index [BMI] 45.0-49.9, adult
CPT/HCPCS: J1885; Z7502; Z7610

== ENCOUNTER 2017-05-03 11:50 | Emergency (ER) | payer OTHER ==
[~2017-05-03] VITALS: Wt 142.7 kg
--- NOTE | 2017-05-03 13:06 | ERD ---
ER Documentation Chief Complaint Chief Complaint PT HERE FOR PARACENTESIS, ALSO RIGHT WRIST/KNEE PAIN S/P GLF 1 WEEK AGO HPI This is a 41-year-old female with a past medical history of lupus, hypothyroidism, autoimmune hepatitis, chronic recurrent ascites requiring frequent paracenteses, last paracentesis earlier and the month of April 2017, now presenting with 1 week of progressive worsening abdominal distention, discomfort and mild shortness of breath. The patient notes that she starts to feel short of breath when her abdominal ascites becomes moderate to severe. She describes her shortness of breath as mild at this time. The patient notes that she actually came to the emergency department on April 27 with the hopes of obtaining a paracentesis, but unfortunately they were unable to do so at that time. The patient does not endorse feeling sick. She has had no fever or chills. She has had no nausea or vomiting. She denies any chest pain. She does report that she has a long-standing abdominal hernia that is uncomfortable , but she does not endorse any abdominal pain today. She does not endorse any changes to bowel movements or urination. The patient has a secondary complaint of right extremity soreness and aching since a fall approximately 1 week ago as well. She states that she was walking when her knee excellently buckled and she fell on her right side landing on her right wrist and right knee. She also notes that she rolled her ankle. She has had pain and discomfort to these joints over the last week and would like them to be evaluated. He has been ambulatory since the incident. She is able to range these joints fully without limitation. She denies any focal deficits. She has had no weakness or numbness or tingling to the face or extremities. ROS All systems reviewed and are negative except as per history of present illness. Medications Home Meds Active Scripts Ferrous Sulfate* (Ferrous Sulfate*) 325 Mg Tabec, 325 MG PO BID for 30 Days, TAB Prov:DILLAN JOHNSON [employer] 12/14/16 Reported Medications Spironolactone* (Aldactone*) 25 Mg Tablet, 25 MG PO DAILY, #30 TAB 05/03/17 Furosemide* (Furosemide*) 20 Mg Tablet, 20 MG PO BID, #30 TAB 02/08/17 Levothyroxine Sodium* (Levothyroxine Sodium*) 200 Mcg Tablet, 275 MCG PO BEFORE BREAKFAST, #30 TAB 02/08/17 Lactulose* (Lactulose*) 20 Gm/30 Ml Solution, 20 GM PO BID, ML 12/14/16 Pantoprazole* (Pantoprazole*) 40 Mg Tablet.dr, 40 MG PO DAILY, TAB 12/13/16 Propranolol Hcl* (Propranolol Hcl*) 10 Mg Tablet, 10 MG PO BID, TAB 10/07/16 Discontinued Reported Medications Spironolactone* (Spironolactone*) 100 Mg Tablet, 100 MG PO DAILY, TAB 05/03/17 Discontinued Scripts Oxycodone Hcl* (IR) (Oxycodone Hcl*) 5 Mg Capsule, 5 MG PO Q6 Y for PAIN, #3 TAB 0 Refills Prov:AZ CHOUDHURY MD 02/08/17 Allergies Allergies: Coded Allergies: No Known Allergy (Unverified , 02/08/17) PMhx/Soc History of Surgery: Yes (left ankle with plate and screw,appendectomy,explor lap) Anesthesia Reaction: No Hx Neurological Disorder: No Hx Respiratory Disorders: No Hx Cardiac Disorders: Yes (heart murmur) Hx Psychiatric Problems: No Hx Miscellaneous Medical Probl: Yes (chr anemia, lupus, AUTOIMMUNE HEPATITIS, CIRRHOSIS, HYPOTHYROIDISM) Hx Alcohol Use: No Hx Substance Use: No Hx Tobacco Use: No Smoking Status: Never smoker FmHx Family History: No diabetes Physical Exam Vitals Vital Signs Date Time Temp Pulse Resp B/P Pulse Ox O2 Delivery O2 Flow Rate FiO2 05/03/17 15:59 98.3 70 18 103/55 100 Room Air 05/03/17 14:44 60 18 106/60 100 Room Air 05/03/17 11:56 97.3 61 18 171/93 98 Physical Exam Const: No apparent distress, well-developed, well-nourished Head: Atraumatic Eyes: Normal Conjunctiva. Extraocular movements intact. ENT: Normal External Ears, Nose and Mouth. Neck: Full range of motion. ~ No meningismus. Resp: Clear to auscultation bilaterally Cardio: Regular rate and rhythm, no murmurs Abd: Morbid obesity, distended, positive fluid shift indicating ascites, nontender reducible midline abdominal hernia. Normal bowel sounds Skin: No petechiae or rashes Back: No midline or flank tenderness Ext: No cyanosis, or edema. Full range of motion to all extremity joints. Radial and DP pulses are strong bilaterally. Tenderness to the right wrist, right lateral knee and right anterior lateral ankle. Patient is ambulatory with an antalgic gait. Neur: Awake and alert, oriented 4. Cranial nerves intact. No facial droop. Normal strength and sensation in all extremities. Psych: Normal Mood and Affect Result Diagram: 05/03/17 1255 05/03/17 1255 Results 24 hrs Laboratory Tests Test 05/03/17 12:55 05/03/17 13:25 White Blood Count 3.410^3/ul Red Blood Count 4.1610^6/ul Hemoglobin 7.9g/dl Hematocrit 31.7% Mean Corpuscular Volume 76.2fl Mean Corpuscular Hemoglobin 19.0pg Mean Corpuscular Hemoglobin Concent 24.9g/dl Red Cell Distribution Width 19.8% Platelet Count 35155^3/UL Mean Platelet Volume 10.8fl Neutrophils % 64.0% Lymphocytes % 20.8% Monocytes % 9.5% Eosinophils % 3.9% Basophils % 0.9% Nucleated Red Blood Cells % 0.0/100WBC Neutrophils # 2.210^3/ul Lymphocytes # 0.710^3/ul Monocytes # 0.310^3/ul Eosinophils # 0.110^3/ul Basophils # 0.010^3/ul Nucleated Red Blood Cells # 0.010^3/ul Sodium Level 142mmol/L Potassium Level 4.7mmol/L Chloride Level 105mmol/L Carbon Dioxide Level 24mmol/L Anion Gap 18 Blood Urea Nitrogen 11mg/dl Creatinine 0.83mg/dl Glucose Level 77mg/dl Calcium Level 9.8mg/dl Total Bilirubin 1.1mg/dl Direct Bilirubin 0.00mg/dl Indirect Bilirubin 1.1mg/dl Aspartate Amino Transf (AST/SGOT) 51IU/L Alanine Aminotransferase (ALT/SGPT) 27IU/L Alkaline Phosphatase 105IU/L Total Protein 8.2g/dl Albumin 4.4g/dl Globulin 3.80g/dl Albumin/Globulin Ratio 1.15 Prothrombin Time 14.7Sec Prothrombin Time Ratio 1.1 INR International Normalized Ratio 1.15 Activated Partial Thromboplast Time 37.1Sec Current Medications Medications (Trade) Dose Ordered Sig/Kevin Route PRN Reason Start Time Stop Time Status Last Admin Dose Admin Lidocaine (Xylocaine 1% (Mpf)) 5 ml STK-MED ONCE .ROUTE 05/03/17 15:31 05/03/17 15:32 DC 05/03/17 15:33 Procedures/[facility] The patient's presentation warrants further investigation. Patient presents with concerns of increasing ascites requiring a paracentesis. The patient will be evaluated for stability for paracentesis. If deemed stable, paracentesis will be attempted under ultrasound guidance with interventional radiology. The patient has a secondary complaint of right-sided wrist, knee and ankle pain after a fall a week ago. X-rays will be performed for evaluation of this, but I have lower suspicion for fracture dislocation. LABS The patient's blood work was obtained and reviewed. The patient's CBC shows leukopenia without shift. This is the patient's baseline. The patient is afebrile and does not appear systemically ill. I do not suspect a systemic infection. The patient does have a microcytic anemia, which is also chronic for her. Her hemoglobin is 7.9, which does not require emergent treatment. The patient needs to follow-up with her doctor regarding anemia of chronic disease versus iron deficient anemia. The patient does not have active bleeding , and I do not suspect an acute blood loss anemia. The patient's CMP shows no signs of emergent metabolic or electrolyte abnormality. The patient has unremarkable renal and hepatic function testing. The patient's PT, PTT and INR are also unremarkable. IMAGING XR Right Ankle FINDINGS: Mild deformity of the distal fibula is identified and may reflect old , healed trauma. The osseous structures appear intact. No destructive bony lesions are observed. Interosseous spaces appear normal. Small plantar calcaneal heel spur is seen. Potential soft tissue swelling is seen surrounding the ankle. IMPRESSION: Soft tissue swelling surrounding the ankle. Ligamentous and tendinous injury is not excluded. If characterization of the ligaments and tendons is needed MRI is recommended. Mild deformity of the distal fibula that may be related to old, healed trauma. Plantar calcaneal heel spur. If there is high clinical suspicion for acute bony traumatic injury, further evaluation with CT should be considered. Electronically viewed and signed by .Chilo Santa MD, on 05/03/2017 13:50 XR Right Knee FINDINGS: The osseous structures are intact. No destructive bony lesions are observed. Mild to moderate narrowing of the lateral joint compartment of the knee is seen. Small suprapatellar joint effusion is identified. IMPRESSION: Small suprapatellar joint effusion. Ligamentous and tendinous injury is not excluded. If characterization of the ligaments and tendons is needed MRI is recommended. 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 If there is high clinical suspicion for bony traumatic injury, further evaluation with CT should be considered. Electronically viewed and signed by .Chilo Santa MD, MD on 05/03/2017 13:49 XR Right Wrist FINDINGS: The osseous structures are intact. No destructive bony lesions are identified. Interosseous spaces are normal. Soft tissues surrounding the wrist are unremarkable. IMPRESSION: No visualized traumatic injury. If there is high clinical suspicion for traumatic injury, further evaluation with CT should be considered. Electronically viewed and signed by .Chilo Santa MD, MD on 05/03/2017 13:48 TREATMENT/DISPOSITION The patient was cleared for paracentesis and one was attempted an IR under ultrasound guidance. This was done successfully without complication. The patient remained stable during observation after the procedure in the emergency department. The patient did not have tibial or fibular tenderness to her right ankle. Her tenderness is isolated to the anterior soft tissues of the foot. I do suspect possible ligamentous injury, however, the patient is ambulatory without significant pain. I have low suspicion for a fracture dislocation. The patient will be given an Leonel wrap, and she may use crutches if desired. However , the patient may ambulate as able. The patient does have swelling to the right knee as well and an Leonel bandage was also provided here as well for comfort. The patient may follow-up with orthopedics as an outpatient if her symptoms continue. She should follow-up with her primary care physician first. I do not see any obvious joint instability. The patient's wrist x-ray was unremarkable. The patient has a hepatology appointment coming up. She understands the need to discuss the possibility of scheduled paracentesis given the frequency of her need for the procedure. At this time, I feel that the patient stable for discharge. He will need follow -up with his primary care physician in 2-3 days. He will be given strict precautions with which to return to the emergency department. Departure Diagnosis: Primary Impression: Ascites Ascites type: other type Qualified Code: R18.8 - Other ascites Additional Impressions: Right wrist sprain Encounter type: subsequent encounter Qualified Code: S63.501D - Sprain of right wrist, subsequent encounter Right knee sprain Encounter type: subsequent encounter Involved ligament of knee: unspecified ligament Qualified Code: S83.91XD - Sprain of right knee, unspecified ligament , subsequent encounter Right ankle sprain Encounter type: subsequent encounter Involved ligament of ankle: unspecified ligament Qualified Code: S93.401D - Sprain of right ankle, unspecified ligament, subsequent encounter Condition: AZ Salter MD May 03, 2017 13:05
[2017-05-03 13:08] LABS: ABNORMAL IP MESSAGE 1; BASOPHILS % 0.9 % (0.0-2.0); EOSINOPHILS # 0.1 10^3/ul (0.0-0.5); EOSINOPHILS % 3.9 % (0.0-7.0); HEMATOCRIT 31.7 % (37.0-47.0); HEMOGLOBIN 7.9 g/dl (12.0-16.0); LYMPHOCYTES # 0.7 10^3/ul (0.8-2.9); LYMPHOCYTES % 20.8 % (15.0-51.0); MEAN CORPUSCULAR HGB CONC 24.9 g/dl (32.0-37.0); MEAN CORPUSCULAR VOLUME 76.2 fl (82.0-101.0); MEAN PLATELET VOLUME 10.8 fl (7.4-10.4); MONOCYTE # 0.3 10^3/ul (0.3-0.9); MONOCYTES % 9.5 % (0.0-11.0); NEUTROPHIL # 2.2 10^3/ul (1.6-7.5); PLATELET COUNT 129 10^3/UL (140-415); POSITIVE DIFF @See below; RED BLOOD COUNT 4.16 10^6/ul (4.20-5.40); RED CELL DISTRIBUTION WIDTH 19.8 % (11.5-14.5); WHITE BLOOD COUNT 3.4 10^3/ul (4.8-10.8)
[2017-05-03 13:29] LABS: ALBUMIN 4.4 g/dl (3.3-4.9); ALBUMIN/GLOBULIN RATIO 1.15; BILIRUBIN,INDIRECT 1.1 mg/dl (0-1.1); BILIRUBIN,TOTAL 1.1 mg/dl (0.2-1.3); CALCIUM 9.8 mg/dl (8.4-10.2); CREATININE 0.83 mg/dl (0.44-1.00); POTASSIUM 4.7 mmol/L (3.5-5.1); TOTAL PROTEIN 8.2 g/dl (6.1-8.1)
[2017-05-03] MEDS ORDERED: SPIR100T31 PO (13:38)
[2017-05-03] MEDS ORDERED: SPIR25TA PO (13:39)
--- NOTE | 2017-05-03 13:48 | RADRPT ---
PROCEDURE: XR Wrist. CLINICAL INDICATION: Right wrist pain and trauma. TECHNIQUE: AP, oblique, scaphoid and lateral views of the right wrist were performed. COMPARISON: No prior studies are available for comparison. FINDINGS: The osseous structures are intact. No destructive bony lesions are identified. Interosseous spaces are normal. Soft tissues surrounding the wrist are unremarkable. IMPRESSION: No visualized traumatic injury. If there is high clinical suspicion for traumatic injury, further evaluation with CT should be consi dered. RPTAT: AA .Chilo Santa MD, Date Time Electronically viewed and signed by .Chilo Santa MD, on 05/03/2017 13:48 .P/
--- NOTE | 2017-05-03 13:49 | RADRPT ---
PROCEDURE: XR Knee 3 Views. CLINICAL INDICATION: Right knee pain and trauma. TECHNIQUE: AP, lateral and tunnel view of the right knee were obtained. The images reviewed on a PACS workstation. COMPARISON: None. FINDINGS: The osseous structures are intact. No destructive bony lesions are observed. Mild to moderate narr owing of the lateral joint compartment of the knee is seen. Small suprapatellar joint effusion is i dentified. IMPRESSION: Small suprapatellar joint effusion. Ligamentous and tendinous injury is not excluded. If characteri zation of the ligaments and tendons is needed MRI is recommended. 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 If there is high clinical suspicion for bony traumatic injury, further evaluation with CT should be considered. RPTAT: AA .Chilo Santa MD, Date Time Electronically viewed and signed by .Chilo Santa MD, MD on 05/03/2017 13:49 .P/
--- NOTE | 2017-05-03 13:50 | RADRPT ---
PROCEDURE: XR Right Ankle 3 Views. CLINICAL INDICATION: Right ankle pain and trauma. TECHNIQUE: AP, oblique and lateral views of the right ankle was performed. COMPARISON: None. FINDINGS: Mild deformity of the distal fibula is identified and may reflect old, healed trauma. The osseous st ructures appear intact. No destructive bony lesions are observed. Interosseous spaces appear marie l. Small plantar calcaneal heel spur is seen. Potential soft tissue swelling is seen surrounding the ankle. IMPRESSION: Soft tissue swelling surrounding the ankle. Ligamentous and tendinous injury is not excluded. If ch aracterization of the ligaments and tendons is needed MRI is recommended. Mild deformity of the distal fibula that may be related to old, healed trauma. Plantar calcaneal heel spur. If there is high clinical suspicion for acute bony traumatic injury, further evaluation with CT shou ld be considered. RPTAT: AA .Chilo Santa MD, Date Time Electronically viewed and signed by .Chilo Santa MD, on 05/03/2017 13:50 .P/
[2017-05-03 13:56] LABS: INR 1.15; PROTIME 14.7 Sec (12.2-14.2); PT RATIO 1.1
[2017-05-03 13:57] LABS: PARTIAL THROMBOPLASTIN TIME 37.1 Sec (25.0-35.0)
[2017-05-03] MEDS ORDERED: LIDOCAINE 1% (MPF) 5 ML VIAL ONE (15:31)
[2017-05-03 15:59] VITALS: BP 103/55; PULSE 70; RESP 18; TEMP 98.3
--- NOTE | 2017-05-03 16:18 | RADRPT ---
PROCEDURE: Ultrasound guided paracentesis. CLINICAL INDICATION: Ascites and shortness of breath. COMPARISON: 04/27/2017. TECHNIQUE: The risks, benefits, and alternatives were explained to the patient and/or the patient's family, inc luding but not limited to bleeding, infection, pain, visceral or vascular damage, shock, and . The patient and/or the patient's family understood the risks and the alternatives and wished to pro ceed with the procedure. Informed written consent was obtained. A procedural time out was performed . The patient's name, date of , and procedure to be performed were verified. Utilizing ultrasound guidance, optimal location for entry to the peritoneal cavity was ascertained. The overlying skin was prepped and draped in the usual sterile fashion. Approximately 10 ml of 1% Xylocaine was injected locally for pain control. Using ultrasound guidance, an 8 Chinese catheter wa s introduced into the peritoneal cavity in the left lower quadrant without difficulty. FINDINGS: Initial images demonstrate ascites. Approximately 10.0 liters of serous fluid was aspirated and dis carded. The patient tolerated the procedure well without complication. IMPRESSION: 1. Successful ultrasound-guided paracentesis. RPTAT: QQ .Thomas Talavera MD, Date Time Electronically viewed and signed by .Thomas Talavera MD, on 05/03/2017 16:18 .R/
== END 2017-05-03 16:00 | disposition home or self-care (01) ==
LOC: E/R 11:50
DX: R18.8 Other ascites (principal); S63.501D Unspecified sprain of right wrist, subsequent encounter; S83.91XD Sprain of unspecified site of right knee, subsequent encounter; S93.401D Sprain of unspecified ligament of right ankle, subsequent encounter; E03.9 Hypothyroidism, unspecified; R10.9 Unspecified abdominal pain; W18.39XD Other fall on same level, subsequent encounter
CPT/HCPCS: 73110; 73562; 73610; 80053; 85025; 85610; 85730; Z7502; Z7610

== ENCOUNTER 2017-05-25 12:20 | Emergency (ER) | payer OTHER ==
[~2017-05-25] VITALS: Wt 140.6 kg
[~2017-05-25 12:20] MED LIST changes: -OXYC5CAP17 PO; +SPIR25TA PO
[2017-05-25 14:01] LABS: ABNORMAL IP MESSAGE 1; BASOPHILS % 0.6 % (0.0-2.0); EOSINOPHILS # 0.1 10^3/ul (0.0-0.5); HEMATOCRIT 31.3 % (37.0-47.0); LYMPHOCYTES # 0.7 10^3/ul (0.8-2.9); LYMPHOCYTES % 22.8 % (15.0-51.0); MEAN CORPUSCULAR HEMOGLOBIN 18.9 pg (29.0-33.0); MEAN CORPUSCULAR HGB CONC 25.6 g/dl (32.0-37.0); MEAN PLATELET VOLUME 9.7 fl (7.4-10.4); MONOCYTE # 0.3 10^3/ul (0.3-0.9); MONOCYTES % 10.2 % (0.0-11.0); NEUTROPHILS % 61.5 % (39.0-77.0); PLATELET COUNT 152 10^3/UL (140-415); RED BLOOD COUNT 4.23 10^6/ul (4.20-5.40); RED CELL DISTRIBUTION WIDTH 19.2 % (11.5-14.5); WHITE BLOOD COUNT 3.3 10^3/ul (4.8-10.8)
[2017-05-25 14:06] LABS: POSITIVE DIFF @See below
[2017-05-25 14:16] LABS: INR 1.23; PROTIME 15.6 Sec (12.2-14.2); PT RATIO 1.2
[2017-05-25 14:17] LABS: PARTIAL THROMBOPLASTIN TIME 36.5 Sec (25.0-35.0)
[2017-05-25 14:22] LABS: IRON 23 ug/dl (35-150)
[2017-05-25 14:23] LABS: ALBUMIN 4.3 g/dl (3.3-4.9); CALCIUM 10.4 mg/dl (8.4-10.2); CREATININE 0.78 mg/dl (0.44-1.00); POTASSIUM 4.3 mmol/L (3.5-5.1); TOTAL PROTEIN 8.6 g/dl (6.1-8.1)
[2017-05-25 14:31] LABS: TOTAL IRON BINDING CAPACITY 433 ug/dl (241-421)
[2017-05-25] MEDS ORDERED: LIDOCAINE 1% (MPF) 5 ML VIAL ONE (17:57)
[2017-05-25 18:02] VITALS: BP 117/60; PULSE 68; RESP 20; TEMP 98.5
--- NOTE | 2017-05-25 18:23 | ERD ---
ER Documentation Chief Complaint Chief Complaint per pt has gained ~20lbs since the last paracentesis 3wks ago; req. paracen HPI Patient is a 41-year-old female with cirrhosis and ascites who presents with ascites. The patient went to her liver doctor yesterday who sent to the ER to get a paracentesis and have labs done. The patient has had a paracentesis every 3 weeks for the last few months. She said that she started swelling 3 weeks ago after her last paracentesis. She denies abdominal pain and denies fevers. Upon review of old medical records the patient has multiple visits to ER with ascites. ROS All systems reviewed and are negative except as per history of present illness. Medications Home Meds Active Scripts Ferrous Sulfate* (Ferrous Sulfate*) 325 Mg Tabec, 325 MG PO BID for 30 Days, TAB Prov:DILLAN JOHNSON EDGE DYER 12/14/16 Reported Medications Spironolactone* (Aldactone*) 25 Mg Tablet, 25 MG PO DAILY, #30 TAB 05/03/17 Furosemide* (Furosemide*) 20 Mg Tablet, 20 MG PO BID, #30 TAB 02/08/17 Levothyroxine Sodium* (Levothyroxine Sodium*) 200 Mcg Tablet, 275 MCG PO BEFORE BREAKFAST, #30 TAB 02/08/17 Lactulose* (Lactulose*) 20 Gm/30 Ml Solution, 20 GM PO BID, ML 12/14/16 Pantoprazole* (Pantoprazole*) 40 Mg Tablet.dr, 40 MG PO DAILY, TAB 12/13/16 Propranolol Hcl* (Propranolol Hcl*) 10 Mg Tablet, 10 MG PO BID, TAB 10/07/16 Allergies Allergies: Coded Allergies: No Known Allergy (Unverified , 02/08/17) PMhx/Soc History of Surgery: Yes (left ankle with plate and screw,appendectomy,explor lap) Anesthesia Reaction: No Hx Neurological Disorder: No Hx Respiratory Disorders: No Hx Cardiac Disorders: Yes (heart murmur) Hx Psychiatric Problems: No Hx Miscellaneous Medical Probl: Yes (chr anemia, lupus, AUTOIMMUNE HEPATITIS, CIRRHOSIS, HYPOTHYROIDISM) Hx Alcohol Use: No Hx Substance Use: No Hx Tobacco Use: No Smoking Status: Never smoker FmHx Family History: diabetes Physical Exam Vitals Vital Signs Date Time Temp Pulse Resp B/P Pulse Ox O2 Delivery O2 Flow Rate FiO2 05/25/17 18:02 98.5 68 20 117/60 98 Room Air 05/25/17 12:25 98.5 71 20 132/74 94 Physical Exam Const: No acute distress Head: Atraumatic Eyes: Normal Conjunctiva ENT: Normal External Ears, Nose and Mouth. Neck: Full range of motion..~ No meningismus. Resp: Clear to auscultation bilaterally Cardio: Regular rate and rhythm, no murmurs Abd: Distended abdomen with positive fluid wave Skin: No petechiae or rashes Back: No midline or flank tenderness Ext: No cyanosis, or edema Neur: Awake and alert Psych: Normal Mood and Affect Result Diagram: 05/25/17 1350 05/25/17 1350 Results 24 hrs Laboratory Tests Test 05/25/17 13:50 White Blood Count 3.310^3/ul Red Blood Count 4.2310^6/ul Hemoglobin 8.0g/dl Hematocrit 31.3% Mean Corpuscular Volume 74.0fl Mean Corpuscular Hemoglobin 18.9pg Mean Corpuscular Hemoglobin Concent 25.6g/dl Red Cell Distribution Width 19.2% Platelet Count 46768^3/UL Mean Platelet Volume 9.7fl Neutrophils % 61.5% Lymphocytes % 22.8% Monocytes % 10.2% Eosinophils % 4.0% Basophils % 0.6% Nucleated Red Blood Cells % 0.0/100WBC Neutrophils # 2.010^3/ul Lymphocytes # 0.710^3/ul Monocytes # 0.310^3/ul Eosinophils # 0.110^3/ul Basophils # 0.010^3/ul Nucleated Red Blood Cells # 0.010^3/ul Prothrombin Time 15.6Sec Prothrombin Time Ratio 1.2 INR International Normalized Ratio 1.23 Activated Partial Thromboplast Time 36.5Sec Sodium Level 142mmol/L Potassium Level 4.3mmol/L Chloride Level 103mmol/L Carbon Dioxide Level 29mmol/L Anion Gap 14 Blood Urea Nitrogen 12mg/dl Creatinine 0.78mg/dl Glucose Level 87mg/dl Calcium Level 10.4mg/dl Iron Level 23ug/dl Total Iron Binding Capacity 433ug/dl Percent Iron Saturation 5% SAT Total Bilirubin 1.0mg/dl Direct Bilirubin 0.00mg/dl Indirect Bilirubin 1.0mg/dl Aspartate Amino Transf (AST/SGOT) 46IU/L Alanine Aminotransferase (ALT/SGPT) 31IU/L Alkaline Phosphatase 127IU/L Total Protein 8.6g/dl Albumin 4.3g/dl Globulin 4.30g/dl Albumin/Globulin Ratio 1.00 Lipase 77U/L Alpha Fetoprotein 2.36IU/L Current Medications Medications (Trade) Dose Ordered Sig/Kevin Route PRN Reason Start Time Stop Time Status Last Admin Dose Admin Lidocaine (Xylocaine 1% (Mpf)) 5 ml STK-MED ONCE .ROUTE 05/25/17 17:57 05/25/17 17:58 DC 05/25/17 18:07 Procedures/MDM Ultrasound-guided paracentesis done by radiology. Patient is a 41-year-old female with ascites and cirrhosis who presents with abdominal pain with distention. She had a paracentesis done. I doubt spontaneous bacterial peritonitis. The patient had laboratory studies of the liver doctor asked for in the blood and ascites fluid sent for study. The patient was given a copy of the laboratory studies. The patient will be discharged and can follow-up with her liver doctor within 24-48 hours. She can return sooner for any worsening symptoms. Departure Diagnosis: Primary Impression: Ascites Ascites type: other type Qualified Code: R18.8 - Other ascites Additional Impression: Anemia Anemia type: unspecified type Qualified Code: D64.9 - Anemia, unspecified type Condition: Fair Patient Instructions: Anemia, Ascites Referrals: VIVEK CHAVEZ Additional Instructions: SPECIALIST: YOU HAVE A MEDICAL CONDITION WHICH REQUIRES YOU TO SEE A SPECIALIST WITHIN THE NEXT 1-2 DAYS. PLEASE FOLLOW UP WITH YOUR PRIMARY PHYSICIAN FOR REFFERAL.IF YOU DO NOT HAVE A PRIMARY CARE PHYSICIAN AND/OR YOU CAN NOT AFFORD TO SEE A PHYSICIAN THE FOLLOWING RESOURCES HAVE BEEN SUPPLIED TO YOU. IT IS YOUR RESPONSIBILITY TO BE SEEN BY THE SPECIALIST KIMBERLY VELÁSQUEZ MD May 25, 2017 18:23
[2017-05-25 19:16] LABS: FLD CLARITY HAZY
[2017-05-25 19:20] LABS: FLD COLOR YELLOW
[2017-05-25 19:22] LABS: FLD TYPE PARACENTHESIS
[2017-05-25 19:34] LABS: FLUID AMYLASE < 30 U/L
[2017-05-25 19:35] LABS: FLUID TOTAL PROTEIN 4.4 g/dl; FLUID TYPE PARACENTESIS FLUID
[2017-05-25 19:50] LABS: FLD MN% 86.8 %; FLD PMN% 13.2 %; FLD RBC 0 /uL; FLD WBC 281 /cmm
--- NOTE | 2017-05-26 09:52 | RADRPT ---
PROCEDURE: Ultrasound guided paracentesis. CLINICAL INDICATION: Ascites and shortness of breath. COMPARISON: 05/03/2017. TECHNIQUE: The risks, benefits, and alternatives were explained to the patient and/or the patient's family, inc luding but not limited to bleeding, infection, pain, visceral or vascular damage, shock, and . The patient and/or the patient's family understood the risks and the alternatives and wished to pro ceed with the procedure. Informed written consent was obtained. A procedural time out was performed . The patient's name, date of , and procedure to be performed were verified. Utilizing ultrasound guidance, optimal location for entry to the peritoneal cavity was ascertained. The overlying skin was prepped and draped in the usual sterile fashion. Approximately 10 ml of 1% Xylocaine was injected locally for pain control. Using ultrasound guidance, an 8 [place] catheter wa s introduced into the peritoneal cavity in the right lower quadrant without difficulty. FINDINGS: Initial images demonstrate ascites. Approximately 10.0 liters of serous fluid was aspirated and sen t for laboratory analysis. The patient tolerated the procedure well without complication. IMPRESSION: 1. Successful ultrasound-guided paracentesis. RPTAT: QQ .Thomas Talavera MD, Date Time Electronically viewed and signed by .hTomas Talavera MD, on 05/26/2017 09:52 .R/
== END 2017-05-25 18:15 | disposition home or self-care (01) ==
LOC: E/R 12:20
DX: R18.8 Other ascites (principal); D64.9 Anemia, unspecified; E03.9 Hypothyroidism, unspecified; R07.9 Chest pain, unspecified
CPT/HCPCS: 80053; 82105; 82150; 83540; 83690; 84157; 85025; 85610; 85730; 87070; 87102; 87116; 89051; Z7502; Z7610

== ENCOUNTER 2017-05-28 13:12 | Emergency (ER) | payer OTHER ==
[~2017-05-28] VITALS: Ht 167.6 cm; Wt 132.9 kg
[2017-05-28 13:14] VITALS: Ht 167.6 cm; Wt 132.9 kg
--- NOTE | 2017-05-28 15:53 | RADRPT ---
PROCEDURE: Ultrasound of the right abdominal wall soft tissues was performed. CLINICAL INDICATION: Right-sided abdominal pain after paracentesis. TECHNIQUE: Lynn scale and color doppler ultrasound of the soft tissues was performed. COMPARISON: None. FINDINGS: Solid masses:None Cystic lesions: None Lymph nodes: Normal Soft tissues: Subcutaneous edema present. No focal collection visualized. IMPRESSION: 1. Subcutaneous edema around the site of prior paracentesis. No focal collection identified. RPTAT: [facility] Physician Glenda Date Time Electronically viewed and signed by Physician Glenda on 05/28/2017 15:53 /
[2017-05-28] MEDS ORDERED: CEPH-443 PO (16:04)
[2017-05-28] MEDS ORDERED: TRAM50TA2 PO (16:04)
--- NOTE | 2017-05-28 16:08 | ERD ---
ER Documentation Chief Complaint Chief Complaint brusing/swelling/pain at paracentesis site x 3 days, denies fever HPI Patient is a 41-year-old morbidly obese female who was seen here on the had paracentesis secondary to liver cirrhosis and ascites. She is here she is here because she has bruising and pain around the site. She is not sure if it is infected. No fever. No nausea vomiting or diarrhea. She has had paracentesis 2 other times and states this one hurts more than the others. ROS All systems reviewed and are negative except as per history of present illness. Medications Home Meds Active Scripts Tramadol HCl (Tramadol HCl) 50 Mg Tablet, 50 MG PO Q4 Y for PAIN, #20 TAB Prov:SIDNEY MORROW PA-C 05/28/17 Cephalexin* (Keflex*) 500 Mg Capsule, 500 MG PO QID for 7 Days, CAP Prov:SIDNEY MORROW PA-C 05/28/17 Ferrous Sulfate* (Ferrous Sulfate*) 325 Mg Tabec, 325 MG PO BID for 30 Days, TAB Prov:DILLAN JOHNSON [employer]IXER 12/14/16 Reported Medications Spironolactone* (Aldactone*) 25 Mg Tablet, 25 MG PO DAILY, #30 TAB 05/03/17 Furosemide* (Furosemide*) 20 Mg Tablet, 20 MG PO BID, #30 TAB 02/08/17 Levothyroxine Sodium* (Levothyroxine Sodium*) 200 Mcg Tablet, 275 MCG PO BEFORE BREAKFAST, #30 TAB 02/08/17 Lactulose* (Lactulose*) 20 Gm/30 Ml Solution, 20 GM PO BID, ML 12/14/16 Pantoprazole* (Pantoprazole*) 40 Mg Tablet.dr, 40 MG PO DAILY, TAB 12/13/16 Propranolol Hcl* (Propranolol Hcl*) 10 Mg Tablet, 10 MG PO BID, TAB 10/07/16 Allergies Allergies: Coded Allergies: No Known Allergy (Unverified , 05/28/17) PMhx/Soc History of Surgery: Yes (left ankle with plate and screw,appendectomy,explor lap) Anesthesia Reaction: No Hx Neurological Disorder: No Hx Respiratory Disorders: No Hx Cardiac Disorders: Yes (heart murmur) Hx Psychiatric Problems: No Hx Miscellaneous Medical Probl: Yes (chr anemia, lupus, AUTOIMMUNE HEPATITIS, CIRRHOSIS, HYPOTHYROIDISM) Hx Alcohol Use: No Hx Substance Use: No Hx Tobacco Use: No FmHx Family History: No diabetes Physical Exam Vitals Vital Signs Date Time Temp Pulse Resp B/P Pulse Ox O2 Delivery O2 Flow Rate FiO2 05/28/17 13:14 98.2 80 19 130/61 96 Physical Exam Const: [] Morbidly obese Head: Atraumatic Eyes: Normal Conjunctiva ENT: Normal External Ears, Nose and Mouth. Neck: Full range of motion..~ No meningismus. Resp: Clear to auscultation bilaterally Cardio: Regular rate and rhythm, no murmurs Abd: Soft, non tender, non distended. Normal bowel sounds, negative Mullins sign negative McBurney's point tenderness, negative CVA tenderness Skin: Right side abdomen has a small incision hole without any surrounding erythema, no edema, no palpable masses Procedures/MDM Patient here for wound check. Appears to be healing appropriately. Vitals are normal. Ultrasound shows no collection of fluid or abscess. Patient was given a prescription for tramadol for the pain and she was put prophylactically on Keflex. Patient counseled regarding my diagnostic impression and care plan. Prior to discharge all questions answered. Pt agrees with treatment plan and understands strict return precautions. Pt is instructed to follow up with primary care provider within 24-48 hours. Precautionary instructions provided including instructions to return to the ER if not improving or for any worsening or changing symptoms or concerns. Departure Diagnosis: Primary Impression: Encounter for wound re-check Condition: Stable Patient Instructions: Post Op Wound Check, Pain Additional Instructions: Call your primary care doctor TOMORROW for an appointment during the next 1-2 days.See the doctor sooner or return here if your condition worsens before your appointment time. SIDNEY MORROW PA-C May 28, 2017 16:08
== END 2017-05-28 16:15 | disposition home or self-care (01) ==
LOC: FTE 13:12
DX: T81.89XA Other complications of procedures, not elsewhere classified, initial encounter (principal); E03.9 Hypothyroidism, unspecified; E66.01 Morbid (severe) obesity due to excess calories; Y73.8 Miscellaneous gastroenterology and urology devices associated with adverse incidents, not elsewhere classified
CPT/HCPCS: 76536; Z7502

== ENCOUNTER 2017-06-15 14:20 | Emergency (ER) | payer OTHER ==
[~2017-06-15] VITALS: Ht 165.1 cm; Wt 143.8 kg
[~2017-06-15 14:20] MED LIST changes: +CEPH-443 PO; +TRAM50TA2 PO
[2017-06-15 14:22] VITALS: Ht 165.1 cm; Wt 143.8 kg
[2017-06-15 16:49] LABS: ABNORMAL IP MESSAGE 1; HEMATOCRIT 30.9 % (37.0-47.0); HEMOGLOBIN 8.2 g/dl (12.0-16.0); MEAN CORPUSCULAR HEMOGLOBIN 19.7 pg (29.0-33.0); MEAN CORPUSCULAR HGB CONC 26.5 g/dl (32.0-37.0); MEAN CORPUSCULAR VOLUME 74.1 fl (82.0-101.0); MEAN PLATELET VOLUME 10.6 fl (7.4-10.4); PLATELET COUNT 142 10^3/UL (140-415); RED BLOOD COUNT 4.17 10^6/ul (4.20-5.40); RED CELL DISTRIBUTION WIDTH 18.8 % (11.5-14.5); WHITE BLOOD COUNT 2.8 10^3/ul (4.8-10.8)
[2017-06-15 16:51] LABS: POSITIVE DIFF @See below
[2017-06-15 17:07] LABS: INR 1.13; PROTIME 14.7 Sec (11.9-14.9); PT RATIO 1.1
[2017-06-15 17:08] LABS: PARTIAL THROMBOPLASTIN TIME 37.5 Sec (25.0-35.0)
[2017-06-15 17:11] LABS: ALBUMIN 3.9 g/dl (3.3-4.9); ALBUMIN/GLOBULIN RATIO 0.92; BILIRUBIN,INDIRECT 0.6 mg/dl (0-1.1); BILIRUBIN,TOTAL 0.6 mg/dl (0.2-1.3); CALCIUM 10.3 mg/dl (8.4-10.2); CREATININE 0.96 mg/dl (0.44-1.00); POTASSIUM 4.2 mmol/L (3.5-5.1); TOTAL PROTEIN 8.1 g/dl (6.1-8.1)
--- NOTE | 2017-06-15 17:46 | ERD ---
ER Documentation Chief Complaint Chief Complaint here for paracenthesis, has ap HPI This is a 42-year-old female with a history of autoimmune hepatitis and cirrhosis with ascites asking for a large volume paracentesis. She describes abdominal fullness. Her last paracentesis was approximately 2-1/2 weeks ago. No fevers or chills, no significant abdominal pain nausea vomiting or melena. ROS All systems reviewed and are negative except as per history of present illness. Medications Home Meds Active Scripts Tramadol HCl (Tramadol HCl) 50 Mg Tablet, 50 MG PO Q4 Y for PAIN, #20 TAB Prov:SIDNEY MORROW PA-C 05/28/17 Cephalexin* (Keflex*) 500 Mg Capsule, 500 MG PO QID for 7 Days, CAP Prov:SIDNEY MORROW PA-C 05/28/17 Ferrous Sulfate* (Ferrous Sulfate*) 325 Mg Tabec, 325 MG PO BID for 30 Days, TAB Prov:DILLAN JOHNSON [employer] L[employer] INSPECTOR 12/14/16 Reported Medications Spironolactone* (Aldactone*) 25 Mg Tablet, 25 MG PO DAILY, #30 TAB 05/03/17 Furosemide* (Furosemide*) 20 Mg Tablet, 20 MG PO BID, #30 TAB 02/08/17 Levothyroxine Sodium* (Levothyroxine Sodium*) 200 Mcg Tablet, 275 MCG PO BEFORE BREAKFAST, #30 TAB 02/08/17 Lactulose* (Lactulose*) 20 Gm/30 Ml Solution, 20 GM PO BID, ML 12/14/16 Pantoprazole* (Pantoprazole*) 40 Mg Tablet.dr, 40 MG PO DAILY, TAB 12/13/16 Propranolol Hcl* (Propranolol Hcl*) 10 Mg Tablet, 10 MG PO BID, TAB 10/07/16 Allergies Allergies: Coded Allergies: No Known Allergy (Unverified , 05/28/17) PMhx/Soc History of Surgery: Yes (left ankle with plate and screw,appendectomy,explor lap) Anesthesia Reaction: No Hx Neurological Disorder: No Hx Respiratory Disorders: No Hx Cardiac Disorders: Yes (heart murmur) Hx Psychiatric Problems: No Hx Miscellaneous Medical Probl: Yes (chr anemia, lupus, AUTOIMMUNE HEPATITIS, CIRRHOSIS, HYPOTHYROIDISM) Hx Alcohol Use: No Hx Substance Use: No Hx Tobacco Use: No FmHx Family History: No diabetes Physical Exam Vitals Vital Signs Date Time Temp Pulse Resp B/P Pulse Ox O2 Delivery O2 Flow Rate FiO2 06/15/17 14:22 98.8 71 18 142/70 99 Physical Exam General: Well developed, well nourished, no acute distress Head: Normocephalic, atraumatic. Eyes: Pupils equally reactive, EOM intact ENT: Moist mucous membranes Neck: Supple, no lymphadenopathy Respiratory: Lungs clear bilaterally, no distress Cardiovascular: RRR, no murmurs, rubs, or gallops Abdominal: Soft, protuberant with fluid wave, no peritonitis : Deferred MSK: No edema, no unilateral swelling, 5/5 strength Neurologic: Alert and oriented, moving all extremities, normal speech, no focal weakness, no cerebellar signs Skin: No rash Psych: Normal mood Result Diagram: 06/15/17 1625 06/15/17 1625 Results 24 hrs Laboratory Tests Test 06/15/17 16:25 White Blood Count 2.810^3/ul Red Blood Count 4.1710^6/ul Hemoglobin 8.2g/dl Hematocrit 30.9% Mean Corpuscular Volume 74.1fl Mean Corpuscular Hemoglobin 19.7pg Mean Corpuscular Hemoglobin Concent 26.5g/dl Red Cell Distribution Width 18.8% Platelet Count 66051^3/UL Mean Platelet Volume 10.6fl Nucleated Red Blood Cells % 0.0/100WBC Prothrombin Time 14.7Sec Prothrombin Time Ratio 1.1 INR International Normalized Ratio 1.13 Activated Partial Thromboplast Time 37.5Sec Sodium Level 141mmol/L Potassium Level 4.2mmol/L Chloride Level 104mmol/L Carbon Dioxide Level 28mmol/L Anion Gap 13 Blood Urea Nitrogen 9mg/dl Creatinine 0.96mg/dl Glucose Level 95mg/dl Calcium Level 10.3mg/dl Total Bilirubin 0.6mg/dl Direct Bilirubin 0.00mg/dl Indirect Bilirubin 0.6mg/dl Aspartate Amino Transf (AST/SGOT) 49IU/L Alanine Aminotransferase (ALT/SGPT) 36IU/L Alkaline Phosphatase 120IU/L Total Protein 8.1g/dl Albumin 3.9g/dl Globulin 4.20g/dl Albumin/Globulin Ratio 0.92 Procedures/MDM LAB INTERPRETATION: Pancytopenia consistent with her baseline. No significant coagulopathy MEDICAL DECISION MAKING: The patient presents for large volume paracentesis however interventional radiologist is not available. I do not believe the patient requires emergent large-volume paracentesis and therapeutic paracentesis therefore I do not feel he needs to be provided by myself at the bedside. The patient was advised to return to the emergency room tomorrow morning at 8 AM when she can have the paracentesis. I kept the patient and/or family informed of laboratory and diagnostic imaging results throughout the emergency room course. DISPOSITION PLAN: We discussed follow up with the patient's primary care doctor within 24 to 48 hours as needed. We also discussed return to the emergency room for worsening symptoms or worsening condition. Departure Diagnosis: Primary Impression: Ascites Ascites type: other type Qualified Code: R18.8 - Other ascites Additional Impressions: Leukopenia Leukopenia type: unspecified Qualified Code: D72.819 - Leukopenia, unspecified type Anemia Anemia type: unspecified type Qualified Code: D64.9 - Anemia, unspecified type Condition: Stable Patient Instructions: Ascites Additional Instructions: Please return tomorrow morning around 8 am for paracentesis. Call your primary care doctor TOMORROW for an appointment during the next 1 WEEK.Tell the workers compensation legal secretary that you were referred from this facility.See the doctor sooner or return here if your condition worsens before your appointment time. SHARYN ARROYO MD Jun 15, 2017 17:46
[2017-06-15 18:05] VITALS: BP 133/72; PULSE 80; RESP 18; TEMP 98.8
[2017-06-15 18:15] LABS: ANISOCYTOSIS 1+ (0-0); BASOPHILS % (M) 1 % (0-2); EOSINOPHILS % (M) 4 % (0-7); GIANT THROMBO% (M) 5 % (0-0); HYPOCHROMASIA 1+ (0-0); MICROCYTOSIS 1+ (0-0); MONOCYTES % (M) 6 % (0-11); MYELOCYTES % (M) 1 % (0-0); PLATELET ESTIMATE NORMAL; REACTIVE LYMPHOCYTES% (M) 2 % (0-0)
[2017-06-16] MEDS ORDERED: LEVO200T6 PO (12:04)
[2017-06-16] MEDS ORDERED: LEVO75TA5 PO (12:04)
== END 2017-06-15 18:06 | disposition home or self-care (01) ==
LOC: E/R 14:20
DX: R18.8 Other ascites (principal); D72.819 Decreased white blood cell count, unspecified; D64.9 Anemia, unspecified; E03.9 Hypothyroidism, unspecified
CPT/HCPCS: 80053; 85025; 85610; 85730; Z7502; 99283

== ENCOUNTER 2017-06-16 08:27 | Emergency (ER) | payer OTHER ==
[~2017-06-16] VITALS: Ht 167.6 cm; Wt 145.5 kg
[2017-06-16 08:29] VITALS: Ht 167.6 cm; Wt 145.5 kg
[2017-06-16] MEDS ORDERED: LIDOCAINE 1% (MPF) 5 ML VIAL ONE (11:02)
--- NOTE | 2017-06-16 11:48 | ERD ---
ER Documentation Chief Complaint Chief Complaint was seen yesterday requesting a paracentesis wasnt done yesterday HPI 42 old female returns to the emergency department today for her paracentesis. Patient has a history of requiring recurrent large volume paracentesis for ascites. She was evaluated yesterday with normal blood tests but this was unable to be done. She returns today to get the procedure done. She has no new complaints. Patient reports no fevers, melena, vomiting, abdominal pain, shortness of breath. ROS All systems reviewed and are negative except as per history of present illness. Medications Home Meds Reported Medications Spironolactone* (Aldactone*) 25 Mg Tablet, 25 MG PO DAILY, #30 TAB 05/03/17 Furosemide* (Furosemide*) 20 Mg Tablet, 20 MG PO BID, #30 TAB 02/08/17 Levothyroxine Sodium* (Levothyroxine Sodium*) 200 Mcg Tablet, 275 MCG PO BEFORE BREAKFAST, #30 TAB 02/08/17 Lactulose* (Lactulose*) 20 Gm/30 Ml Solution, 20 GM PO BID, ML 12/14/16 Pantoprazole* (Pantoprazole*) 40 Mg Tablet.dr, 40 MG PO DAILY, TAB 12/13/16 Propranolol Hcl* (Propranolol Hcl*) 10 Mg Tablet, 10 MG PO BID, TAB 10/07/16 Discontinued Scripts Tramadol HCl (Tramadol HCl) 50 Mg Tablet, 50 MG PO Q4 Y for PAIN, #20 TAB Prov:SIDNEY MORROW PA-C 05/28/17 Cephalexin* (Keflex*) 500 Mg Capsule, 500 MG PO QID for 7 Days, CAP Prov:SIDNEY MORROW PA-C 05/28/17 Ferrous Sulfate* (Ferrous Sulfate*) 325 Mg Tabec, 325 MG PO BID for 30 Days, TAB Prov:DILLAN JOHNSON NP 12/14/16 Allergies Allergies: Coded Allergies: No Known Allergy (Unverified , 05/28/17) PMhx/Soc History of Surgery: Yes (left ankle with plate and screw,appendectomy,explor lap) Anesthesia Reaction: No Hx Neurological Disorder: No Hx Respiratory Disorders: No Hx Cardiac Disorders: Yes (heart murmur) Hx Psychiatric Problems: No Hx Miscellaneous Medical Probl: Yes (chr anemia, lupus, AUTOIMMUNE HEPATITIS, CIRRHOSIS, HYPOTHYROIDISM) Hx Alcohol Use: No Hx Substance Use: No Hx Tobacco Use: No Smoking Status: Never smoker FmHx Noncontributory for chief complaint Physical Exam Vitals Vital Signs Date Time Temp Pulse Resp B/P Pulse Ox O2 Delivery O2 Flow Rate FiO2 06/16/17 08:29 98.0 70 18 191/96 99 Physical Exam GENERAL: Chronically ill but in no acute distress HEENT: Pupils equal, round, and reactive to light. EOMI. There is no scleral icterus. NECK: C-spine is soft and supple, there is no meningismus. There is no cervical lymphadenopathy. LUNGS: Clear to auscultation bilaterally. There are no rales, wheezes or rhonchi. HEART: Regular rate and rhythm, no murmurs, clicks, rubs or gallops. ABDOMEN: Soft, fluid wave, nontender. EXTREMITIES: There is no peripheral cyanosis or edema. No focal swelling or erythema. NEURO: The patient moves all four extremities with 5/5 strength. Cranial nerves II - XII are intact. Normal gait. Alert and oriented, no asterixis SKIN: There is no apparent rash or petechiae. HEME/LYMPHATIC: There is no evidence of excessive bruising or lymphedema. PSYCHIATRIC: The patient does not appear anxious or depressed. Results 24 hrs Current Medications Medications (Trade) Dose Ordered Sig/Kevin Route PRN Reason Start Time Stop Time Status Last Admin Dose Admin Lidocaine (Xylocaine 1% (Mpf)) 5 ml STK-MED ONCE .ROUTE 06/16/17 11:02 06/16/17 11:03 DC 06/16/17 11:35 Procedures/MDM Patient was taken to a room, seen and examined Therapeutic large volume paracentesis was performed by radiology. Patient was evaluated postprocedure and was able to be discharged home Medical decision makin-year-old female presents to the emergency department for evaluation of ascites. At this time, patient shows no evidence of peritonitis or other significant decompensation of her liver disease. She is clinically well at this time and appropriate for outpatient care. Departure Diagnosis: Primary Impression: Cirrhosis Condition: Stable Patient Instructions: Ascites Referrals: KORY VILLALOBOS MD (PCP) CLARISSA GARCIA Jun 16, 2017 11:48
[2017-06-16] MEDS ORDERED: LEVO75TA5 PO (12:04)
[2017-06-16] MEDS ORDERED: LEVO200T6 PO (12:04)
[2017-06-16 12:10] VITALS: BP 115/68; PULSE 60; RESP 14; TEMP 98.1
--- NOTE | 2017-06-16 16:54 | RADRPT ---
PROCEDURE: Ultrasound guided paracentesis CLINICAL INDICATION: Ascites TECHNIQUE: The risks benefits and alternatives of the procedure were explained to the patient. In formed written consent was obtained. A time out was performed. The patient understood the risks be nefits and alternatives and wished to proceed with the procedure. COMPARISON: None available FINDINGS: A time out was performed. The overlying skin of the right lower quadrant of the abdomen was prepped and draped in the usual sterile fashion. Approximately 10 cc of lidocaine was injected locally for pain control. Utilizing ultrasound guidance, a 6-[place] paracentesis catheter was placed into the peritoneal cavity without difficulty. The patient tolerated the procedure well without complication . Approximately 10,000 cc of clear yellow fluid was obtained. The fluid was not sent to the lab fo r further analysis. IMPRESSION: 1. Successful ultrasound-guided paracentesis. RPTAT: QQ .Yfn Hardin MD, Date Time Electronically viewed and signed by .Yfn Hardin MD, MD on 06/16/2017 12:13 .R/
== END 2017-06-16 12:10 | disposition home or self-care (01) ==
LOC: E/R 08:27
DX: K74.60 Unspecified cirrhosis of liver (principal); E03.9 Hypothyroidism, unspecified
CPT/HCPCS: Z7502; Z7610

== ENCOUNTER 2017-06-29 09:34 | Emergency (ER) | payer OTHER ==
[~2017-06-29] VITALS: Wt 144.6 kg
[~2017-06-29 09:34] MED LIST changes: -CEPH-443 PO; -FER325 PO; +LEVO75TA5 PO; -TRAM50TA2 PO
[2017-06-29] MEDS ORDERED: KETOROLAC 30 MG INJ IM STA (10:32)
--- NOTE | 2017-06-29 10:42 | ERD ---
ER Documentation Chief Complaint Chief Complaint ap, here for paracenthesis HPI 42-year-old woman has complaints of abdominal pain and ascites as well as a headache. She undergoes paracentesis on a regular basis sometimes twice per month, last paracentesis was just a few weeks ago. She has a history of autoimmune hepatitis, chronic pain syndrome, and opioid dependence as well. She states she also has an abdominal hernia for the last 10 years which has been hurting her. Also states she has a history of anemia and previous transfusions with recent complaints of dizziness but no loss of consciousness or near syncopal episodes. She denies dysuria, no fevers or chills, no chest pain or shortness of breath, no headache or blurry vision ROS All systems reviewed and are negative except as per history of present illness. Medications Home Meds Active Scripts Levothyroxine Sodium* (Levothyroxine Sodium*) 200 Mcg Tablet, 200 MCG PO BEFORE BREAKFAST, #30 TAB Prov:CLARISSA GARCIA 06/16/17 Levothyroxine Sodium* (Levothyroxine Sodium*) 75 Mcg Tablet, 75 MCG PO BEFORE BREAKFAST, #30 TAB Prov:CLARISSA GARCIA 06/16/17 Reported Medications Spironolactone* (Aldactone*) 25 Mg Tablet, 25 MG PO DAILY, #30 TAB 05/03/17 Furosemide* (Furosemide*) 20 Mg Tablet, 20 MG PO BID, #30 TAB 02/08/17 Levothyroxine Sodium* (Levothyroxine Sodium*) 200 Mcg Tablet, 275 MCG PO BEFORE BREAKFAST, #30 TAB 02/08/17 Lactulose* (Lactulose*) 20 Gm/30 Ml Solution, 20 GM PO BID, ML 12/14/16 Pantoprazole* (Pantoprazole*) 40 Mg Tablet.dr, 40 MG PO DAILY, TAB 12/13/16 Propranolol Hcl* (Propranolol Hcl*) 10 Mg Tablet, 10 MG PO BID, TAB 10/07/16 Allergies Allergies: Coded Allergies: No Known Allergy (Unverified , 05/28/17) PMhx/Soc Autoimmune hepatitis, cirrhosis, recurrent ascites, obesity, hypothyroidism, chronic pain syndrome, opioid dependence, gastritis History of Surgery: Yes (left ankle with plate and screw,appendectomy,explor lap) Anesthesia Reaction: No Hx Neurological Disorder: No Hx Respiratory Disorders: No Hx Cardiac Disorders: Yes (heart murmur) Hx Psychiatric Problems: No Hx Miscellaneous Medical Probl: Yes (chr anemia, lupus, AUTOIMMUNE HEPATITIS, CIRRHOSIS, HYPOTHYROIDISM) Hx Alcohol Use: No Hx Substance Use: No Hx Tobacco Use: No Physical Exam Vitals Vital Signs Date Time Temp Pulse Resp B/P Pulse Ox O2 Delivery O2 Flow Rate FiO2 06/29/17 09:55 97.4 65 16 137/84 98 Physical Exam GENERAL: Well-developed, well-nourished, well-hydrated, in no apparent distress , looks nontoxic in appearance HEENT: Moist mucous membranes, pink conjunctiva, no cervical spine tenderness or step-off deformities, no goiter, no jaundice or icterus, extraocular movements intact without pain. No submandibular induration, and no pharyngeal erythema NEURO: Alert and oriented 3, cranial nerves II through XII intact bilaterally, pupils equal round reactive to light, no focal deficits or facial asymmetry, sensation intact distally Strength 5/5 in upper and lower extremities bilaterally CARDIAC: Regular rate and rhythm, no murmurs rubs or gallops LUNGS: Clear bilaterally no wheezing crackles or stridor ABDOMEN: Protuberant abdomen, soft, nontender, distended SKIN: Warm and dry to touch, no abrasions, contusions, or hematomas, no lacerations, no ecchymosis, no target lesions, and without ulcers EXTREMITIES: No clubbing cyanosis or edema, calves are bilaterally symmetrical, no Homans sign, no popliteal cord sign. Distal pulses equal and bilateral PSYCH: Normal affect without agitation or irritability Results 24 hrs Current Medications Medications (Trade) Dose Ordered Sig/Kevin Route PRN Reason Start Time Stop Time Status Last Admin Dose Admin Ketorolac Tromethamine (Toradol) 30 mg ONCE STAT IM 06/29/17 10:32 06/29/17 10:34 DC Procedures/MDM CBC and electrolytes were normal, liver function tests normal, coagulation profile was normal. Patient underwent paracentesis Differential diagnoses considered, included but not limited to acute coronary syndrome, pulmonary embolism, aortic dissection, abdominal aortic aneurysm, sepsis, stroke, meningitis, encephalitis, pneumonia, appendicitis, cholecystitis , bowel obstruction, pyelonephritis, nephrolithiasis, cystitis, as well as metabolic, hematologic, and electrolyte abnormalities. As well as abscess, cellulitis, fractures, and dislocations. Patient feels much better at this time, and vital signs are normal, symptoms have improved. I did give strict instructions to return to the ED if symptoms continue or worsen, patient will otherwise follow-up with primary care physician. Patient understood instructions and agreed to plan. Disclaimer: Inadvertent spelling and grammatical errors are likely due to EHR/ dictation software use and do not reflect on the overall quality of patient care. Also, please note that the electronic time recorded on this note does not necessarily reflect the actual time of the patient encounter. Departure Diagnosis: Primary Impression: Cirrhosis Hepatic cirrhosis type: unspecified hepatic cirrhosis Ascites presence: with ascites Qualified Code: K74.60 - Cirrhosis of liver with ascites, unspecified hepatic cirrhosis type Additional Impression: Ascites Ascites type: other type Qualified Code: R18.8 - Other ascites Condition: THU Sanabria MD Jun 29, 2017 10:42
[2017-06-29 11:06] LABS: ADD UMIC YES; UR ASCORBIC ACID 40 mg/dL (NEGATIVE); UR BILIRUBIN (Dip) NEGATIVE (NEGATIVE); UR BLOOD (Dip) NEGATIVE (NEGATIVE); UR CLARITY SLIGHTLY CLOUDY (CLEAR); UR COLOR YELLOW (YELLOW); UR GLUCOSE (Dip) NEGATIVE (NEGATIVE); UR KETONES (Dip) NEGATIVE (NEGATIVE); UR LEUKOCYTE ESTERASE (Dip) TRACE Leu/ul (NEGATIVE); UR MUCUS FEW /HPF (NONE SEEN); UR NITRITE (Dip) NEGATIVE (NEGATIVE); UR RBC 1 /HPF (0-5); UR SPECIFIC GRAVITY (Dip) 1.016 (1.003-1.030); UR SQUAMOUS EPITHELIAL CELL MODERATE /HPF (FEW); UR TOTAL PROTEIN (Dip) NEGATIVE (NEGATIVE); UR UROBILINOGEN (Dip) 1+ mg/dL (NEGATIVE)
[2017-06-29 13:08] LABS: ABNORMAL IP MESSAGE 1; EOSINOPHILS # 0.2 10^3/ul (0.0-0.5); EOSINOPHILS % 4.8 % (0.0-7.0); HEMATOCRIT 32.6 % (37.0-47.0); HEMOGLOBIN 8.3 g/dl (12.0-16.0); LYMPHOCYTES # 0.6 10^3/ul (0.8-2.9); LYMPHOCYTES % 20.6 % (15.0-51.0); MEAN CORPUSCULAR HEMOGLOBIN 19.1 pg (29.0-33.0); MEAN CORPUSCULAR HGB CONC 25.5 g/dl (32.0-37.0); MEAN CORPUSCULAR VOLUME 75.1 fl (82.0-101.0); MEAN PLATELET VOLUME 10.9 fl (7.4-10.4); MONOCYTE # 0.3 10^3/ul (0.3-0.9); MONOCYTES % 8.7 % (0.0-11.0); NEUTROPHILS % 64.3 % (39.0-77.0); PLATELET COUNT 141 10^3/UL (140-415); RED BLOOD COUNT 4.34 10^6/ul (4.20-5.40); RED CELL DISTRIBUTION WIDTH 18.6 % (11.5-14.5); WHITE BLOOD COUNT 3.1 10^3/ul (4.8-10.8)
[2017-06-29 13:10] LABS: ALBUMIN 3.8 g/dl (3.3-4.9); ALBUMIN/GLOBULIN RATIO 0.88; BILIRUBIN,INDIRECT 0.8 mg/dl (0-1.1); BILIRUBIN,TOTAL 0.8 mg/dl (0.2-1.3); CALCIUM 10.2 mg/dl (8.4-10.2); CREATININE 0.8 mg/dl (0.44-1.00); INR 1.18; POTASSIUM 3.9 mmol/L (3.5-5.1); PROTIME 15.2 Sec (11.9-14.9); PT RATIO 1.2; TOTAL PROTEIN 8.1 g/dl (6.1-8.1)
[2017-06-29] MEDS ORDERED: LIDOCAINE 1% (MPF) 5 ML VIAL ONE (14:48)
[2017-06-29 14:54] VITALS: BP 105/53; PULSE 61; RESP 18; TEMP 98.6
--- NOTE | 2017-06-29 17:03 | RADRPT ---
PROCEDURE: Ultrasound guided paracentesis. CLINICAL INDICATION: Ascites and shortness of breath. COMPARISON: June 16, 2017. TECHNIQUE: The risks, benefits, and alternatives were explained to the patient and/or the patient's family, inc luding but not limited to bleeding, infection, pain, visceral or vascular damage, shock, and . The patient and/or the patient's family understood the risks and the alternatives and wished to pro ceed with the procedure. Informed written consent was obtained. A procedural time out was performed . The patient's name, date of , and procedure to be performed were verified. Utilizing ultrasound guidance, optimal location for entry to the peritoneal cavity was ascertained. The overlying skin was prepped and draped in the usual sterile fashion. Approximately 10 ml of 1% Xylocaine was injected locally for pain control. Using ultrasound guidance, an 8 Tajik catheter wa s introduced into the peritoneal cavity in the left lower quadrant without difficulty. FINDINGS: Initial images demonstrate ascites. Approximately 10.0 liters of serous fluid was aspirated and dis carded. The patient tolerated the procedure well without complication. IMPRESSION: 1. Successful ultrasound-guided paracentesis. RPTAT: QQ .Thomas Talavera MD, Date Time Electronically viewed and signed by .Thomas Talavera MD, on 06/29/2017 17:03 .R/
== END 2017-06-29 14:55 | disposition home or self-care (01) ==
LOC: E/R 09:34
DX: K74.60 Unspecified cirrhosis of liver (principal); E03.9 Hypothyroidism, unspecified; E66.9 Obesity, unspecified
CPT/HCPCS: 80053; 81001; 83690; 85025; 85610; 87086; 96372; J1885; Z7502; Z7610

== ENCOUNTER 2017-08-25 10:23 | Emergency (ER) | END 2017-08-25 14:13 | disposition home or self-care (01) ==

== ENCOUNTER 2017-09-14 14:39 | Emergency (ER) | END 2017-09-14 21:05 | disposition home or self-care (01) ==

== ENCOUNTER 2017-09-30 08:00 | Emergency (ER) | END 2017-09-30 16:54 | disposition home or self-care (01) ==

== ENCOUNTER 2017-10-11 13:25 | Day surgery (SDC) | END 2017-10-11 17:15 | disposition home or self-care (01) ==

== ENCOUNTER 2017-10-19 07:25 | Emergency (ER) | END 2017-10-19 11:40 | disposition home or self-care (01) ==

== ENCOUNTER 2017-10-31 09:19 | Emergency (ER) | END 2017-10-31 16:01 | disposition home or self-care (01) ==

== ENCOUNTER 2017-11-14 09:40 | Emergency (ER) | END 2017-11-14 15:19 | disposition home or self-care (01) ==

== ENCOUNTER 2017-12-01 08:16 | Emergency (ER) | END 2017-12-01 13:37 | disposition home or self-care (01) ==

== ENCOUNTER 2017-12-12 08:51 | Emergency (ER) | END 2017-12-12 14:15 | disposition home or self-care (01) ==

== ENCOUNTER 2018-01-02 08:11 | Emergency (ER) | END 2018-01-02 12:46 | disposition home or self-care (01) ==

== ENCOUNTER 2018-01-04 08:56 | Emergency (ER) | END 2018-01-04 13:05 | disposition home or self-care (01) ==

== ENCOUNTER 2018-01-09 11:07 | Emergency (ER) | END 2018-01-09 14:35 | disposition home or self-care (01) ==

== ENCOUNTER 2018-02-06 10:55 | Emergency (ER) | END 2018-02-06 14:25 | disposition home or self-care (01) ==

== ENCOUNTER 2018-05-20 11:24 | Emergency (ER) | END 2018-05-20 17:18 | disposition home or self-care (01) ==

== ENCOUNTER 2018-06-29 10:33 | Emergency (ER) | END 2018-06-29 15:48 | disposition home or self-care (01) ==

== ENCOUNTER 2018-07-18 11:44 | Emergency (ER) | payer OTHER ==
[~2018-07-18] VITALS: Ht 154.9 cm; Wt 150.0 kg
[~2018-07-18 11:44] MED LIST changes: -LACT20SO2 PO; -LEVO75TA5 PO; -PROP10TA6 PO; +PROP20TA4 PO; -SPIR25TA PO; +SPIR50TA PO; +TRAM50TA PO; +TRAM50TA2 PO
[2018-07-18 11:57] VITALS: Ht 154.9 cm; Wt 150.0 kg
--- NOTE | 2018-07-18 12:38 | ERD ---
ER Documentation Chief Complaint Chief Complaint SOB, ABDOMEN DISTENDED, HX OF PARACENTISIS, NEEDS MED REFILLS WELL HPI The patient is a 43-year-old female, presenting to the ER because of recurrent abdominal distention that caused her dyspnea. She has similar symptoms previously, last paracentesis was June 29, 2018. She denies fever, cough, orthopnea, PND, leg edema. She denies abdominal pain, vomiting, dysuria, diarrhea, constipation. She does not smoke, drink Past medical history: Cirrhosis, hypothyroidism, SLE, ventral hernia, autoimmune hepatitis Past surgical history: Appendectomy ROS All systems reviewed and are negative except as per history of present illness. Medications Home Meds Active Scripts Furosemide* (Lasix*) 20 Mg Tablet, 20 MG PO BID for 7 Days, #20 TAB Prov:KIMBERLY BERNABE MD 07/18/18 Spironolactone* (Aldactone*) 50 Mg Tablet, 50 MG PO BID for 7 Days, #60 TAB Prov:KIMBERLY BERNABE MD 07/18/18 Levothyroxine Sodium* (Levothyroxine Sodium*) 200 Mcg Tablet, 200 MCG PO BEFORE BREAKFAST for 7 Days, #30 TAB Prov:KIMBERLY BERNABE MD 07/18/18 Tramadol HCl (Tramadol HCl) 50 Mg Tablet, 50 MG PO Q8H PRN for PAIN, #12 TAB Prov:WILFRID YAÑEZ MD 06/29/18 Tramadol HCl (Tramadol HCl) 50 Mg Tablet, 50 MG PO Q6 PRN for PAIN for 2 Days, #10 TAB Prov:THU ONEAL MD 05/20/18 Reported Medications Tramadol Hcl* (Ultram*) 50 Mg Tablet, 50 MG PO Q4H PRN for NEEDED, TAB 09/14/17 Furosemide* (Furosemide*) 20 Mg Tablet, 20 MG PO BID, #30 TAB 09/14/17 Spironolactone* (Aldactone*) 50 Mg Tablet, 50 MG PO BID, #60 TAB 09/14/17 Propranolol Hcl* (Propranolol Hcl*) 20 Mg Tablet, 20 MG PO BID, TAB 09/14/17 Pantoprazole* (Pantoprazole*) 40 Mg Tablet.dr, 40 MG PO AC BREAKFAST, TAB 09/14/17 Levothyroxine Sodium* (Levothyroxine Sodium*) 200 Mcg Tablet, 200 MCG PO BEFORE BREAKFAST, #30 TAB 09/14/17 Allergies Allergies: Coded Allergies: No Known Allergy (Unverified , 07/18/18) PMhx/Soc History of Surgery: Yes (APPY, ABD EXPLOR, LEFT ANKLE) Anesthesia Reaction: No Hx Neurological Disorder: No Hx Respiratory Disorders: No Hx Cardiac Disorders: Yes (HRT MURMUR) Hx Psychiatric Problems: No Hx Miscellaneous Medical Probl: Yes (LUPUS , CIRRHOSIS, ASCITES, RA, HYPOTHYROIDISM , HEPATITIS ) Hx Alcohol Use: No Hx Substance Use: No Hx Tobacco Use: No Physical Exam Vitals Vital Signs Date Temp Pulse Resp B/P (MAP) Pulse Ox O2 O2 Flow FiO2 Time Delivery Rate 07/18/18 64 20 126/76 100 Room Air 15:37 (93) 07/18/18 97.6 61 20 93/50 (64) 100 Room Air 15:21 07/18/18 97.5 71 24 155/81 96 11:57 (105) Physical Exam Const: No acute distress. Head: Atraumatic. Eyes: Normal Conjunctiva. ENT: Normal External Ears, Nose and Mouth. Neck: Full range of motion. No meningismus. Resp: Clear to auscultation bilaterally. Cardio: Regular rate and rhythm. Abd: Soft, moderate ascites, normal bowel sounds, non tender. Skin: No petechiae or rashes. Back: No midline or flank tenderness. Ext: No cyanosis, or edema. Neur: Awake and alert. No focal deficit Psych: Normal Mood and Affect. Results 24 hrs Current Medications Medications Dose Sig/Kevin Start Time Status Last (Trade) Ordered Route PRN Stop Time Admin Dose Reason Admin Lidocaine 5 ml STK-MED 07/18/18 DC 07/18/18 (Xylocaine ONCE .ROUTE 14:14 14:16 1% (Mpf)) 07/18/18 14:15 Procedures/[place] [id number] Radiology Main Line: [phone] DIAGNOSTIC IMAGING REPORT Patient: DES GARRIDO : 1975 Age: 43 Sex: F MR #: [id number] DOS: 07/18/18 0000 Ordering MD: KIMBERLY BERNABE MD Location: E/R Room/Bed: PROCEDURE: XR Chest. CLINICAL INDICATION: Chest pain TECHNIQUE: Single portable view of the chest was obtained COMPARISON: 07/16/2016 FINDINGS: The heart is enlarged. The lungs are clear. There is no pleural effusion or pneumothorax. RPTAT: AA IMPRESSION: Mild Cardiomegaly. .Jose De Jesus Topete MD, Date Time Electronically viewed and signed by .Jose De Jesus Topete MD, on 07/18/2018 12:59 .S/ CC: KIMBERLY BERNABE MD [phone] The patient had abdominocentesis by radiologist who removed about 5 L of ascites fluid MEDICAL MAKING DECISION: The patient is a 43-year-old female, presenting with recurrent ascites, had abdominocentesis with good response, is stable outpatient follow-up. I do not suspect SBP or acute abdomen The differential diagnoses considered include but are not limited to cho lelithiasis, cholecystitis, choledocholithiasis, cholangitis, pancreatitis, hepatitis, gastritis, peptic ulcer disease, gastric ulcer, appendicitis, cystitis, diverticulitis, partial small bowel obstruction. Departure Diagnosis: Primary Impression: Ascites Condition: Good Comments She was discharged with 1 week worth of her medication and advised to follow-up with her doctor for refill I discussed the findings with the patient. I advised the patient to follow-up with the primary physician in about 2-3 days, sooner if needed and return if any concern. Disclaimer: Inadvertent spelling and grammatical errors are likely due to EHR/dictation software use and do not reflect on the overall quality of patient care. Also, please note that the electronic time recorded on this note does not necessarily reflect the actual time of the patient encounter. KIMBERLY BERNABE MD Jul 18, 2018 12:38
[2018-07-18] MEDS ORDERED: LIDOCAINE 1% (MPF) 5 ML VIAL ONE (14:14)
[2018-07-18 15:37] VITALS: BP 126/76; PULSE 64; RESP 20
[2018-07-18] MEDS ORDERED: LEVO200T6 PO (15:41)
[2018-07-18] MEDS ORDERED: FURO-110 PO (15:42)
[2018-07-18] MEDS ORDERED: SPIR50TA PO (15:42)
== END 2018-07-18 15:55 | disposition home or self-care (01) ==
LOC: E/R 11:44
DX: R18.8 Other ascites (principal); E03.9 Hypothyroidism, unspecified
CPT/HCPCS: 49083; 71045; Z7502; Z7610